=== PATIENT | male | born 1935 | race Caucasian/White ===

== ENCOUNTER → 2019-03-26 | Outpatient (CLI) | payer MEDICARE, SELFPAY | END | disposition home or self-care (01) | PROVIDERS: PCP Family Medicine; Referring Provider Family Medicine; Visit Provider Family Medicine | DX: R06.9 Unspecified abnormalities of breathing (principal) | CPT/HCPCS: 86140 ==

== ENCOUNTER 2019-10-27 09:58 | Inpatient (IN) | payer MEDICARE, SELFPAY ==
[2019-10-27] VITALS (13 sets, daily range): BP systolic 106–160; BP diastolic 57–149; PULSE 60–64; RESP 16; TEMP 36.6–37; O2SAT 95–100; BMI 25.0; BMI 22.1
[2019-10-27] MEDS: Lactated Ringers 1,000 ML 100 ML IV (10:45)
[2019-10-27 10:51] LABS: International Normalized Ratio 1.9
[2019-10-27] MEDS: Cefazolin 2 GM in 0.9% Normal Saline 100 ML IV (13:08)
--- NOTE | 2019-10-27 15:05 | OP.PCM_ITS ---
Report of Operation Date of Procedure: 10/27/19 Pre-Operative Diagnosis: Left knee popliteal fossa abscess Post-Operative Diagnosis: Left knee popliteal fossa abscess Surgery/Procedure Performed:: Irrigation debridement irrigation debridement left knee popliteal fossa abscess skin subcutaneous tissue fat fascia and muscle. Description of Surgical Findings:: Total size of the wound was 10 cm x 5 cm with 3 cm in depth. There was tracking proximally under the hamstrings 5 cm. human projectile: Marcel Harden Type of Anesthesia:: General Anesthesiologist: Edy Real Special Medications: Ancef and vancomycin after cultures were taken Specimen's removed: Cultures tissue from the abscess Estimated Blood Loss (mL): 150 mL Fluids Replaced: Crystalloid Description of Procedure: On the day of the procedure patient's left lower extremity was marked in the preoperative area. We again went over risks and benefits of surgery. At this time we proceeded back to the operating room where patient received anesthetic from anesthesia. They assume control C-spine airway and remained controlled throughout remainder procedure. Patient was then flipped to the bed in the prone position with all bony prominences well-padded and chest well-padded. At this time we noted patient had significant thin skin and he did sustain some skin tears during positioning. Patient skin was well taken care of with additional precautions. Feet were placed on a pad. At this time the remaining bony prominences were identified and well-padded. The area was prepped with Betadine while the surgeon scrubbed. Upon reentering the room the area was draped in sterile orthopedic fashion and timeout was called. When agreed upon the side, the site, should be performed, patient's identity and antibiotics that would be given after cultures were taken. At this time the wound was marked out ellipsing both of the posterior wounds which were 2 cm x 2 cm and 1 cm x 1 cm. The surrounding violaceous skin was also set up for ellipse. Incision was taken through skin and subtenons tissue. We encountered a large area of purulent and necrotic tissue this area was carefully debrided debriding skin subtenons tissue fat fascia and even muscle. We are able to track 5 cm up underneath the hamstrings deep. We were careful to protect any vital structures. We used sharp dissection as well as curettage to debride these areas. Once this was completed hemostasis was obta ined. 6 L of normal saline were irrigated throughout the wound under low- pressure lavage. Once this was done the wound was packed using Kerlix soaked in Betadine. Sterile dressing was placed over top and an David bandage was placed. Patient was in placed in the supine position and placed in a knee immobilizer. Patient was awakened anesthesia and transferred the PACU for recovery. Postop plan for this patient we will consult the wound care nurse in-house. We will consult the wound center to help manage the wound long-term. Patient will remain in a knee immobilizer with limited motion due to the posterior knee wound at this time. Infectious disease will also be consulted for chronic suppression of any continuing infection. There is significant possibility patient may need to return for repeat debridements if infection is not contained with wound management. - Complications none - Admit VTE Documentation VTE Present on Admission: No VTE Mechan Device Prophylaxis: SCD's VTE Pharm Prophylaxis ordered?: Yes
[2019-10-27 15:46] LABS: Prothrombin Time Fingerstick 20.3 SEC (11.9-14.4)
--- NOTE | 2019-10-27 15:46 | CON.PCM_ITS ---
Problem List (1) Left popliteal fossa abscess Status: Acute (2) Valvular heart disease Status: Chronic (3) S/P AVR (aortic valve replacement) Status: Chronic (4) S/P mitral valve repair Status: Chronic (5) CHF (congestive heart failure) Status: Chronic Qualifiers: Heart failure type: unspecified Heart failure chronicity: chronic Qualified Code(s): I50.9 - Heart failure, unspecified Comment: Suspect systolic (6) HTN (hypertension) Status: Chronic Qualifiers: Hypertension type: essential hypertension Qualified Code(s): I10 - Essential (primary) hypertension (7) HLD (hyperlipidemia) Status: Chronic Qualifiers: Hyperlipidemia type: unspecified Qualified Code(s): E78.5 - Hyperlipidemia, unspecified (8) PAF (paroxysmal atrial fibrillation) Status: Acute (9) Status cardiac pacemaker Status: Acute (10) BPH (benign prostatic hyperplasia) Status: Acute Reason for Consult Date of Consultation: 10/27/19 Reason for Consultation: Medical consultation History of Present Illness: The patient is a 84 y/o M w/ PMHx: BL LE Chronic venous stasis disease, Colon CA s/p resection, Valvular Heart Disease s/p AVR and mitral valve repair 2014, PAF, CHF (suspect systolic) s/p pacemaker status ([employer]), Hx CVA/TIA, 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 Haywood secondary to ongoing pain and outpatient evaluation with noted left knee popliteal fossa abscess. Patient notes pain controlled currently. He is laying in bed with the immobilizer in place. Postoperatively noted intention for wound care at home as well as aggressive follow-up with wound care center with knee immobilizer and therapy as needed as well as infectious disease consult. Medical consultation requested for medical management. Past Medical History Past Medical History (Chronic Problems): Chronic Problems Valvular heart disease (Chronic) S/P AVR (aortic valve replacement) (Chronic) S/P mitral valve repair (Chronic) CHF (congestive heart failure) (Chronic) Suspect systolic HTN (hypertension) (Chronic) HLD (hyperlipidemia) (Chronic) Allergies soap Allergy (Verified 10/27/19 10:28) PT UNSURE OF REACTION Home Medications: Ambulatory Orders Medication Instructions Recorded Amiodarone HCl [Cordarone] 200 mg PO DAILY 10/26/19 Cefdinir 300 mg PO DAILY 10/26/19 Cholecalciferol (VIT D3) [Vitamin 1,000 unit PO DAILY 10/26/19 D] Doxycycline 100 mg PO BID 10/26/19 Furosemide [Lasix] 80 mg PO DAILY 10/26/19 Lisinopril [Zestril] 2.5 mg PO DAILY 10/26/19 Metoprolol Succinate [Toprol Xl] 25 mg PO DAILY 10/26/19 Pantoprazole Sodium [Protonix] 40 mg PO BID 10/26/19 Potassium Chloride [Klor-Con M20] 30 meq PO DAILY 10/26/19 Saccharomyces Boulardii [Probiotic] 250 mg PO DAILY 10/26/19 Simvastatin [Zocor] 40 mg PO QHS 10/26/19 Tamsulosin HCl [Flomax] 0.4 mg PO DAILY 10/26/19 Warfarin [Coumadin ([facility])] 1 mg PO SUMOWEFR 10/26/19 Warfarin [Coumadin ([facility])] 2 mg PO TUTHSA 10/26/19 traZODone [Desyrel] 100 mg PO QHS 10/26/19 Surgical History: - - Colon cancer resection, appendectomy, abdominal hernia repair, liver cyst intervention, pacemaker placement with replacement, aortic valve replacement, tonsillectomy, left hip replacement, left total knee replacement, left total knee repair, recent left posterior knee abscess I&D. Psychiatric History: No pertinent psych hx Lives: Spouse/ Significant Other Smoking Status: Never smoker Tobacco Use: Non-smoker Alcohol: None Drugs: None - *Family History Maternal History Items: Heart Disease, Hypertension Paternal History Items: Heart Disease Review of Systems Constitutional: Reports: Fatigue. Denies: Anorexia, Chills, Fever, Malaise, Weakness, Weight Change HEENT: Denies: Head Aches, Sinus Congestion, Sinus Drainage Cardiovascular: Reports: Edema. Denies: Chest Pain, Chest Pressure, Chest Tightness, Light Headedness, Orthopnea, Palpitations, Syncope Respiratory: Reports: Shortness of breath upon exertion. Denies: Cough, Shortness of Breath, Shortness of breath at rest, Sputum production Gastrointestinal: Denies: Abdominal Pain, Nausea, Vomiting Genitourinary: Denies: Dysuria Musculoskeletal: Reports: Joint Pain, Joint stiffness, Joint swelling, Joint Tenderness, Leg Pain Skin: Reports: Skin Changes. Denies: Rash, Wounds Neurological: Denies: Numbness, Tingling, Focal weakness Psychiatric: Denies: Anxiety, Depression, Homicidal Ideations, Suicidal Ideations Hematologic/ Lymphatic: Reports: Easy Bruising, Easy Bleeding Patient Problems: Active and Suspected Problems Left popliteal fossa abscess (Acute) PAF (paroxysmal atrial fibrillation) (Acute) Status cardiac pacemaker (Acute) BPH (benign prostatic hyperplasia) (Acute) Subjective: Did upright in the medical surgical bed, denies any current pain, left lower extremity elevated. Objective: Physical Examination: General: awake, alert, oriented x 3 and cooperative, seated upright in the MS bed in no apparent distress. Skin: normal color, turgor, no icterus, cyanosis significant bilateral lower extremity chronic venous stasis skin changes, chronic, status post recent left posterior knee I&D with dressing in place. HEENT: AT/NC, EOMI, PERRLA, MMM, no carotid bruits or JVD noted. Lungs: CTA bilaterally, moderate effort, moderate decrease BL bases, no rales, ronchi or wheezing. Heart: Regular rate and rhythm (paced); no gallop, rub audible, s/p AVR. Abdomen: soft, NTTP, ND, normal BS, no HSM. Extremities: no cyanosis, clubbing, s/p I+D L posterior knee, dressing in place, chronic stasis skin changes, BL LE edema/pitting. Neurological: patient awake, alert, oriented x 3; cognitive function intact; pupils equally reactive to light and accomodation; cranial nerves II-XII grossly normal, moving all extremities except limited left lower extremity movement secondary to knee immobilizer and recent I&D, strength accordingly moderately to severely global decrease. Psychiatric: affect appears normal, no acute evidence of depressive or anxiety feelings. - Physical Exam Vitals/I&O's: Vital Signs Temp Pulse Resp BP Pulse Ox 97.8 F 64 16 160/149 H 99 10/27/19 15:08 10/27/19 14:38 10/27/19 15:08 10/27/19 15:08 10/27/19 15:08 Oxygen Delivery Method Room Air Weight: 174 lb 13.225 oz Body Mass Index (BMI) 25.0 Intake and Output for Last 24 Hours 10/25/19 10/26/19 10/27/19 23:59 23:59 23:59 Intake Total 385 / 385 Balance 385 / 385 Laboratory Results 10/27/19 10:21: POC PT Pending, INR Pending 10/27/19 10:26: PT 21.0 H, INR 1.9 Current Medications Hydrocodone Bitart/Acetaminophen (Funk 5mg-325mg) 1 - 2 tablet PO Q6H PRN PRN PRN Reason: Pain Score 1-5/10 Amiodarone HCl (Cordarone) 200 mg PO DAILY [facility] Atorvastatin Calcium (Lipitor) 20 mg PO QHS [facility] Cefdinir (Omnicef [Equiv]) 300 mg PO DAILY [facility] Cholecalciferol (Vitamin D (25mcg)) 1,000 unit PO DAILYCM [facility] Doxycycline Monohydrate (Doxycycline) 100 mg PO BID [facility] Furosemide (Lasix) 80 mg PO DAILY [facility] Lactated Ringer's () 1,000 mls @ 100 mls/hr IV .Q10H [facility] Last Admin: 10/27/19 10:45 Dose: 100 mls/hr Documented by: Lactated Ringer's () 1,000 mls @ 80 mls/hr IV .[id number] [facility] Cefazolin Sodium () 1 gm in 50 mls @ 150 mls/hr IV Q8H [facility] Stop: 10/28/19 05:19 Lisinopril (Zestril) 2.5 mg PO DAILY [facility] Metoprolol Succinate (Toprol Xl (Beta Philip)) 25 mg PO DAILY [facility] Morphine Sulfate () 2 mg IV Q3H PRN PRN PRN Reason: Pain Score 6-10/10 Ondansetron HCl (Zofran) 4 mg IV Q8H PRN PRN PRN Reason: Nausea Pantoprazole Sodium (Protonix) 40 mg PO BID [facility] Potassium Chlor[facility] (K[facility]Dur) [facility] Sodium Chloride () 10 - 40 ml IV UD PRN PRN Reason: SALINE FLUSH Tamsulosin HCl (Flomax) 0.4 mg PO DAILY@1730 [facility] Trazodone HCl (Desyrel) 100 mg PO QHS [facility] Warfarin Sodium (Jantoven) 1 mg PO SuMoWeFr@1700 [facility] Warfarin Sodium (Jantoven) 2 mg PO TuThSa@1700 [facility] Assessment/Plan All Active Problems Left popliteal fossa abscess (Acute) PAF (paroxysmal atrial fibrillation) (Acute) Status cardiac pacemaker (Acute) BPH (benign prostatic hyperplasia) (Acute) The patient is a 84 y/o M w/ PMHx: Colon CA s/p resection, Valvular Heart Disease s/p AVR and mitral valve repair 2014, PAF, CHF (suspect systolic) s/p pacemaker status, Hx CVA/TIA, 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 Haywood. 1. Intractable left knee pain secondary to acute left knee popliteal fossa abscess: Failed conservative therapies and treatments, admitted per Dr. Haywood for planned L posterior knee I+D, post-operative pain management, bowel regimen, DVT Prophylaxis, PT/OT/CM per Orthopedic surgery discretion. Currently maintained on IV Ancef and Chandan cycling, noted pending infectious disease consultation. 2. Chronic CHF, unclear specific type: We will continue patient Coumadin once allowed with INR trending, Lasix, lisinopril, metoprolol, statin therapy. 3. PAF: s/p pacemaker status, recent evaluation unremarkable, continue patient home amiodarone, metoprolol, Coumadin once cleared per orthopedic surgery with INR trending. 4. Valvular heart disease: Status post AVR and mitral valve repair 2014, no echocardiogram noted in [facility]. 5. Hypertension: Continue home regimen including metoprolol, lisinopril, Lasix with hold parameters, PRN hydralazine. 6. Hyperlipidemia: Continue home statin regimen. 7. BPH: We will continue patient on Flomax regimen. 8. GERD: We will continue patient home Protonix regimen. 9. Hx TIA/CVA: Will continue home coumadin regimen with INR trending once restarted, continue HTN, HLD regimen. 10. History of colon cancer: Status post resection, in remission, previously followed with oncologist 11. DVT prophylaxis: SCDs per orthopedic surgery discretion, resume Coumadin once allowed with INR trending. 12. CODE status: Patient JUAN is his who is present and living will is in place. Discussed CODE status at length including difference between FULL code, DNR-CCA and DNR-CC status. Following discussions about the differences in these status, requested DNR-CCA, no intubation status. Advanced Care Planning Face to Face Time: 16 minutes. Inpatient E&M: 63125 Subs Hosp L3 Procedures: 77918 Advncd Care Plan 30 Min
[2019-10-27] MEDS: Tamsulosin HCl 0.4 MG Capsule PO (17:04)
--- NOTE | 2019-10-27 19:16 | NURSING ---
Dr. Fish paged on drop on blood pressure 20% . Current iv bag is to be complete and then saline lock. Also immobilizer to left leg was removed and dressing dry and intact no drainage noted on his sophie wrap.
[2019-10-27] MEDS: Cefazolin 1 GM/50 ML BAG IV (21:10)
[2019-10-27] MEDS: Doxycycline 100 MG CAPSULE PO (21:11)
[2019-10-27] MEDS: Atorvastatin Calcium 20 MG Tablet PO (21:11)
[2019-10-27] MEDS: Pantoprazole Sodium 40 MG Tablet PO (21:11)
[2019-10-27] MEDS: traZODone 100 MG Tablet PO (21:13)
[2019-10-27] MEDS: HYDROcodone Bitartrate/Apap 5/325 Tablet PO ×2 (21:17→22:53)
[2019-10-28] VITALS: BP 142/99
[2019-10-28 02:00] VITALS: BP 108/51; PULSE 61; RESP 16; TEMP 36.6; O2SAT 94
[2019-10-28 03:08] VITALS: BMI 22.1
[2019-10-28] MEDS: Cefazolin 1 GM/50 ML BAG IV (05:08)
[2019-10-28 05:31] VITALS: BMI 22.1
[2019-10-28 05:46] LABS: Absolute Lymphocyte Count 0.82 X10^3/uL (0.83-4.51); Basophil# 0.02 X10^3/uL; Basophil% 0.4 % (0-1); Eosinophil# 0.11 X10^3/uL; Hematocrit 32.9 % (40-54); Hemoglobin 9.6 g/dL (13.0-16.5); Lymphocyte # 0.82 X10^3/ul (4.0); Lymphocyte % 14.9 % (19-41); Mean Corp Hgb Conc 29.2 g/dL (32-36); Mean Corpuscular Volume 95.9 fL (80-94); Monocyte# 0.55 X10^3/uL; NRBC Flagged by Analyzer 0 % (0-5); Neutrophil % 72.3 % (47-70); Platelet Count 122 K/mm3 (150-450); RBC Distribution Width CV 17.2 % (11.6-14.6); Red Blood Count 3.43 M/mm3 (4.6-6.2); White Blood Count 5.5 K/mm3 (4.4-11.0)
[2019-10-28 06:24] LABS: ALB/GLOB Ratio 0.8 RATIO (0.9-2.4); AST(SGOT) 23 U/L (15-37); Alanine Aminotransfer ALT/SGPT 22 U/L (16-61); Albumin, Serum 2.3 g/dL (3.2-5.0); Alkaline Phosphatase 55 U/L (45-117); Anion Gap 5 (5-15); BUN 14 mg/dL (7-18); BUN/Creat Ratio 17.7 RATIO (10-20); Calcium,Total 7.7 mg/dL (8.5-10.1); Chloride 103 mmol/L (98-107); Creatinine, Serum 0.79 mg/dL (0.70-1.30); EST Glomerular Filtration Rate 99 mL/min (>60); Est Glom Filt Rate - Afr Amer 120 mL/min (>60); Estimated Creatinine Clearance 56.78 ml/min; Glucose 79 mg/dL (74-106); Potassium 4.1 mmol/L (3.5-5.1); Protein, Total 5.3 g/dL (6.4-8.2); Sodium Level 135 mmol/L (136-145)
[2019-10-28 07:00] LABS: International Normalized Ratio 1.8; Prothrombin Time (Protime)PT. 20.6 SECONDS (11.7-14.9)
--- NOTE | 2019-10-28 07:43 | PCM.HP.ID ---
Reason for Consult: Left posterior knee fossa soft tissue infection Consulted by: Dr. Haywood History of Present Illness: The patient is a 84 year old M [] This a very pleasant 84-year-old gentleman with past medical history of valvular heart disease status post aortic valve replacement and mitral valve repair in the past, pacemaker placement, who is had problems with left posterior fossa soft tissue infection and drainage for the past 2 weeks. Patient was taken to the operating room yesterday for surgical I&D at that site. Patient describes the drainage is foul-smelling, operative note reviewed. Patient denies any fevers prior to coming to the hospital. He is currently on oral cephalosporin plus doxycycline. Overall clinically stable postop. Intraoperative cultures are pending. - Medical History Past Medical History (Chronic Problems): Chronic Problems Valvular heart disease (Chronic) S/P AVR (aortic valve replacement) (Chronic) S/P mitral valve repair (Chronic) CHF (congestive heart failure) (Chronic) Suspect systolic HTN (hypertension) (Chronic) HLD (hyperlipidemia) (Chronic) Allergies/Adverse Reactions: Allergies soap Allergy (Verified 10/27/19 10:28) PT UNSURE OF REACTION Home Medications: Ambulatory Orders Medication Instructions Recorded Amiodarone HCl [Cordarone] 200 mg PO DAILY 10/26/19 Cefdinir 300 mg PO DAILY 10/26/19 Cholecalciferol (VIT D3) [Vitamin 1,000 unit PO DAILY 10/26/19 D] Doxycycline 100 mg PO BID 10/26/19 Furosemide [Lasix] 80 mg PO DAILY 10/26/19 Lisinopril [Zestril] 2.5 mg PO DAILY 10/26/19 Metoprolol Succinate [Toprol Xl] 25 mg PO DAILY 10/26/19 Pantoprazole Sodium [Protonix] 40 mg PO BID 10/26/19 Potassium Chloride [Klor-Con M20] 30 meq PO DAILY 10/26/19 Saccharomyces Boulardii [Probiotic] 250 mg PO DAILY 10/26/19 Simvastatin [Zocor] 40 mg PO QHS 10/26/19 Tamsulosin HCl [Flomax] 0.4 mg PO DAILY 10/26/19 Warfarin [Coumadin ([facility])] 1 mg PO SUMOWEFR 10/26/19 Warfarin [Coumadin ([facility])] 2 mg PO TUTHSA 10/26/19 traZODone [Desyrel] 100 mg PO QHS 10/26/19 Vital Signs Temp Pulse Resp BP Pulse Ox 97.9 F 61 16 108/51 L 94 10/28/19 02:00 10/28/19 02:00 10/28/19 02:00 10/28/19 02:00 10/28/19 02:00 Oxygen Delivery Method Room Air Weight: 79.3 kg Body Mass Index (BMI) 25.0 Responsive does not appear toxic lungs are clear heart exam S1-S2 with a systolic click abdomen soft nontender. Left leg postop dressings are in place Laboratory Tests Past 24 Hrs 10/27/19 10/27/19 10/28/19 10:21 10:26 05:08 WBC 5.5 RBC 3.43 L Hgb 9.6 L Hct 32.9 L MCV 95.9 H MCH 28.0 MCHC 29.2 L RDW Std Deviation 60.0 H RDW Coeff of Nilo 17.2 H Plt Count 122 L MPV 10.0 Immature Gran % (Auto) 0.400 Neut % (Auto) 72.3 H Lymph % (Auto) 14.9 L Lamar % (Auto) 10.0 Eos % (Auto) 2.0 Baso % (Auto) 0.4 Absolute Neuts (auto) 4.0 Absolute Lymphs (auto) 0.82 L Nucleated RBC % 0 POC PT 20.3 H PT 21.0 H INR 1.70 1.9 Sodium Potassium Chloride Carbon Dioxide Anion Gap BUN Creatinine Estim Creat Clear Calc Est GFR (MDRD) Af Amer Est GFR (MDRD) Non-Af BUN/Creatinine Ratio Glucose Calcium Total Bilirubin AST ALT Alkaline Phosphatase Total Protein Albumin Globulin Albumin/Globulin Ratio 10/28/19 10/28/19 05:08 05:08 WBC RBC Hgb Hct MCV MCH MCHC RDW Std Deviation RDW Coeff of Nilo Plt Count MPV Immature Gran % (Auto) Neut % (Auto) Lymph % (Auto) Lamar % (Auto) Eos % (Auto) Baso % (Auto) Absolute Neuts (auto) Absolute Lymphs (auto) Nucleated RBC % POC PT PT 20.6 H INR 1.8 Sodium 135 L Potassium 4.1 Chloride 103 Carbon Dioxide 27.0 Anion Gap 5 BUN 14 Creatinine 0.79 Estim Creat Clear Calc 56.78 Est GFR (MDRD) Af Amer 120 Est GFR (MDRD) Non-Af 99 BUN/Creatinine Ratio 17.7 Glucose 79 Calcium 7.7 L Total Bilirubin 1.00 AST 23 ALT 22 Alkaline Phosphatase 55 Total Protein 5.3 L Albumin 2.3 L Globulin 3.0 Albumin/Globulin Ratio 0.8 L - Other Studies Radiology: [] Other Studies: [] Route of nutrition/ use of supplements: [] Nutritional Intake: [] IV Site: [] Giraldo Catheter: [] - Assessment/Plan Antibiotics: [] Assessment/Plan: [] Active and Suspected Problems Left popliteal fossa abscess (Acute) PAF (paroxysmal atrial fibrillation) (Acute) Status cardiac pacemaker (Acute) BPH (benign prostatic hyperplasia) (Acute) Popliteal fossa soft tissue abscess status post surgical I&D. At this point will treat with Unasyn 3 g IV every 6 hours and follow the intraoperative cultures.
[2019-10-28 08:00] VITALS: BP 148/98; PULSE 62; RESP 18; TEMP 36.6; O2SAT 98
[2019-10-28] MEDS: HYDROcodone Bitartrate/Apap 5/325 Tablet PO (08:06)
--- NOTE | 2019-10-28 08:57 | PN.ORTHO_ITS ---
Patient Problems: Active and Suspected Problems Left popliteal fossa abscess (Acute) PAF (paroxysmal atrial fibrillation) (Acute) Status cardiac pacemaker (Acute) BPH (benign prostatic hyperplasia) (Acute) Subjective: The patient was sitting in bed upon examination. Patient denies any chest pain, shortness of breath, dizziness, lightheadedness, nausea or vomiting, or calf pain. Pain is controlled on medications. No adverse overnight events. Patient is currently in a knee immobilizer for the left lower extremity. Wound nurse has been consulted for management. Patient will require set up for wound center postoperatively. Patient lives in [facility] with his . He does wish to try to go home. Infectious disease has been consulted and are managing antibiotics. We are following cultures. Antibiotics will be determined once postoperative cultures are back. Objective: Vital signs stable and afebrile. Patient is able to plantarflex and dorsiflex actively. Sensation is intact to light touch to saphenous, sural, superficial and deep peroneal, and tibial distribution. Knee immobilizer in place. Patient has postoperative dressing with David wrap with no breakthrough drainage. Negative Homans bilaterally, negative signs and symptoms of DVT. - Physical Exam Vitals/I&O's: Vital Signs Temp Pulse Resp BP Pulse Ox 97.9 F 61 16 108/51 L 94 10/28/19 02:00 10/28/19 02:00 10/28/19 02:00 10/28/19 02:00 10/28/19 02:00 Oxygen Delivery Method Room Air Weight: 79.3 kg Body Mass Index (BMI) 25.0 Intake and Output for Last 24 Hours 10/26/19 10/27/19 10/28/19 23:59 23:59 23:59 Intake Total 2185 / 2435 400 / 400 Output Total 325 / 325 Balance 2185 / 2435 75 / 75 Laboratory Results 10/27/19 10:21: POC PT 20.3 H, INR 1.70 10/27/19 10:26: PT 21.0 H, INR 1.9 10/28/19 05:08: WBC 5.5, RBC 3.43 L, Hgb 9.6 L, Hct 32.9 L, MCV 95.9 H, MCH 28.0, MCHC 29.2 L, RDW Std Deviation 60.0 H, RDW Coeff of Nilo 17.2 H, Plt Count 122 L, MPV 10.0, Immature Gran % (Auto) 0.400, Neut % (Auto) 72.3 H, Lymph % (Auto) 14.9 L, [place] % (Auto) 10.0, Eos % (Auto) 2.0, Baso % (Auto) 0.4, Absolute Neuts (auto) 4.0, Absolute Lymphs (auto) 0.82 L, Nucleated RBC % 0 10/28/19 05:08: Sodium 135 L, Potassium 4.1, Chloride 103, Carbon Dioxide 27.0, Anion Gap 5, BUN 14, Creatinine 0.79, Estim Creat Clear Calc 56.78, Est GFR (MDRD) Af Amer 120, Est GFR (MDRD) Non-Af 99, BUN/Creatinine Ratio 17.7, Glucose 79, Calcium 7.7 L, Total Bilirubin 1.00, AST 23, ALT 22, Alkaline Phosphatase 55, Total Protein 5.3 L, Albumin 2.3 L, Globulin 3.0, Albumin/Globulin Ratio 0.8 L 10/28/19 05:08: PT 20.6 H, INR 1.8 Current Medications Hydrocodone Bitart/Acetaminophen ([place] 5mg-325mg) 1 - 2 tablet PO Q6H PRN PRN PRN Reason: Pain Score 1-5/10 Last Admin: 10/28/19 08:06 Dose: 2 tablet Documented by: Albuterol Sulfate (Ventolin Aerosols) 2.5 mg INHALATION Q2H PRN PRN PRN Reason: Dyspnea, wheezing Amiodarone HCl (Cordarone) 200 mg PO DAILY [facility] Atorvastatin Calcium (Lipitor) 20 mg PO QHS [facility] Last Admin: 10/27/19 21:11 Dose: 20 mg Documented by: Cholecalciferol (Vitamin D (25mcg)) [facility] Last Admin: 10/28/19 08:07 Dose: 1,000 unit Documented by: Furosemide (Lasix) 80 mg PO DAILY [facility] Hydralazine HCl (Apresoline Iv) 10 mg IV Q4H PRN PRN PRN Reason: SBP > 160 Lactated Ringer's () 1,000 mls @ 80 mls/hr IV .[id number] [facility] Last Admin: 10/28/19 05:33 Dose: Not Given Documented by: Ampicillin Sodium/Sulbactam (Sodium 3 gm/ Sodium Chloride) 112 mls @ 150 mls/hr IV Q6 [facility] Lisinopril (Zestril) 2.5 mg PO DAILY [facility] Metoprolol Succinate (Toprol Xl (Beta Philip)) 25 mg PO DAILY [facility] Morphine Sulfate () 2 mg IV Q3H PRN PRN PRN Reason: Pain Score 6-10/10 Ondansetron HCl (Zofran) 4 mg IV Q8H PRN PRN PRN Reason: Nausea Pantoprazole Sodium (Protonix) 40 mg PO BID [facility] Last Admin: 10/27/19 21:11 Dose: 40 mg Documented by: Potassium Chloride (K-Dur) [facility] Last Admin: 10/28/19 08:07 Dose: 30 meq Documented by: Sodium Chloride () 10 - 40 ml IV UD PRN PRN Reason: SALINE FLUSH Tamsulosin HCl (Flomax) 0.4 mg PO DAILY@1730 [facility] Last Admin: 10/27/19 17:04 Dose: 0.4 mg Documented by: Trazodone HCl (Desyrel) 100 mg PO QHS [facility] Last Admin: 10/27/19 21:13 Dose: 100 mg Documented by: Warfarin Sodium (Jantoven) 1 mg PO SuMoWeFr@1700 [facility] Warfarin Sodium (Jantoven) 2 mg PO TuThSa@1700 [facility] Medical Necessity - Tobacco Use Smoking Status: Never smoker Tobacco Use: Non-smoker Assessment/Plan All Active Problems Left popliteal fossa abscess (Acute) PAF (paroxysmal atrial fibrillation) (Acute) Status cardiac pacemaker (Acute) BPH (benign prostatic hyperplasia) (Acute) 1. S/P irrigation debridement left knee popliteal fossa abscess, skin subcutaneous tissue, fat fascia, and muscle POD #1 2. Continue Pain Medications: [place] 3. DVT Prophylaxis: Patient has been placed back on his warfarin 4. PT/OT: Continue with knee immobilizer, no range of motion secondary to wound management. 5. H & H: 9.6/32.9, asymptomatic. Secondary to acute blood loss. 6. Encouraged Incentive Spirometry 7. Continue postoperative medical management per medicine 8. Infectious disease consultation: Continue antibiotics per infectious disease. Patient is currently on Unasyn while following cultures. 9. Disposition: Plan will be for possible discharge home once antibiotics have been set up. I would like physical therapy to assess patient to see if he is able to be discharged home safely. Case management will be on board. Patient will require follow-up with the wound center for management. We will also require follow-up with infectious disease for management of antibiotics..
[2019-10-28 10:04] VITALS: PULSE 62
[2019-10-28] MEDS: Pantoprazole Sodium 40 MG Tablet PO ×2 (10:04→22:34)
[2019-10-28] MEDS: Amiodarone 200 MG Tablet PO (10:04)
[2019-10-28] MEDS: Metoprolol(XL)Succ 25 MG Tablet PO (10:04)
[2019-10-28] MEDS: Furosemide 80 MG Tablet PO (10:05)
[2019-10-28] MEDS: Lisinopril 2.5 MG Tablet PO (10:05)
--- NOTE | 2019-10-28 10:40 | PN_ITS ---
Patient Problems: Active and Suspected Problems Left popliteal fossa abscess (Acute) PAF (paroxysmal atrial fibrillation) (Acute) Status cardiac pacemaker (Acute) BPH (benign prostatic hyperplasia) (Acute) Subjective: Patient seen and examined. Complains of intermittent sharp pain behind his left knee which resolves quickly. Denies fever, chills. Denies other complaints. - Physical Exam Vitals/I&O's: Vital Signs Temp Pulse Resp BP Pulse Ox 97.9 F 62 18 148/98 H 98 10/28/19 08:00 10/28/19 10:04 10/28/19 08:00 10/28/19 08:00 10/28/19 08:00 Oxygen Delivery Method Room Air Weight: 174 lb 13.225 oz Body Mass Index (BMI) 25.0 Intake and Output for Last 24 Hours 10/26/19 10/27/19 10/28/19 23:59 23:59 23:59 Intake Total 2185 / 2435 400 / 400 Output Total 325 / 325 Balance 2185 / 2435 75 / 75 General: Alert, Oriented x3, Cooperative HEENT: Atraumatic, PERRLA, EOMI, Normocephalic Neck: Supple, No JVD, Negative Carotid Bruits Lungs: Clear to auscultation, Normal air movement Cardiovascular: Regular rate, No murmurs Abdomen: Bowel Sounds Present, Soft, Non Tender Extremities: No clubbing, No cyanosis, No edema, Capillary Refill Less than 3 Seconds Skin: No rashes, No breakdown, - - Status post left posterior knee I&D. Surrounding erythema. Musculoskeletal: No Tenderness to Palpation of Joints or Extremities Neurological: Cranial nerves II-XII grossly intact, Neuro grossly intact Psych/Mental Status: Normal Affect, Appropriate Laboratory Results 10/27/19 10:21: POC PT 20.3 H, INR 1.70 10/27/19 10:26: PT 21.0 H, INR 1.9 10/28/19 05:08: WBC 5.5, RBC 3.43 L, Hgb 9.6 L, Hct 32.9 L, MCV 95.9 H, MCH 28.0 , MCHC 29.2 L, RDW Std Deviation 60.0 H, RDW Coeff of Nilo 17.2 H, Plt Count 122 L, MPV 10.0, Immature Gran % (Auto) 0.400, Neut % (Auto) 72.3 H, Lymph % (Auto) 14.9 L, [place] % (Auto) 10.0, Eos % (Auto) 2.0, Baso % (Auto) 0.4, Absolute Neuts (auto) 4.0, Absolute Lymphs (auto) 0.82 L, Nucleated RBC % 0 10/28/19 05:08: Sodium 135 L, Potassium 4.1, Chloride 103, Carbon Dioxide 27.0, Anion Gap 5, BUN 14, Creatinine 0.79, Estim Creat Clear Calc 56.78, Est GFR (MDRD) Af Amer 120, Est GFR (MDRD) Non-Af 99, BUN/Creatinine Ratio 17.7, Glucose 79, Calcium 7.7 L, Total Bilirubin 1.00, AST 23, ALT 22, Alkaline Phosphatase 55, Total Protein 5.3 L, Albumin 2.3 L, Globulin 3.0, Albumin/Globulin Ratio 0.8 L 10/28/19 05:08: PT 20.6 H, INR 1.8 Current Medications Hydrocodone Bitart/Acetaminophen ([place] 5mg-325mg) 1 - 2 tablet PO Q6H PRN PRN PRN Reason: Pain Score 1-5/10 Last Admin: 10/28/19 08:06 Dose: 2 tablet Documented by: Albuterol Sulfate (Ventolin Aerosols) 2.5 mg INHALATION Q2H PRN PRN PRN Reason: Dyspnea, wheezing Amiodarone HCl (Cordarone) 200 mg PO DAILY [facility] Last Admin: 10/28/19 10:04 Dose: 200 mg Documented by: Atorvastatin Calcium (Lipitor) 20 mg PO QHS [facility] Last Admin: 10/27/19 21:11 Dose: 20 mg Documented by: Cholecalciferol (Vitamin D (25mcg)) [facility] Last Admin: 10/28/19 08:07 Dose: 1,000 unit Documented by: Furosemide (Lasix) 80 mg PO DAILY [facility] Last Admin: 10/28/19 10:05 Dose: 80 mg Documented by: Hydralazine HCl (Apresoline Iv) 10 mg IV Q4H PRN PRN PRN Reason: SBP > 160 Lactated Ringer's () 1,000 mls @ 80 mls/hr IV .[id number] [facility] Last Admin: 10/28/19 05:33 Dose: Not Given Documented by: Ampicillin Sodium/Sulbactam (Sodium 3 gm/ Sodium Chloride) 112 mls @ 150 mls/hr IV Q6 [facility] Lisinopril (Zestril) 2.5 mg PO DAILY [facility] Last Admin: 10/28/19 10:05 Dose: 2.5 mg Documented by: Metoprolol Succinate (Toprol Xl (Beta Philip)) 25 mg PO DAILY [facility] Last Admin: 10/28/19 10:04 Dose: 25 mg Documented by: Morphine Sulfate () 2 mg IV Q3H PRN PRN PRN Reason: Pain Score 6-10/10 Ondansetron HCl (Zofran) 4 mg IV Q8H PRN PRN PRN Reason: Nausea Pantoprazole Sodium (Protonix) 40 mg PO BID [facility] Last Admin: 10/28/19 10:04 Dose: 40 mg Documented by: Potassium Chloride (K-Dur) [facility] Last Admin: 10/28/19 08:07 Dose: 30 meq Documented by: Sodium Chloride () 10 - 40 ml IV UD PRN PRN Reason: SALINE FLUSH Tamsulosin HCl (Flomax) 0.4 mg PO DAILY@1730 [facility] Last Admin: 10/27/19 17:04 Dose: 0.4 mg Documented by: Trazodone HCl (Desyrel) 100 mg PO QHS [facility] Last Admin: 10/27/19 21:13 Dose: 100 mg Documented by: Warfarin Sodium (Jantoven) 1 mg PO SuMoWeFr@1700 [facility] Warfarin Sodium (Jantoven) 2 mg PO TuThSa@1700 [facility] Medical Necessity - Tobacco Use Smoking Status: Never smoker Tobacco Use: Non-smoker Assessment/Plan All Active Problems Left popliteal fossa abscess (Acute) PAF (paroxysmal atrial fibrillation) (Acute) Status cardiac pacemaker (Acute) BPH (benign prostatic hyperplasia) (Acute) 1. Chronic CHF, unclear type-no exacerbation. Continue home Lasix, lisinopril regimen. 2. Paroxysmal atrial fibrillation status post pacemaker placement-continue amiodarone, metoprolol. Resume Coumadin. 3. Acute left knee popliteal fossa abscess status post I&D by Dr. Haywood 10/27/2019-on IV Ancef. Cultures pending. ID consulted. Wound RN consult. Patient will need follow-up at wound center at discharge. 4. 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 Hypertension-stable, continue home regimen. 6. Hyperlipidemia-continue statin. 7. BPH-continue Flomax. 8. GERD-continue Protonix. 9. History of TIA/CVA-continue statin. Resume Coumadin when appropriate. 10. History of colon cancer-status post resection. DVT prophylaxis-SCDs, Coumadin This patient was seen by JOSE Matos under the supervision of Dr. Craven.
[2019-10-28 11:08] VITALS: BMI 22.1
[2019-10-28] MEDS: 0.9% Saline Lock 10 ML Syringe IV (12:04)
--- NOTE | 2019-10-28 12:33 | NURSING ---
wound photo: left posteromedial knee
--- NOTE | 2019-10-28 13:38 | CASEMGMT ---
LUIS SOTO Face to Face with patient for initial transition planning/care coordination assessment. LUIS SOTO introduced self and role at [facility]. Patient lying in bed, alert and oriented, at bedside. Patient currently resides at [facility] per Myra. Myra states that Franco DILLON is not able to care for patient when he is discharged from the hospital. and patient would like TCU at discharge. [facility] [place] Per , TCU has bed and available and they are able to accept pending Precert. LUIS SOTO updated patient and and are agreeable to TCU at discharge. Disposition Plan: TCU pending precert Yolanda DALEY, RN, CM
--- NOTE | 2019-10-28 13:45 | CASEMGMT ---
Social Work Note DONNA updated that pt and pt's are agreeable to [facility] TCU. DONNA placed a call to Lana in TCU and provided referral. Lana states she would have a bed available for pt tomorrow. DONNA explained that cultures are still pending and pt will need PT/OT evaluations for pre-cert to be submitted. Lana states understanding. DONNA updated RN CM that TCU is able to accept pending pre-cert. RN CM updated pt and pt's . Pt needs PT/OT evaluations to be completed for pre-cert. SW will submit for pre-cert once PT/OT evaluations are completed. Plan: TCU pending pre-cert Yolanda Golden INDUSTRIAL ENGINEERING DIRECTOR, [employer] LEADER
[2019-10-28 15:00] VITALS: BP 98/74; PULSE 58; RESP 18; TEMP 37.2; O2SAT 98
[2019-10-28 15:08] VITALS: BMI 22.1
--- NOTE | 2019-10-28 16:40 | CASEMGMT ---
Social Work Note PT/OT notes are available. DONNA placed a call to Marivel at [facility] ([phone]) and left message regarding referral. DONNA faxed referral to [facility]. Plan: TCU pending pre-cert Yolanda Golden MSW, OYSTER BED WORKER
[2019-10-28] MEDS: Jantoven 2 MG Tablet PO (16:52)
[2019-10-28] MEDS: Tamsulosin HCl 0.4 MG Capsule PO (16:53)
[2019-10-28 19:08] VITALS: BMI 22.1
[2019-10-28 22:02] VITALS: BP 118/66; PULSE 60; RESP 16; TEMP 37; O2SAT 95
[2019-10-28] MEDS: Atorvastatin Calcium 20 MG Tablet PO (22:34)
[2019-10-28] MEDS: traZODone 100 MG Tablet PO (22:34)
[2019-10-28 23:04] LABS: Probe Check PASS; Specimen Processing Control PASS
[2019-10-29 03:45] VITALS: BP 118/67; PULSE 61; RESP 16; TEMP 36.8; O2SAT 95
[2019-10-29 07:07] LABS: Hematocrit 33.2 % (40-54); Hemoglobin 10.1 g/dL (13.0-16.5); Mean Corp Hgb Conc 30.4 g/dL (32-36); Mean Corpuscular Hgb 28.6 pg (27.0-32.0); Mean Corpuscular Volume 94.1 fL (80-94); Mean Platelet Vol. 10.2 fl (6.2-12.0); Platelet Count 122 K/mm3 (150-450); RBC Distribution Width SD 58.4 fl (35.1-43.9); Red Blood Count 3.53 M/mm3 (4.6-6.2); White Blood Count 6.1 K/mm3 (4.4-11.0)
[2019-10-29 07:10] VITALS: O2SAT 96
--- NOTE | 2019-10-29 07:14 | PCM.PN.ORT ---
Patient Problems: Active and Suspected Problems Left popliteal fossa abscess (Acute) PAF (paroxysmal atrial fibrillation) (Acute) Status cardiac pacemaker (Acute) BPH (benign prostatic hyperplasia) (Acute) Subjective: The patient was sitting in bed upon examination. Patient denies any chest pain, shortness of breath, dizziness, lightheadedness, nausea or vomiting, or calf pain. Pain is controlled on medications. No adverse overnight events. Patient states he does get sharp pains in the posterior aspect of the knee but it is controlled on medications. Wound VAC has been placed over the posterior knee. There is no significant drainage in the tubing and canister. Plan will be for patient to go to the transitional care unit and we are currently waiting on pre-CERT. Objective: Vital signs stable and afebrile. Patient is able to plantarflex and dorsiflex actively. Sensation is intact to light touch to saphenous, sural, superficial and deep peroneal, and tibial distribution. Dressing is clean dry and intact with no breakthrough bleeding Knee immobilizer in place Wound VAC in place with no significant drainage in the canister or tubing Negative Homans bilaterally, negative signs and symptoms of DVT. - Physical Exam Vitals/I&O's: Vital Signs Temp Pulse Resp BP Pulse Ox 98.2 F 61 16 118/67 95 10/29/19 03:45 10/29/19 03:45 10/29/19 03:45 10/29/19 03:45 10/29/19 03:45 Oxygen Delivery Method Room Air Weight: 79.3 kg Body Mass Index (BMI) 25.0 Intake and Output for Last 24 Hours 10/27/19 10/28/19 10/29/19 23:59 23:59 23:59 Intake Total 2185 / 2435 1424 / 1524 524 / 524 Output Total 425 / 525 1550 / 1550 Balance 2185 / 2435 999 / 999 -1026 / -1026 General: Alert, Oriented x3, Cooperative, No apparent distress Microbiology Past 72 Hours 10/27/19 13:50 Tissue - Knee Gram Stain - Final 10/27/19 13:50 Tissue - Knee Wound Culture - Preliminary No growth-Final to follow Laboratory Results 10/28/19 21:13: COVID-19 (LYNNE) Negative 10/29/19 06:00: WBC 6.1, RBC 3.53 L, Hgb 10.1 L, Hct 33.2 L, MCV 94.1 H, MCH 28.6, MCHC 30.4 L, RDW Std Deviation 58.4 H, RDW Coeff of Nilo 17.0 H, Plt Count 122 L, MPV 10.2 10/29/19 06:00: PT Pending, INR Pending Current Medications Hydrocodone Bitart/Acetaminophen ([place] 5mg-325mg) 1 - 2 tablet PO Q6H PRN PRN PRN Reason: Pain Score 1-5/10 Last Admin: 10/28/19 08:06 Dose: 2 tablet Documented by: Albuterol Sulfate (Ventolin Aerosols) 2.5 mg INHALATION Q2H PRN PRN PRN Reason: Dyspnea, wheezing Amiodarone HCl (Cordarone) 200 mg PO DAILY [facility] Last Admin: 10/28/19 10:04 Dose: 200 mg Documented by: Atorvastatin Calcium (Lipitor) 20 mg PO QHS [facility] Last Admin: 10/28/19 22:34 Dose: 20 mg Documented by: Cholecalciferol (Vitamin D (25mcg)) [facility] Last Admin: 10/28/19 08:07 Dose: 1,000 unit Documented by: Furosemide (Lasix) 80 mg PO DAILY [facility] Last Admin: 10/28/19 10:05 Dose: 80 mg Documented by: Hydralazine HCl (Apresoline Iv) 10 mg IV Q4H PRN PRN PRN Reason: SBP > 160 Ampicillin Sodium/Sulbactam (Sodium 3 gm/ Sodium Chloride) 112 mls @ 150 mls/hr IV Q6 [facility] Last Infusion: 10/29/19 06:38 Dose: Infused Documented by: Lisinopril (Zestril) 2.5 mg PO DAILY [facility] Last Admin: 10/28/19 10:05 Dose: 2.5 mg Documented by: Metoprolol Succinate (Toprol Xl (Beta Philip)) 25 mg PO DAILY [facility] Last Admin: 10/28/19 10:04 Dose: 25 mg Documented by: Morphine Sulfate () 2 mg IV Q3H PRN PRN PRN Reason: Pain Score 6-10/10 Ondansetron HCl (Zofran) 4 mg IV Q8H PRN PRN PRN Reason: Nausea Pantoprazole Sodium (Protonix) 40 mg PO BID [facility] Last Admin: 10/28/19 22:34 Dose: 40 mg Documented by: Potassium Chloride (K-Dur) 30 meq PO DAILYCM [facility] Last Admin: 10/28/19 08:07 Dose: 30 meq Documented by: Sodium Chloride () 10 - 40 ml IV UD PRN PRN Reason: SALINE FLUSH Last Admin: 10/28/19 12:04 Dose: 10 ml Documented by: Tamsulosin HCl (Flomax) 0.4 mg PO DAILY@1730 [facility] Last Admin: 10/28/19 16:53 Dose: 0.4 mg Documented by: Trazodone HCl (Desyrel) 100 mg PO QHS [facility] Last Admin: 10/28/19 22:34 Dose: 100 mg Documented by: Warfarin Sodium (Jantoven) 1 mg PO SuMoWeFr@1700 [facility] Warfarin Sodium (Jantoven) 2 mg PO TuThSa@1700 [facility] Last Admin: 10/28/19 16:52 Dose: 2 mg Documented by: Medical Necessity - Tobacco Use Smoking Status: Never smoker Tobacco Use: Non-smoker Assessment/Plan All Active Problems Left popliteal fossa abscess (Acute) PAF (paroxysmal atrial fibrillation) (Acute) Status cardiac pacemaker (Acute) BPH (benign prostatic hyperplasia) (Acute) 1. S/P irrigation debridement left knee popliteal fossa abscess, skin subcutaneous tissue, fat fascia, and muscle POD #2 2. Continue Pain Medications: [place] 3. DVT Prophylaxis: Patient has been placed back on his warfarin 4. PT/OT: Continue with knee immobilizer, no range of motion secondary to wound management. 5. H & H: 10.1/33.2, asymptomatic. Secondary to acute blood loss. 6. Encouraged Incentive Spirometry 7. Continue postoperative medical management per medicine 8. Infectious disease consultation: Continue antibiotics per infectious disease. Patient is currently on Unasyn while following cultures. Preliminary cultures are with no growth and no organisms seen. 9. Disposition: We currently are waiting on pre-CERT for patient to be transitioned over to the transitional care unit. This will be very important as we will be able to follow the wound very closely with the wound center. Patient will need close follow-up with the wound center for management. Currently are waiting on final antibiotics from cultures per infectious disease. We will continue with the wound VAC.
[2019-10-29 07:17] LABS: International Normalized Ratio 1.8; Prothrombin Time (Protime)PT. 19.9 SECONDS (11.7-14.9)
--- NOTE | 2019-10-29 09:03 | CASEMGMT ---
Addendum entered by Becka Randhawa 10/29/19 11:18: Pt ready for discharge. TCU notified and orders faxed. Pt is aware and would like to visit with prior to d/c to TCU. RN made aware. here at this time. FRANCIE Kyle Original Note: Social Work Percert obtained from insurance and pt accepted in TCU. SW met with pt and informed and Pt is agreeable to transfer. Physician notified and plans to discharge pt today. Pt states he will be talking to his and will let her know. Lana in TCU notified of d/c today. FRANCIE Kyle
--- NOTE | 2019-10-29 09:16 | PCM.TXEXTCAR ---
- Diet 10/28/19 10:17 Diet: Cardiac - Heart Healthy Food consistency:: Regular Liquid Consistency:: Regular/Thin Is pt able to select menu?: yes Diet Comments: low vitamin K Pt on coumadin - Routine Orders/Code Status Code Status: DNRCC-A - no intubation - Wound(s) LT KNEE POST Wound Type: Surgical Incision Dressing Change: applied KCI wound VAC LT ARM Wound Type: Skin Tear - Therapies Weight Bearing: knee immobilizer left Physical Therapy: Eval and Treat Occupational Therapy: Eval and Treat - Problem/Diagnosis (1) Left popliteal fossa abscess Status: Acute Current Visit: Yes (2) S/P AVR (aortic valve replacement) Status: Chronic Current Visit: Yes (3) HTN (hypertension) Status: Chronic Current Visit: Yes (4) HLD (hyperlipidemia) Status: Chronic Current Visit: Yes (5) PAF (paroxysmal atrial fibrillation) Status: Chronic Current Visit: Yes - Allergies/Procedures Done in Hospital Allergies/Adverse Reactions: Allergies soap Allergy (Verified 10/27/19 10:28) PT UNSURE OF REACTION Procedures: Wound Vac placement, - - irrigation debridement left knee popliteal fossa abcess 10/27/19 - Type of Care/Length of Stay Estimated LOS: Convalescent Care Less Than 30 days Type of Care Needed: Skilled Rehab Potential: Good Prognosis: Good - Additional Orders/Day of Discharge Day of Discharge: 10/29/19 - Dietary and Speech Recommendations Dietitian Recommendations/Changes: Will provide 1 scoop beneprotein w/ meals to promote wound healing. Will provide ensure pudding/magic cup w/ meals to provide additional abbey/pro if consumed. - Follow Up Care Primary Care Physician: Benjamin Fabian MD [Primary Care Provider] - Please Follow Up With: Radames Haywood MD When: in two weeks if discharged home, otherwise one week after discharge TCU
--- NOTE | 2019-10-29 09:33 | PCM.PROGNOTE ---
Patient Problems: Active and Suspected Problems Left popliteal fossa abscess (Acute) Status cardiac pacemaker (Acute) BPH (benign prostatic hyperplasia) (Acute) Subjective: Patient seen and examined. Denies significant pain. Denies fever, chills. - Physical Exam Vitals/I&O's: Vital Signs Temp Pulse Resp BP Pulse Ox 98.2 F 61 16 118/67 96 10/29/19 03:45 10/29/19 03:45 10/29/19 03:45 10/29/19 03:45 10/29/19 07:10 Oxygen Delivery Method Room Air Weight: 174 lb 13.225 oz Body Mass Index (BMI) 25.0 Intake and Output for Last 24 Hours 10/27/19 10/28/19 10/29/19 23:59 23:59 23:59 Intake Total 2185 / 2435 1424 / 1524 524 / 524 Output Total 425 / 525 1550 / 1550 Balance 2185 / 2435 999 / 999 -1026 / -1026 General: Alert, Oriented x3, Cooperative HEENT: Atraumatic, PERRLA, EOMI, Normocephalic Neck: Supple, No JVD, Negative Carotid Bruits Lungs: Clear to auscultation, Normal air movement Cardiovascular: Regular rate, No murmurs Abdomen: Bowel Sounds Present, Soft, Non Tender Extremities: No clubbing, No cyanosis, No edema, Capillary Refill Less than 3 Seconds Skin: No rashes, No breakdown, - - Status post left posterior knee I&D. Wound VAC and dressing intact. Musculoskeletal: No Tenderness to Palpation of Joints or Extremities Neurological: Cranial nerves II-XII grossly intact, Neuro grossly intact Psych/Mental Status: Normal Affect, Appropriate Microbiology Past 72 Hours 10/27/19 13:50 Tissue - Knee Gram Stain - Final 10/27/19 13:50 Tissue - Knee Wound Culture - Preliminary No growth-Final to follow Laboratory Results 10/28/19 21:13: COVID-19 (LYNNE) Negative 10/29/19 06:00: WBC 6.1, RBC 3.53 L, Hgb 10.1 L, Hct 33.2 L, MCV 94.1 H, MCH 28.6, MCHC 30.4 L, RDW Std Deviation 58.4 H, RDW Coeff of Nilo 17.0 H, Plt Count 122 L, MPV 10.2 10/29/19 06:00: PT 19.9 H, INR 1.8 Current Medications Hydrocodone Bitart/Acetaminophen ([place] 5mg-325mg) 1 - 2 tablet PO Q6H PRN PRN PRN Reason: Pain Score 1-5/10 Last Admin: 10/28/19 08:06 Dose: 2 tablet Documented by: Albuterol Sulfate (Ventolin Aerosols) 2.5 mg INHALATION Q2H PRN PRN PRN Reason: Dyspnea, wheezing Amiodarone HCl (Cordarone) 200 mg PO DAILY [facility] Last Admin: 10/28/19 10:04 Dose: 200 mg Documented by: Atorvastatin Calcium (Lipitor) 20 mg PO QHS [facility] Last Admin: 10/28/19 22:34 Dose: 20 mg Documented by: Cholecalciferol (Vitamin D (25mcg)) [facility] Last Admin: 10/29/19 08:18 Dose: 1,000 unit Documented by: Furosemide (Lasix) 80 mg PO DAILY [facility] Last Admin: 10/28/19 10:05 Dose: 80 mg Documented by: Hydralazine HCl (Apresoline Iv) 10 mg IV Q4H PRN PRN PRN Reason: SBP > 160 Ampicillin Sodium/Sulbactam (Sodium 3 gm/ Sodium Chloride) 112 mls @ 150 mls/hr IV Q6 [facility] Last Infusion: 10/29/19 06:38 Dose: Infused Documented by: Lisinopril (Zestril) 2.5 mg PO DAILY [facility] Last Admin: 10/28/19 10:05 Dose: 2.5 mg Documented by: Metoprolol Succinate (Toprol Xl (Beta Philip)) 25 mg PO DAILY [facility] Last Admin: 10/28/19 10:04 Dose: 25 mg Documented by: Morphine Sulfate () 2 mg IV Q3H PRN PRN PRN Reason: Pain Score 6-10/10 Ondansetron HCl (Zofran) 4 mg IV Q8H PRN PRN PRN Reason: Nausea Pantoprazole Sodium (Protonix) 40 mg PO BID [facility] Last Admin: 10/28/19 22:34 Dose: 40 mg Documented by: Potassium Chloride (K-Dur) [facility]q [facility] Last Admin: 10/29/19 08:17 Dose: 30 meq Documented by: Sodium Chloride () 10 - 40 ml IV UD PRN PRN Reason: SALINE FLUSH Last Admin: 10/28/19 12:04 Dose: 10 ml Documented by: Tamsulosin HCl (Flomax) 0.4 mg PO DAILY@1730 [facility] Last Admin: 10/28/19 16:53 Dose: 0.4 mg Documented by: Trazodone HCl (Desyrel) 100 mg PO QHS [facility] Last Admin: 10/28/19 22:34 Dose: 100 mg Documented by: Warfarin Sodium (Jantoven) 1 mg PO SuMoWeFr@1700 [facility] Warfarin Sodium (Jantoven) 2 mg PO TuThSa@1700 [facility] Last Admin: 10/28/19 16:52 Dose: 2 mg Documented by: Warfarin Sodium (Jantoven) 2 mg PO X1 ONE Stop: 10/29/19 09:32 Medical Necessity - Tobacco Use Smoking Status: Never smoker Tobacco Use: Non-smoker Assessment/Plan All Active Problems Left popliteal fossa abscess (Acute) Status cardiac pacemaker (Acute) BPH (benign prostatic hyperplasia) (Acute) 1. Chronic CHF, unclear type-no exacerbation. Continue home Lasix, lisinopril regimen. 2. Paroxysmal atrial fibrillation status post pacemaker placement-continue amiodarone, metoprolol. Resume Coumadin. 3. Acute left knee popliteal fossa abscess status post I&D by Dr. Haywood 10/27/2019-Cultures preliminary showed no growth, final pending. ID consulted. Wound RN consult. Patient will need follow-up at wound center at discharge. Transition to Augmentin to complete 2-week course per ID recommendations. 4. 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 Hypertension-stable, continue home regimen. 6. Hyperlipidemia-continue statin. 7. BPH-continue Flomax. 8. GERD-continue Protonix. 9. History of TIA/CVA-continue statin, Coumadin. 10. History of colon cancer-status post resection. DVT prophylaxis-SCDs, Coumadin Discharge planning: TCU 10/29/2019. This patient was seen by JOSE Matos under the supervision of Dr. Craven.
[2019-10-29 09:46] VITALS: BP 112/80; PULSE 57; RESP 18; TEMP 36.6; O2SAT 96
[2019-10-29] MEDS: Amiodarone 200 MG Tablet PO (10:01)
[2019-10-29] MEDS: Furosemide 80 MG Tablet PO (10:01)
[2019-10-29] MEDS: Pantoprazole Sodium 40 MG Tablet PO (10:01)
[2019-10-29 10:02] VITALS: BP 112/80; PULSE 57
[2019-10-29] MEDS: HYDROcodone Bitartrate/Apap 5/325 Tablet PO (10:06)
[2019-10-29] MEDS: Jantoven 2 MG Tablet PO (10:08)
--- NOTE | 2019-10-29 10:14 | PHA.DC.MR ---
Pharmacy Service has performed discharge medication reconciliation for this patient. The patient's discharge medication list was reviewed for discrepancies and discrepancies were resolved. Home Medications Amiodarone HCl [Cordarone] 200 mg PO DAILY 10/26/19 Cholecalciferol (VIT D3) [Vitamin D3] 1,000 unit PO DAILY 10/26/19 Furosemide [Lasix] 80 mg PO DAILY 10/26/19 Lisinopril [Zestril] 2.5 mg PO DAILY 10/26/19 Metoprolol Succinate [Toprol Xl] 25 mg PO DAILY 10/26/19 Pantoprazole Sodium [Protonix] 40 mg PO BID 10/26/19 Potassium Chloride [Klor-Con M20] 30 meq PO DAILY 10/26/19 Saccharomyces Boulardii [Probiotic] 250 mg PO DAILY 10/26/19 Simvastatin [Zocor] 40 mg PO QHS 10/26/19 Tamsulosin HCl [Flomax] 0.4 mg PO DAILY 10/26/19 Warfarin [Coumadin] 1 mg PO SUMOWEFR 10/26/19 Warfarin [Coumadin] 2 mg PO TUTHSA 10/26/19 traZODone [Desyrel] 100 mg PO QHS 10/26/19 Amoxicillin/Potassium Clav [Augmentin 875-125 Tablet] 1 ea PO BIDCM #28 tab 10/29/19 Hydrocodone Bitart/Apap 5-325 [[place] 5/325] 1 - 2 tab PO Q6H PRN PRN 7 Days #30 tab 10/29/19
[2019-10-29] MEDS: 0.9% Saline Lock 10 ML Syringe IV (12:16)
--- NOTE | 2019-10-29 12:53 | PN.ID_ITS ---
Patient Problems: Active and Suspected Problems Left popliteal fossa abscess (Acute) Status cardiac pacemaker (Acute) BPH (benign prostatic hyperplasia) (Acute) Subjective: Patient overall clinically stable tolerating Unasyn well. No fever. Currently has to the left popliteal area. I did have the opportunity to talk to the omer yoder's at the bedside and apparently the patient had a complicated left periprosthetic knee infection in late March and required parenteral anabiotic therapy at that time. The surgery occurred at [facility] and I did contact [facility] microbiology; 1 of the 3 specimens from the left knee obtained on March 27 grew Citrobacter koseri. Patient was seen by Dr. Nohemi bonilla and was on a oral suppressive antibiotic. This information was obtained through talking to the patient's . Objective: Not appear toxic lungs are clear heart exam S1-S2 abdomen soft nontender - Physical Exam Vitals/I&O's: Vital Signs Temp Pulse Resp BP Pulse Ox 97.9 F 57 L 18 112/80 96 10/29/19 09:46 10/29/19 10:02 10/29/19 09:46 10/29/19 10:02 10/29/19 09:46 Oxygen Delivery Method Room Air Weight: 79.3 kg Body Mass Index (BMI) 25.0 Intake and Output for Last 24 Hours 10/27/19 10/28/19 10/29/19 23:59 23:59 23:59 Intake Total 2185 / 2435 1424 / 1524 974 / 974 Output Total 425 / 525 1950 / 1950 Balance 2185 / 2435 999 / 999 -976 / -976 Microbiology Past 72 Hours 10/27/19 13:50 Tissue - Knee Gram Stain - Final 10/27/19 13:50 Tissue - Knee Wound Culture - Preliminary No growth-Final to follow Laboratory Results 10/28/19 21:13: COVID-19 (LYNNE) Negative 10/29/19 06:00: WBC 6.1, RBC 3.53 L, Hgb 10.1 L, Hct 33.2 L, MCV 94.1 H, MCH 28.6, MCHC 30.4 L, RDW Std Deviation 58.4 H, RDW Coeff of Nilo 17.0 H, Plt Count 122 L, MPV 10.2 10/29/19 06:00: PT 19.9 H, INR 1.8 Current Medications Hydrocodone Bitart/Acetaminophen ([place] 5mg-325mg) 1 - 2 tablet PO Q6H PRN PRN PRN Reason: Pain Score 1-5/10 Last Admin: 10/29/19 10:06 Dose: 1 tablet Documented by: Albuterol Sulfate (Ventolin Aerosols) 2.5 mg INHALATION Q2H PRN PRN PRN Reason: Dyspnea, wheezing Amiodarone HCl (Cordarone) 200 mg PO DAILY [facility] Last Admin: 10/29/19 10:01 Dose: 200 mg Documented by: Atorvastatin Calcium (Lipitor) 20 mg PO QHS [facility] Last Admin: 10/28/19 22:34 Dose: 20 mg Documented by: Cholecalciferol (Vitamin D (25mcg)) [facility] Last Admin: 10/29/19 08:18 Dose: 1,000 unit Documented by: Furosemide (Lasix) 80 mg PO DAILY [facility] Last Admin: 10/29/19 10:01 Dose: 80 mg Documented by: Hydralazine HCl (Apresoline Iv) 10 mg IV Q4H PRN PRN PRN Reason: SBP > 160 Ampicillin Sodium/Sulbactam (Sodium 3 gm/ Sodium Chloride) 112 mls @ 150 mls/hr IV Q6 [facility] Last Admin: 10/29/19 12:16 Dose: 150 mls/hr Documented by: Lisinopril (Zestril) 2.5 mg PO DAILY [facility] Last Admin: 10/29/19 10:03 Dose: Not Given Documented by: Metoprolol Succinate (Toprol Xl (Beta Philip)) 25 mg PO DAILY [facility] Last Admin: 10/29/19 10:02 Dose: Not Given Documented by: Morphine Sulfate () 2 mg IV Q3H PRN PRN PRN Reason: Pain Score 6-10/10 Ondansetron HCl (Zofran) 4 mg IV Q8H PRN PRN PRN Reason: Nausea Pantoprazole Sodium (Protonix) 40 mg PO BID [facility] Last Admin: 10/29/19 10:01 Dose: 40 mg Documented by: Potassium Chloride (K-Dur) 30 meq PO DAILYCM [facility] Last Admin: 10/29/19 08:17 Dose: 30 meq Documented by: Sodium Chloride () 10 - 40 ml IV UD PRN PRN Reason: SALINE FLUSH Last Admin: 08/28/20 12:16 Dose: 10 ml Documented by: Tamsulosin HCl (Flomax) 0.4 mg PO DAILY@1730 [facility] Last Admin: 10/28/19 16:53 Dose: 0.4 mg Documented by: Trazodone HCl (Desyrel) 100 mg PO QHS [facility] Last Admin: 10/28/19 22:34 Dose: 100 mg Documented by: Warfarin Sodium (Jantoven) 1 mg PO SuMoWeFr@1700 [facility] Warfarin Sodium (Jantoven) 2 mg PO TuThSa@1700 [facility] Last Admin: 10/28/19 16:52 Dose: 2 mg Documented by: Medical Necessity - Tobacco Use Smoking Status: Never smoker Tobacco Use: Non-smoker Route of nutrition/ use of supplements: [] Nutritional Intake: [] IV Site: [] Giraldo Catheter: [] Left popliteal soft tissue abscess surgical I&D. Operative cultures remain negative today. At this point will be reasonable to transition to oral antibiotics in the form of Augmentin 875 mg twice daily for 2 more weeks.
--- NOTE | 2019-10-29 12:53 | NURSING ---
report called to tcu-
[2019-10-29 12:55] VITALS: BP 108/68; PULSE 60; RESP 18; TEMP 36.7; O2SAT 95
== END 2019-10-29 13:20 | disposition skilled nursing facility (03) | DRG 940 ==
LOC: ACINP 10:04 → MS3 16:05
PROVIDERS: Family Medicine; Nurse Practitioner Family; Admitting Provider Specialist; PCP Family Medicine; Referring Provider Specialist; Visit Provider Internal Medicine
PROC: 0KBR0ZZ Excision of Left Upper Leg Muscle, Open Approach (ICD-10-PCS; principal; 2019-10-27 12:00)
DX: T84.54XD Infection and inflammatory reaction due to internal left knee prosthesis, subsequent encounter (principal); L02.416 Cutaneous abscess of left lower limb; I50.22 Chronic systolic (congestive) heart failure; I11.0 Hypertensive heart disease with heart failure; E78.00 Pure hypercholesterolemia, unspecified; Z95.0 Presence of cardiac pacemaker; Z96.652 Presence of left artificial knee joint; Z95.2 Presence of prosthetic heart valve; I48.0 Paroxysmal atrial fibrillation; Z79.01 Long term (current) use of anticoagulants; Z79.2 Long term (current) use of antibiotics; Z79.899 Other long term (current) drug therapy; N40.0 Benign prostatic hyperplasia without lower urinary tract symptoms; K21.9 Gastro-esophageal reflux disease without esophagitis; Z86.73 Personal history of transient ischemic attack (TIA), and cerebral infarction without residual deficits; Z85.038 Personal history of other malignant neoplasm of large intestine; Z66 Do not resuscitate
CPT/HCPCS: 36415; 36416; 80053; 85025; 85027; 85610; 87015; 87070; 87075; 87077; 87102; 87116; 87186; 87205; 87206; 87635; 94799; 97162; 97166; 99251; J7050; J7120; A4216; G0463; J0295; J2405; U0003

== ENCOUNTER 2019-10-29 13:36 | Inpatient (IN) | payer MEDICARE, SELFPAY ==
[2019-10-27 10:29] VITALS: BMI 25.0
[2019-10-29 13:54] VITALS: BP 118/50; PULSE 60; RESP 17; TEMP 36.8; O2SAT 95; BMI 25.9
--- NOTE | 2019-10-29 14:16 | CASEMGMT ---
Social Work Discussed patient's progress in therapy. Pt confirmed DNR-CCA, no intubation. MOLST form completed and place in chart. Becky Morales, OTR OWNER OPERATOR [employer]
[2019-10-29] MEDS: Pantoprazole Sodium 40 MG Tablet PO (18:16)
[2019-10-29] MEDS: Amox/Clavulanate 875 MG Tablet PO (18:16)
[2019-10-29] MEDS: HYDROcodone Bitartrate/Apap 5/325 Tablet PO (19:40)
[2019-10-29] MEDS: Atorvastatin Calcium 20 MG Tablet PO (19:45)
[2019-10-29] MEDS: traZODone 100 MG Tablet PO (23:33)
[2019-10-30 04:00] VITALS: BP 129/61; PULSE 68; RESP 20; TEMP 37; O2SAT 94
[2019-10-30 06:00] VITALS: PULSE 68
[2019-10-30] MEDS: Lisinopril 2.5 MG Tablet PO (06:00)
[2019-10-30] MEDS: Tamsulosin HCl 0.4 MG Capsule PO (06:00)
[2019-10-30] MEDS: Metoprolol(XL)Succ 25 MG Tablet PO (06:00)
[2019-10-30] MEDS: Furosemide 80 MG Tablet PO (06:00)
[2019-10-30] MEDS: Pantoprazole Sodium 40 MG Tablet PO ×2 (06:00→17:20)
[2019-10-30] MEDS: Menthol/Lanolin/Calamine/Znox 113 GM Tube 1 APPLIC TOPICAL ×2 (06:01→17:21)
[2019-10-30] MEDS: Amiodarone 200 MG Tablet PO (06:01)
[2019-10-30 08:24] LABS: Absolute Lymphocyte Count 0.94 X10^3/uL (0.83-4.51); Absolute Neutrophil Count 4.5 X10^3/uL (2.0-7.7); Basophil# 0.03 X10^3/uL; Basophil% 0.5 % (0-1); Eosinophil# 0.17 X10^3/uL; Eosinophils% 2.8 % (0-5); Hematocrit 36.2 % (40-54); Lymphocyte # 0.94 X10^3/ul (4.0); Lymphocyte % 15.3 % (19-41); Mean Corp Hgb Conc 30.4 g/dL (32-36); Mean Corpuscular Hgb 28.6 pg (27.0-32.0); Mean Corpuscular Volume 94.3 fL (80-94); Monocyte# 0.52 X10^3/uL; Monocyte% 8.5 % (0-10); NRBC Flagged by Analyzer 0 % (0-5); Neutrophil # 4.45 X10^3/uL (2.7-7.7); Neutrophil % 72.6 % (47-70); Platelet Count 143 K/mm3 (150-450); RBC Distribution Width CV 17.1 % (11.6-14.6); RBC Distribution Width SD 58.3 fl (35.1-43.9); Red Blood Count 3.84 M/mm3 (4.6-6.2); White Blood Count 6.1 K/mm3 (4.4-11.0)
[2019-10-30 08:43] LABS: Anion Gap 4 (5-15); BUN 13 mg/dL (7-18); BUN/Creat Ratio 14.4 RATIO (10-20); Calcium,Total 8.1 mg/dL (8.5-10.1); Chloride 102 mmol/L (98-107); EST Glomerular Filtration Rate 85 mL/min (>60); Est Glom Filt Rate - Afr Amer 103 mL/min (>60); Estimated Creatinine Clearance 63.09 ml/min; Glucose 84 mg/dL (74-106); Potassium 3.8 mmol/L (3.5-5.1); Sodium Level 137 mmol/L (136-145)
[2019-10-30 09:09] LABS: International Normalized Ratio 1.7; Prothrombin Time (Protime)PT. 19.9 SECONDS (11.7-14.9)
[2019-10-30] MEDS: Amox/Clavulanate 875 MG Tablet PO ×2 (09:34→17:20)
[2019-10-30] MEDS: Tuberculin,Purif.prot.deriv. 50 TU/ML Vial 5 ML ID (09:37)
[2019-10-30 14:57] VITALS: BP 109/64; PULSE 60; RESP 16; TEMP 36.9; O2SAT 95
[2019-10-30] MEDS: Jantoven 2 MG Tablet PO (17:20)
[2019-10-30] MEDS: Senna/Docusate Sodium 1 Tablet PO (18:34)
[2019-10-30] MEDS: Bisacodyl 10 MG Suppository RECTAL (18:35)
[2019-10-30] MEDS: traZODone 100 MG Tablet PO (23:20)
[2019-10-30] MEDS: Atorvastatin Calcium 20 MG Tablet PO (23:20)
[2019-10-31] MEDS: Polyethylene Glycol 3350 17 GM PACKET PO (05:29)
[2019-10-31] MEDS: Lisinopril 2.5 MG Tablet PO (05:32)
[2019-10-31] MEDS: Furosemide 80 MG Tablet PO (05:32)
[2019-10-31] MEDS: Senna/Docusate Sodium 1 Tablet PO ×2 (05:32→17:26)
[2019-10-31] MEDS: Amiodarone 200 MG Tablet PO (05:32)
[2019-10-31] MEDS: Pantoprazole Sodium 40 MG Tablet PO ×2 (05:32→17:26)
[2019-10-31] MEDS: Tamsulosin HCl 0.4 MG Capsule PO (05:32)
[2019-10-31 05:33] VITALS: PULSE 63
[2019-10-31] MEDS: Menthol/Lanolin/Calamine/Znox 113 GM Tube 1 APPLIC TOPICAL ×2 (05:33→17:27)
[2019-10-31] MEDS: Metoprolol(XL)Succ 25 MG Tablet PO (05:33)
[2019-10-31 05:34] VITALS: BP 116/72; PULSE 63; RESP 16; TEMP 36.6; O2SAT 95
[2019-10-31 06:41] LABS: International Normalized Ratio 1.9; Prothrombin Time (Protime)PT. 21.1 SECONDS (11.7-14.9)
[2019-10-31] MEDS: Amox/Clavulanate 875 MG Tablet PO ×2 (08:27→17:26)
[2019-10-31 11:05] VITALS: RESP 18; O2SAT 94
[2019-10-31 14:04] VITALS: BP 108/59; PULSE 52; RESP 20; TEMP 36.8; O2SAT 96
[2019-10-31] MEDS: Jantoven 2 MG Tablet PO (17:26)
[2019-10-31] MEDS: Atorvastatin Calcium 20 MG Tablet PO (20:38)
--- NOTE | 2019-10-31 21:58 | HP.PCM_ITS ---
Problem List (1) Debility Status: Acute (2) Colon cancer Status: Chronic (3) GERD (gastroesophageal reflux disease) Status: Chronic (4) Hypokalemia Status: Chronic (5) Vitamin D deficiency Status: Chronic (6) Left popliteal fossa abscess Status: Acute (7) CHF (congestive heart failure) Status: Chronic Qualifiers: Comment: Suspect systolic (8) HTN (hypertension) Status: Chronic Qualifiers: (9) HLD (hyperlipidemia) Status: Chronic Qualifiers: (10) PAF (paroxysmal atrial fibrillation) Status: Chronic (11) BPH (benign prostatic hyperplasia) Status: Chronic History of Present Illness Date of Admission: 10/29/19 Chief Complaint: Here for rehabilitation, strengthening, prior to discharge home with . The patient is a 84 year old Male with below past medical history significant for status post left total knee replacement. Patient developed pain, swelling, malodorous drainage from left knee. 10/27/2019 Dr. Haywood performed irrigation, debridement left knee popliteal fossa abscess skin subcutaneous tissue fat fascia and muscle. 10/29/2019 Dr. Askew noted operative cultures negative, transition antibiotics to Augmentin to complete 2 week course. 10/29/2019 Admit to TCU with debility, here for rehabilitation, strengthening, prior to discharge home with . Past Medical History Past Medical History (Chronic Problems): Chronic Problems Valvular heart disease (Chronic) S/P AVR (aortic valve replacement) (Chronic) S/P mitral valve repair (Chronic) CHF (congestive heart failure) (Chronic) Suspect systolic HTN (hypertension) (Chronic) HLD (hyperlipidemia) (Chronic) PAF (paroxysmal atrial fibrillation) (Chronic) BPH (benign prostatic hyperplasia) (Chronic) Colon cancer (Chronic) GERD (gastroesophageal reflux disease) (Chronic) Hypokalemia (Chronic) Vitamin D deficiency (Chronic) Allergies soap Allergy (Verified 10/27/19 10:28) PT UNSURE OF REACTION Home Medications: Ambulatory Orders Medication Instructions Recorded Amiodarone HCl [Cordarone] 200 mg PO DAILY 10/26/19 Cholecalciferol (VIT D3) [Vitamin 1,000 unit PO DAILY 10/26/19 D3] Furosemide [Lasix] 80 mg PO DAILY 10/26/19 Lisinopril [Zestril] 2.5 mg PO DAILY 10/26/19 Metoprolol Succinate [Toprol Xl] 25 mg PO DAILY 10/26/19 Pantoprazole Sodium [Protonix] 40 mg PO BID 10/26/19 Potassium Chloride [Klor-Con M20] 30 meq PO DAILY 10/26/19 Saccharomyces Boulardii [Probiotic] 250 mg PO DAILY 10/26/19 Simvastatin [Zocor] 40 mg PO QHS 10/26/19 Tamsulosin HCl [Flomax] 0.4 mg PO DAILY 10/26/19 Warfarin [Coumadin] 1 mg PO SUMOWEFR 10/26/19 Warfarin [Coumadin] 2 mg PO TUTHSA 10/26/19 traZODone [Desyrel] 100 mg PO QHS 10/26/19 Amoxicillin/Potassium Clav 1 ea PO BIDCM 10/29/19 [Augmentin 875-125 Tablet] Hydrocodone Bitart/Apap 5-325 1 - 2 tab PO Q6H PRN PRN 7 Days 10/29/19 [[place] 5/325] #30 tab Surgical History: appendectomy, herniorrhaphy - Abdominal., pacemaker implantation, total hip arthroplasty - Left., total knee arthroplasty - Left., tonsillectomy, - - Colon cancer resection, liver cyst intervention, aortic valve replacement, left total knee repair, recent left posterior knee abscess I&D. Psychiatric History: No pertinent psych hx Lives: Spouse/ Significant Other Smoking Status: Never smoker Tobacco Use: Non-smoker Alcohol: None Drugs: None - *Family History Maternal History Items: Heart Disease, Hypertension Paternal History Items: Heart Disease Review of Systems Constitutional: Denies: Chills, Fever, Weight Change HEENT: Denies: Head Aches, Sinus Congestion, Sinus Drainage Cardiovascular: Denies: Chest Pain, Palpitations Respiratory: Denies: Cough, Shortness of breath at rest, Sputum production Gastrointestinal: Denies: Abdominal Pain, Nausea, Vomiting Genitourinary: Denies: Dysuria Musculoskeletal: Denies: Joint Pain, Joint Tenderness Skin: Denies: Rash, Wounds Neurological: Denies: Numbness, Tingling, Focal weakness Psychiatric: Denies: Anxiety, Depression, Homicidal Ideations, Suicidal Ideations Hematologic/ Lymphatic: Denies: Easy Bruising, Easy Bleeding VTE Information - Inpt Only VTE Present on Admission: No VTE Mechan Device Prophylaxis: Knee High JAVON Hose VTE Pharm Prophylaxis ordered?: No Reason prophylaxis not ordered:: Treatment Not Indicated Patient Problems: Active and Suspected Problems Debility (Acute) - Physical Exam Vitals/I&O's: Vital Signs Temp Pulse Resp BP Pulse Ox 98.2 F 52 L 20 H 108/59 L 96 10/31/19 14:04 10/31/19 14:04 10/31/19 14:04 10/31/19 14:04 10/31/19 14:04 Oxygen Delivery Method Room Air Weight: 81.76 kg Body Mass Index (BMI) 25.9 Intake and Output for Last 24 Hours 10/29/19 10/30/19 10/31/19 23:59 23:59 23:59 Intake Total 240 / 240 900 / 900 1080 / 1080 Output Total 1974 / 1974 200 / 200 1275 / 1275 Balance -1735 / -1735 700 / 700 -195 / -195 General: Alert, Oriented x3, Cooperative HEENT: Atraumatic, PERRLA, EOMI, Normocephalic Neck: Supple, No JVD, Negative Carotid Bruits Lungs: Clear to auscultation, Normal air movement Cardiovascular: Regular rate, No murmurs Abdomen: Bowel Sounds Present, Soft, Non Tender Extremities: No edema, Capillary Refill Less than 3 Seconds Skin: No rashes, No breakdown Musculoskeletal: No Tenderness to Palpation of Joints or Extremities Neurological: Cranial nerves II-XII grossly intact Psych/Mental Status: Normal Affect, Appropriate Laboratory Results 10/30/19 05:30: COVID-19 (LYNNE) Not Detected 10/31/19 06:05: PT 21.1 H, INR 1.9 Current Medications Hydrocodone Bitart/Acetaminophen ([place] 5mg-325mg) 1 - 2 tablet PO Q6H PRN PRN PRN Reason: Pain Score 1-10/10 Last Admin: 10/29/19 19:40 Dose: 1 tablet Documented by: Amiodarone HCl (Cordarone) 200 mg PO DAILY [facility] Last Admin: 10/31/19 05:32 Dose: 200 mg Documented by: Amoxicillin/Clavulanate Potassium (Augmentin Tablet) 875 mg PO BIDCM [facility] Last Admin: 10/31/19 17:26 Dose: 875 mg Documented by: Atorvastatin Calcium (Lipitor) 20 mg PO QHS [facility] Last Admin: 10/31/19 20:38 Dose: 20 mg Documented by: Bisacodyl (Dulcolax) 10 mg RECTAL DAILY PRN PRN Reason: Constipation Last Admin: 10/30/19 18:35 Dose: 10 mg Documented by: Calamine/Phenol (Calmoseptine Ointment) 1 applic TOPICAL BID [facility]; Protocol Last Admin: 10/31/19 17:27 Dose: 1 applicatio Documented by: Cholecalciferol (Vitamin D (25mcg)) 1,000 unit PO DAILY [facility] Last Admin: 10/31/19 05:32 Dose: 1,000 unit Documented by: Furosemide (Lasix) 80 mg PO DAILY [facility] Last Admin: 10/31/19 05:32 Dose: 80 mg Documented by: Lisinopril (Zestril) 2.5 mg PO DAILY [facility] Last Admin: 10/31/19 05:32 Dose: 2.5 mg Documented by: Metoprolol Succinate (Toprol Xl (Beta Philip)) 25 mg PO DAILY [facility] Last Admin: 10/31/19 05:33 Dose: 25 mg Documented by: Pantoprazole Sodium (Protonix) 40 mg PO BID [facility] Last Admin: 10/31/19 17:26 Dose: 40 mg Documented by: Polyethylene Glycol (Miralax) 17 gm PO DAILY [facility] Last Admin: 10/31/19 05:29 Dose: 17 gm Documented by: Potassium Chloride (K-Dur) 30 meq PO DAILYCM [facility] Last Admin: 10/31/19 08:27 Dose: 30 meq Documented by: Senna/Docusate Sodium (Senokot-S, Skylar-Colace) 1 tablet PO BID [facility] Last Admin: 10/31/19 17:26 Dose: 1 tablet Documented by: Tamsulosin HCl (Flomax) 0.4 mg PO DAILY [facility] Last Admin: 10/31/19 05:32 Dose: 0.4 mg Documented by: Trazodone HCl (Desyrel) 100 mg PO QHS [facility] Last Admin: 10/30/19 23:20 Dose: 100 mg Documented by: Tuberculin PPD (Tubersol, Aplisol, Ppd) 5 tu ID [id number] ONE Stop: 11/06/19 10:01 Warfarin Sodium (Jantoven) 2 mg PO DAILY@1700 [facility] Last Admin: 10/31/19 17:26 Dose: 2 mg Documented by: Assessment/Plan All Active Problems Left popliteal fossa abscess (Acute) Status cardiac pacemaker (Acute) Debility (Acute) 84 year old male with below past medical history significant for left total knee replacement hospitalized for irrigation, debridement left popliteal fossa abscess with Dr. Haywood 10/27/2019, admitted to TCU with debility, here for rehabilitation, strengthening, prior to discharge home with . * Debility - PT/OT. * Pain - Tylenol 1000MG Q6H PRN pain (1-3), Oxycodone 5MG Q4H PRN pain (4-10). * Bowel - Miralax 17GM daily, Senna/colace 1 tablet BID, Dulcolax 10MG [place] daily PRN. * Adult immunization - Administer Prevnar 13, Pneumovax 23, Fluzone as appropriate. * DVT prophylaxis - Not necessary, already on warfarin. * Atrial Fibrillation - Metoprolol succinate 25MG daily, Amiodarone 200MG daily, Warfarin 2MG daily, follow INR. * Left popliteal fossa abscess s/p irrigation, debridement - Augmentin 875MG BID thru 11/11/2019. * Hyperlipidemia - Atorvastatin 20MG QHS. * Vitamin D deficiency - D3 1000IU daily. * Congestive heart failure - Metoprolol succinate 25MG daily, Lisinopril 2.5MG daily, Lasix 80MG daily. * Skin irritation - Calmoseptine BID. * GERD - Pantoprazole 40MG BID. * Hypokalemia - K-Dur 30MEQ daily. * BPH - Tamsulosin 0.4MG daily. * Insomnia - Trazodone 100MG QHS.
[2019-10-31] MEDS: traZODone 100 MG Tablet PO (23:19)
[2019-11-01 05:48] VITALS: BP 119/58; PULSE 61; RESP 18; TEMP 37.1; O2SAT 95
[2019-11-01] MEDS: Amiodarone 200 MG Tablet PO (05:54)
[2019-11-01 05:55] VITALS: BP 119/58; PULSE 61
[2019-11-01] MEDS: Lisinopril 2.5 MG Tablet PO (05:55)
[2019-11-01] MEDS: Tamsulosin HCl 0.4 MG Capsule PO (05:55)
[2019-11-01] MEDS: Furosemide 80 MG Tablet PO (05:55)
[2019-11-01] MEDS: Metoprolol(XL)Succ 25 MG Tablet PO (05:55)
[2019-11-01] MEDS: Pantoprazole Sodium 40 MG Tablet PO ×2 (05:55→17:35)
[2019-11-01] MEDS: Menthol/Lanolin/Calamine/Znox 113 GM Tube 1 APPLIC TOPICAL ×2 (05:57→17:40)
[2019-11-01 05:59] LABS: International Normalized Ratio 2.1; Prothrombin Time (Protime)PT. 22.9 SECONDS (11.7-14.9)
[2019-11-01] MEDS: Amox/Clavulanate 875 MG Tablet PO ×2 (08:44→17:35)
[2019-11-01 13:44] VITALS: BP 87/50; PULSE 60; RESP 14; TEMP 36.8; O2SAT 94
--- NOTE | 2019-11-01 14:12 | PHA.CONS_ITS ---
<RuslanMei M - Last Filed: 11/01/19 14:12> Progress Note - Pharmacy Subjective: TCU ADMISSION Objective: Allergies soap Allergy (Verified 10/27/19 10:28) PT UNSURE OF REACTION Current Medications Generic Name Dose Route Start Last Admin Trade Name Freq PRN Reason Stop Dose Admin Acetaminophen 1,000 mg 10/31/19 22:11 Tylenol PO Q6H PRN PRN Pain Score 1-3/10 Amiodarone HCl 200 mg 10/30/19 06:00 11/01/19 05:54 Cordarone PO 200 mg DAILY ISABELLA Administration Amoxicillin/Clavulanate Potassium 875 mg 10/29/19 17:00 11/01/19 08:44 Augmentin Tablet PO 11/10/19 23:59 875 mg BIDCM ISABELLA Administration Atorvastatin Calcium 20 mg 10/29/19 22:00 10/31/19 20:38 Lipitor PO 20 mg QHS ISABELLA Administration Bisacodyl 10 mg 10/30/19 17:27 10/30/19 18:35 Dulcolax RECTAL 10 mg DAILY PRN Administration Constipation Calamine/Phenol 1 applic 10/30/19 06:00 11/01/19 05:57 Calmoseptine Ointment TOPICAL 1 applicatio BID ISABELLA Administration Protocol Cholecalciferol 1,000 unit 10/30/19 06:00 11/01/19 05:55 Vitamin D (25mcg) PO 1,000 unit DAILY ISABELLA Administration Furosemide 80 mg 10/30/19 06:00 11/01/19 05:55 Lasix PO 80 mg DAILY ISABELLA Administration Lisinopril 2.5 mg 10/30/19 06:00 11/01/19 05:55 Zestril PO 2.5 mg DAILY ISABELLA Administration Metoprolol Succinate 25 mg 10/30/19 06:00 11/01/19 05:55 Toprol Xl (Beta Philip) PO 25 mg DAILY ISABELLA Administration Oxycodone HCl 5 mg 10/31/19 22:12 Oxyir PO Q4H PRN PRN Pain Score 4-10/10 Pantoprazole Sodium 40 mg 10/29/19 18:00 11/01/19 05:55 Protonix PO 40 mg BID ISABELLA Administration Polyethylene Glycol 17 gm 10/31/19 06:00 11/01/19 05:55 Miralax PO Not Given DAILY ISABELLA Potassium Chloride 30 meq 10/30/19 08:00 11/01/19 08:44 K-Dur PO 30 meq DAILYCM ISABELLA Administration Senna/Docusate Sodium 1 tablet 10/30/19 18:00 11/01/19 05:55 Senokot-S, Skylar-Colace PO Not Given BID ISABELLA Tamsulosin HCl 0.4 mg 10/30/19 06:00 11/01/19 05:55 Flomax PO 0.4 mg DAILY ISABELLA Administration Trazodone HCl 100 mg 10/29/19 22:00 10/31/19 23:19 Desyrel PO 100 mg QHS ISABELLA Administration Tuberculin PPD 5 tu 11/06/19 10:00 Tubersol, Aplisol, Ppd ID 11/06/19 10:01 X1 ONE Warfarin Sodium 2 mg 10/31/19 17:00 10/31/19 17:26 Jantoven PO 2 mg DAILY@1700 ISABELLA Administration Problem List Debility (Acute) Colon cancer (Chronic) GERD (gastroesophageal reflux disease) (Chronic) Hypokalemia (Chronic) Vitamin D deficiency (Chronic) Vital Signs Temp Pulse Resp BP Pulse Ox 98.3 F 60 14 87/50 L 94 11/01/19 13:44 11/01/19 13:44 11/01/19 13:44 11/01/19 13:44 11/01/19 13:44 Oxygen Delivery Method Room Air Weight: 81.76 kg Body Mass Index (BMI) 25.9 Sodium 137 mmol/L (136-145) 10/30/19 07:42 Potassium 3.8 mmol/L (3.5-5.1) 10/30/19 07:42 Chloride 102 mmol/L (98-107) 10/30/19 07:42 Carbon Dioxide 31.0 mmol/L (21.0-32.0) 10/30/19 07:42 Anion Gap 4 (5-15) L 10/30/19 07:42 BUN 13 mg/dL (7-18) 10/30/19 07:42 Creatinine 0.90 mg/dL (0.70-1.30) 10/30/19 07:42 Est GFR (MDRD) Af Amer 103 mL/min (>60) 10/30/19 07:42 Est GFR (MDRD) Non-Af 85 mL/min (>60) 10/30/19 07:42 BUN/Creatinine Ratio 14.4 RATIO (10-20) 10/30/19 07:42 Glucose 84 mg/dL (74-106) 10/30/19 07:42 Assessment/Plan: 1. Pain: Tylenol 1000mg PO Q6h PRN Pain 1-3/10, Oxycodone 5mg PO Q4h PRN pain 4- 10/10. Please continue to monitor for S/S increased/decreased pain. 2. Atrial Fibrillation: Toprol XL 25mg PO Daily, Amiodarone 200mg PO Daily, Warfarin 2mg PO Daily. Please continue to monitor BP, pulse, INR, S/S bleeding/bruising. 3. CHF: Toprol XL 25mg PO Daily, Lisinopril 2.5mg PO Daily, Lasix 80mg PO Daily, Lipitor 20mg PO QHS, K-Dur 30mEQ PO Daily. Please continue to monitor fluid status, BP, HR, electrolytes. 4. Abscess; S/P Debridement: Augmentin 875mg PO BID thru 11/11/19. Please continue to monitor renal function, diarrhea, resolution of infection. 5. BPH: Flomax 0.4mg PO Daily. Please continue to monitor for improvement in BPH symptoms. 6. GERD: Protonix 40mg PO BID. Please continue to monitor for clinical improvement in GERD symptoms. Please encourage non-pharmacologic therapies as well when able. 7. Vitamin D Deficiency: Cholecalciferol 1,000 unit PO Daily. Please continue to monitor Vitamin D levels as clinically indicated. Psychotropic Medications: 8. Insomnia: Trazodone 100mg PO QHS. Please consider a GDR by 04/2020 as clinically indicated. Unnecessary Medications: Bowel Regimen: Miralax 17g PO Daily, Senna/Docusate 1 tab PO BID, Dulcolax 10mg OR Daily PRN. Please continue to monitor for increased/decreased bowel movements/diarrhea. Date of Note:: 11/01/19 - Provider Comments Provider responsibility: Provider responsible to enter orders to implement recommendations <Wilber [place]ata [place] - Last Filed: 11/01/19 19:50> Progress Note - Pharmacy Subjective: [] Objective: Allergies soap Allergy (Verified 10/27/19 10:28) PT UNSURE OF REACTION Current Medications Generic Name Dose Route Start Last Admin Trade Name Freq PRN Reason Stop Dose Admin Acetaminophen 1,000 mg 10/31/19 22:11 Tylenol PO Q6H PRN PRN Pain Score 1-3/10 Amiodarone HCl 200 mg 10/30/19 06:00 11/01/19 05:54 Cordarone PO 200 mg DAILY ISABELLA Administration Amoxicillin/Clavulanate Potassium 875 mg 10/29/19 17:00 11/01/19 17:35 Augmentin Tablet PO 11/10/19 23:59 875 mg BIDCM ISABELLA Administration Atorvastatin Calcium 20 mg 10/29/19 22:00 10/31/19 20:38 Lipitor PO 20 mg QHS ISABELLA Administration Bisacodyl 10 mg 10/30/19 17:27 10/30/19 18:35 Dulcolax RECTAL 10 mg DAILY PRN Administration Constipation Calamine/Phenol 1 applic 10/30/19 06:00 11/01/19 17:40 Calmoseptine Ointment TOPICAL 1 applicatio BID [facility] Administration Protocol Cholecalciferol 1,000 unit 10/30/19 06:00 11/01/19 05:55 Vitamin D (25mcg) PO 1,000 unit DAILY [facility] Administration Furosemide 80 mg 10/30/19 06:00 11/01/19 05:55 Lasix PO 80 mg DAILY [facility] Administration Lisinopril 2.5 mg 10/30/19 06:00 11/01/19 05:55 Zestril PO 2.5 mg DAILY [facility] Administration Metoprolol Succinate 25 mg 10/30/19 06:00 11/01/19 05:55 Toprol Xl (Beta Philip) PO 25 mg DAILY [facility] Administration Oxycodone HCl 5 mg 10/31/19 22:12 Oxyir PO Q4H PRN PRN Pain Score 4-10/10 Pantoprazole Sodium 40 mg 10/29/19 18:00 11/01/19 17:35 Protonix PO 40 mg BID [facility] Administration Polyethylene Glycol 17 gm 10/31/19 06:00 11/01/19 05:55 Miralax PO Not Given DAILY [facility] Potassium Chloride 30 meq 10/30/19 08:00 11/01/19 08:44 K-Dur PO 30 meq DAILYCM [facility] Administration Senna/Docusate Sodium 1 tablet 10/30/19 18:00 11/01/19 17:40 Senokot-S, Skylar-Colace PO Not Given BID [facility] Tamsulosin HCl 0.4 mg 10/30/19 06:00 11/01/19 05:55 Flomax PO 0.4 mg DAILY ISABELLA Administration Trazodone HCl 100 mg 10/29/19 22:00 10/31/19 23:19 Desyrel PO 100 mg QHS ISABELLA Administration Tuberculin PPD 5 tu 11/06/19 10:00 Tubersol, Aplisol, Ppd ID 11/06/19 10:01 X1 ONE Warfarin Sodium 2 mg 10/31/19 17:00 11/01/19 17:35 Jantoven PO 2 mg DAILY@1700 ISABELLA Administration Problem List Debility (Acute) Colon cancer (Chronic) GERD (gastroesophageal reflux disease) (Chronic) Hypokalemia (Chronic) Vitamin D deficiency (Chronic) Vital Signs Temp Pulse Resp BP Pulse Ox 98.3 F 60 14 87/50 L 94 11/01/19 13:44 11/01/19 13:44 11/01/19 13:44 11/01/19 13:44 11/01/19 13:44 Oxygen Delivery Method Room Air Weight: 81.76 kg Body Mass Index (BMI) 25.9 Sodium 137 mmol/L (136-145) 10/30/19 07:42 Potassium 3.8 mmol/L (3.5-5.1) 10/30/19 07:42 Chloride 102 mmol/L (98-107) 10/30/19 07:42 Carbon Dioxide 31.0 mmol/L (21.0-32.0) 10/30/19 07:42 Anion Gap 4 (5-15) L 10/30/19 07:42 BUN 13 mg/dL (7-18) 10/30/19 07:42 Creatinine 0.90 mg/dL (0.70-1.30) 10/30/19 07:42 Est GFR (MDRD) Af Amer 103 mL/min (>60) 10/30/19 07:42 Est GFR (MDRD) Non-Af 85 mL/min (>60) 10/30/19 07:42 BUN/Creatinine Ratio 14.4 RATIO (10-20) 10/30/19 07:42 Glucose 84 mg/dL (74-106) 10/30/19 07:42 Assessment/Plan: Psychotropic Medications: Unnecessary Medications: Bowel Regimen: - Provider Comments Provider responsibility: Provider responsible to enter orders to implement recommendations Provider Comments to Recommendations by Pharmacy: Agree
[2019-11-01] MEDS: Jantoven 2 MG Tablet PO (17:35)
[2019-11-01] MEDS: traZODone 100 MG Tablet PO (23:34)
[2019-11-01] MEDS: Atorvastatin Calcium 20 MG Tablet PO (23:34)
[2019-11-02 05:17] VITALS: BP 126/67; PULSE 60; RESP 16; TEMP 36.9; O2SAT 97
[2019-11-02] MEDS: Tamsulosin HCl 0.4 MG Capsule PO (05:18)
[2019-11-02] MEDS: Amiodarone 200 MG Tablet PO (05:18)
[2019-11-02 05:19] VITALS: BP 126/67; PULSE 60
[2019-11-02] MEDS: Lisinopril 2.5 MG Tablet PO (05:19)
[2019-11-02] MEDS: Metoprolol(XL)Succ 25 MG Tablet PO (05:19)
[2019-11-02] MEDS: Pantoprazole Sodium 40 MG Tablet PO ×2 (05:19→17:36)
[2019-11-02] MEDS: Furosemide 80 MG Tablet PO (05:19)
[2019-11-02] MEDS: Menthol/Lanolin/Calamine/Znox 113 GM Tube 1 APPLIC TOPICAL ×2 (05:23→17:38)
[2019-11-02 06:21] LABS: International Normalized Ratio 2.3; Prothrombin Time (Protime)PT. 24.5 SECONDS (11.7-14.9)
[2019-11-02] MEDS: Amox/Clavulanate 875 MG Tablet PO ×2 (09:10→17:36)
--- NOTE | 2019-11-02 10:19 | NURSING ---
wound photo: left posterior knee
[2019-11-02 13:30] VITALS: BP 114/66; PULSE 61; RESP 16; TEMP 36.9; O2SAT 96
[2019-11-02] MEDS: Jantoven 2 MG Tablet PO (17:36)
[2019-11-02] MEDS: Atorvastatin Calcium 20 MG Tablet PO (23:38)
[2019-11-02] MEDS: traZODone 100 MG Tablet PO (23:38)
[2019-11-03 05:07] VITALS: BP 128/71; PULSE 61; RESP 16; TEMP 37.1; O2SAT 98
[2019-11-03 05:08] VITALS: BP 128/71; PULSE 61
[2019-11-03] MEDS: Lisinopril 2.5 MG Tablet PO (05:08)
[2019-11-03] MEDS: Tamsulosin HCl 0.4 MG Capsule PO (05:08)
[2019-11-03] MEDS: Metoprolol(XL)Succ 25 MG Tablet PO (05:08)
[2019-11-03] MEDS: Amiodarone 200 MG Tablet PO (05:08)
[2019-11-03] MEDS: Pantoprazole Sodium 40 MG Tablet PO ×2 (05:08→17:05)
[2019-11-03] MEDS: Furosemide 80 MG Tablet PO (05:09)
[2019-11-03] MEDS: Menthol/Lanolin/Calamine/Znox 113 GM Tube 1 APPLIC TOPICAL ×2 (05:11→17:06)
[2019-11-03 06:00] LABS: International Normalized Ratio 2.7; Prothrombin Time (Protime)PT. 28.2 SECONDS (11.7-14.9)
[2019-11-03] MEDS: Amox/Clavulanate 875 MG Tablet PO ×2 (08:05→17:06)
--- NOTE | 2019-11-03 10:33 | CASEMGMT ---
PHQ9 and BIMS interviews completed on this date for MDS assessment. FRANCIE Kyle
[2019-11-03 13:41] VITALS: BP 99/51; PULSE 60; RESP 14; TEMP 36.7; O2SAT 97
--- NOTE | 2019-11-03 13:52 | CASEMGMT ---
Social Work IDT met with patient and via conference call for care plan meeting. Discussed patient's progress in therapy. Pt is modA for bed mobility, Krista to ambulate 20 ft with FWW, Krista for sit to stands and transfers with FWW. Pt is maxA for bathing, toileting and LE dressing, min for UE dressing, toilet transfers CGA. Pt is on a heart healthy diet, low in vitamin K, bite size pieces, receiving magic cup, and receiving dominga cup ice cream. Pt is out of isolation 11/11, has wound vac and has f/u appt 11/03. Explained [employer] insurance with [employer] 11/04, approved until 11/06. The goal is for pt to return to [facility] with . [facility] is not allowing [facility] in at this time due to COVID; therefore, pt must be physically and medically capable to return. Will continue to follow. Becky Morales, FELICITAS MATH INTERVENTIONIST
[2019-11-03] MEDS: Jantoven 2 MG Tablet PO (17:05)
[2019-11-03] MEDS: Senna/Docusate Sodium 1 Tablet PO (17:05)
[2019-11-03] MEDS: Juven (unflavored) Packet 1 PACKET PO (17:05)
[2019-11-03] MEDS: traZODone 100 MG Tablet PO (23:34)
[2019-11-03] MEDS: Atorvastatin Calcium 20 MG Tablet PO (23:34)
[2019-11-04 06:16] VITALS: BP 133/67; PULSE 68
[2019-11-04] MEDS: Metoprolol(XL)Succ 25 MG Tablet PO (06:16)
[2019-11-04] MEDS: Lisinopril 2.5 MG Tablet PO (06:16)
[2019-11-04] MEDS: Amiodarone 200 MG Tablet PO (06:16)
[2019-11-04] MEDS: Tamsulosin HCl 0.4 MG Capsule PO (06:16)
[2019-11-04] MEDS: Furosemide 80 MG Tablet PO (06:16)
[2019-11-04] MEDS: Pantoprazole Sodium 40 MG Tablet PO ×2 (06:16→16:58)
[2019-11-04] MEDS: Menthol/Lanolin/Calamine/Znox 113 GM Tube 1 APPLIC TOPICAL ×2 (06:18→17:00)
[2019-11-04 06:20] VITALS: RESP 17; TEMP 36.6; O2SAT 97
[2019-11-04] MEDS: Juven (unflavored) Packet 1 PACKET PO ×2 (08:14→16:58)
[2019-11-04] MEDS: Amox/Clavulanate 875 MG Tablet PO ×2 (08:15→16:58)
[2019-11-04 11:18] VITALS: PULSE 60; RESP 18; O2SAT 99
--- NOTE | 2019-11-04 12:43 | CASEMGMT ---
Addendum entered by Becky Morales 11/04/19 15:43: Spoke with zina Galindo, at [facility]. They are not up-to-date on wound care/wound vacs and they are not allowing [facility] nursing in at this time. Physically the patient would need to be as independent as possible as the was mostly assisting - therefore, standing, ambulating and transfers SBA to return. Original Note: Social Work Left message with [facility] to inquire about pt return with wound vac. Becky Morales, HOOP RIVETER CERTIFIED ORTHOTIC FITTER
[2019-11-04 13:49] VITALS: BP 106/61; PULSE 59; RESP 14; TEMP 36.5; O2SAT 97
[2019-11-04] MEDS: Jantoven 2 MG Tablet PO (16:58)
--- NOTE | 2019-11-04 18:15 | NURSING ---
pt had appt with Dr Haywood today, returned with no new orders.
[2019-11-04] MEDS: traZODone 100 MG Tablet PO (23:24)
[2019-11-04] MEDS: Atorvastatin Calcium 20 MG Tablet PO (23:24)
[2019-11-05 06:09] VITALS: BP 121/66; PULSE 63
[2019-11-05] MEDS: Pantoprazole Sodium 40 MG Tablet PO ×2 (06:09→17:27)
[2019-11-05] MEDS: Metoprolol(XL)Succ 25 MG Tablet PO (06:09)
[2019-11-05] MEDS: Lisinopril 2.5 MG Tablet PO (06:09)
[2019-11-05] MEDS: Furosemide 80 MG Tablet PO (06:09)
[2019-11-05] MEDS: Tamsulosin HCl 0.4 MG Capsule PO (06:09)
[2019-11-05] MEDS: Amiodarone 200 MG Tablet PO (06:09)
[2019-11-05] MEDS: Menthol/Lanolin/Calamine/Znox 113 GM Tube 1 APPLIC TOPICAL ×2 (06:11→17:27)
[2019-11-05 06:34] VITALS: RESP 17; TEMP 36.9; O2SAT 97
[2019-11-05] MEDS: Juven (unflavored) Packet 1 PACKET PO ×2 (07:50→17:27)
[2019-11-05] MEDS: Amox/Clavulanate 875 MG Tablet PO ×2 (07:50→17:27)
[2019-11-05] MEDS: FLUoxetine 10 MG Capsule PO (07:51)
[2019-11-05 15:07] VITALS: BP 117/57; PULSE 61; RESP 16; TEMP 36.3; O2SAT 97
[2019-11-05] MEDS: Jantoven 2 MG Tablet PO (17:27)
[2019-11-05] MEDS: Atorvastatin Calcium 20 MG Tablet PO (21:12)
[2019-11-05] MEDS: traZODone 100 MG Tablet PO (23:44)
[2019-11-06 04:00] VITALS: BP 111/63; PULSE 63; RESP 16; TEMP 36.7; O2SAT 96
[2019-11-06 05:42] VITALS: BP 111/63; PULSE 63
[2019-11-06] MEDS: Amiodarone 200 MG Tablet PO (05:42)
[2019-11-06] MEDS: FLUoxetine 10 MG Capsule PO (05:42)
[2019-11-06] MEDS: Metoprolol(XL)Succ 25 MG Tablet PO (05:42)
[2019-11-06] MEDS: Furosemide 80 MG Tablet PO (05:42)
[2019-11-06] MEDS: Tamsulosin HCl 0.4 MG Capsule PO (05:42)
[2019-11-06] MEDS: Lisinopril 2.5 MG Tablet PO (05:42)
[2019-11-06] MEDS: Menthol/Lanolin/Calamine/Znox 113 GM Tube 1 APPLIC TOPICAL ×2 (05:42→18:08)
[2019-11-06] MEDS: Pantoprazole Sodium 40 MG Tablet PO ×2 (05:42→18:07)
[2019-11-06] MEDS: Amox/Clavulanate 875 MG Tablet PO ×2 (08:31→18:08)
[2019-11-06] MEDS: Juven (unflavored) Packet 1 PACKET PO ×2 (08:31→18:07)
[2019-11-06 08:36] LABS: Absolute Lymphocyte Count 0.93 X10^3/uL (0.83-4.51); Absolute Neutrophil Count 4.2 X10^3/uL (2.0-7.7); Basophil# 0.03 X10^3/uL; Basophil% 0.5 % (0-1); Eosinophils% 3.4 % (0-5); Hematocrit 38.1 % (40-54); Hemoglobin 11.7 g/dL (13.0-16.5); Lymphocyte # 0.93 X10^3/ul (4.0); Lymphocyte % 15.7 % (19-41); Mean Corp Hgb Conc 30.7 g/dL (32-36); Mean Corpuscular Hgb 28.5 pg (27.0-32.0); Mean Corpuscular Volume 92.9 fL (80-94); Monocyte# 0.49 X10^3/uL; Monocyte% 8.3 % (0-10); NRBC Flagged by Analyzer 0 % (0-5); Neutrophil # 4.24 X10^3/uL (2.7-7.7); Neutrophil % 71.4 % (47-70); Platelet Count 185 K/mm3 (150-450); RBC Distribution Width CV 16.7 % (11.6-14.6); RBC Distribution Width SD 57.3 fl (35.1-43.9); White Blood Count 5.9 K/mm3 (4.4-11.0)
[2019-11-06 08:56] LABS: Anion Gap 7 (5-15); BUN 25 mg/dL (7-18); BUN/Creat Ratio 24.8 RATIO (10-20); Calcium,Total 8.5 mg/dL (8.5-10.1); Chloride 104 mmol/L (98-107); Creatinine, Serum 1.01 mg/dL (0.70-1.30); EST Glomerular Filtration Rate 75 mL/min (>60); Est Glom Filt Rate - Afr Amer 91 mL/min (>60); Estimated Creatinine Clearance 56.22 ml/min; Glucose 86 mg/dL (74-106); Sodium Level 139 mmol/L (136-145)
[2019-11-06] MEDS: Tuberculin,Purif.prot.deriv. 50 TU/ML Vial 5 ML ID (11:16)
[2019-11-06 13:38] VITALS: BP 91/54; PULSE 93; RESP 17; TEMP 36.5; O2SAT 97
[2019-11-06] MEDS: Jantoven 2 MG Tablet PO (18:07)
[2019-11-06] MEDS: Atorvastatin Calcium 20 MG Tablet PO (23:29)
[2019-11-06] MEDS: traZODone 100 MG Tablet PO (23:29)
[2019-11-07 04:00] VITALS: BP 122/68; PULSE 60; RESP 16; TEMP 36.7; O2SAT 98
[2019-11-07 05:35] VITALS: BP 122/68; PULSE 60
[2019-11-07] MEDS: Pantoprazole Sodium 40 MG Tablet PO ×2 (05:35→17:08)
[2019-11-07] MEDS: Amiodarone 200 MG Tablet PO (05:35)
[2019-11-07] MEDS: Metoprolol(XL)Succ 25 MG Tablet PO (05:35)
[2019-11-07] MEDS: Lisinopril 2.5 MG Tablet PO (05:35)
[2019-11-07] MEDS: Tamsulosin HCl 0.4 MG Capsule PO (05:35)
[2019-11-07] MEDS: Furosemide 80 MG Tablet PO (05:35)
[2019-11-07] MEDS: Menthol/Lanolin/Calamine/Znox 113 GM Tube 1 APPLIC TOPICAL ×2 (05:38→17:09)
[2019-11-07] MEDS: Juven (unflavored) Packet 1 PACKET PO ×2 (08:27→17:08)
[2019-11-07] MEDS: Amox/Clavulanate 875 MG Tablet PO ×2 (08:27→17:08)
[2019-11-07 10:00] VITALS: PULSE 60; RESP 20
[2019-11-07 13:44] VITALS: BP 91/52; PULSE 64; RESP 17; TEMP 36.8; O2SAT 98
[2019-11-07] MEDS: Jantoven 2 MG Tablet PO (17:08)
[2019-11-07] MEDS: traZODone 100 MG Tablet PO (23:21)
[2019-11-07] MEDS: Atorvastatin Calcium 20 MG Tablet PO (23:21)
[2019-11-08 05:25] VITALS: BP 120/65; PULSE 64; RESP 18; TEMP 36.8; O2SAT 97
[2019-11-08 05:26] VITALS: PULSE 64
[2019-11-08] MEDS: Menthol/Lanolin/Calamine/Znox 113 GM Tube 1 APPLIC TOPICAL ×2 (05:26→17:19)
[2019-11-08] MEDS: Amiodarone 200 MG Tablet PO (05:26)
[2019-11-08] MEDS: Tamsulosin HCl 0.4 MG Capsule PO (05:26)
[2019-11-08] MEDS: Lisinopril 2.5 MG Tablet PO (05:26)
[2019-11-08] MEDS: Metoprolol(XL)Succ 25 MG Tablet PO (05:26)
[2019-11-08] MEDS: Pantoprazole Sodium 40 MG Tablet PO ×2 (05:26→17:15)
[2019-11-08] MEDS: FLUoxetine 10 MG Capsule PO (05:26)
[2019-11-08] MEDS: Furosemide 80 MG Tablet PO (05:26)
[2019-11-08] MEDS: Amox/Clavulanate 875 MG Tablet PO ×2 (08:07→17:15)
[2019-11-08] MEDS: Juven (unflavored) Packet 1 PACKET PO ×2 (08:07→17:15)
--- NOTE | 2019-11-08 15:03 | NURSING ---
Wound vac dressing change per orders, pt tolerated well.
[2019-11-08 15:17] VITALS: BP 98/52; PULSE 61; RESP 16; TEMP 36.3; O2SAT 98
[2019-11-08] MEDS: Senna/Docusate Sodium 1 Tablet PO (17:15)
[2019-11-08] MEDS: Jantoven 2 MG Tablet PO (17:15)
[2019-11-08] MEDS: traZODone 100 MG Tablet PO (23:38)
[2019-11-08] MEDS: Atorvastatin Calcium 20 MG Tablet PO (23:38)
[2019-11-09 05:28] VITALS: BP 123/55; PULSE 63
[2019-11-09] MEDS: Tamsulosin HCl 0.4 MG Capsule PO (05:28)
[2019-11-09] MEDS: Pantoprazole Sodium 40 MG Tablet PO ×2 (05:28→17:15)
[2019-11-09] MEDS: Amiodarone 200 MG Tablet PO (05:28)
[2019-11-09] MEDS: Metoprolol(XL)Succ 25 MG Tablet PO (05:28)
[2019-11-09] MEDS: Menthol/Lanolin/Calamine/Znox 113 GM Tube 1 APPLIC TOPICAL ×2 (05:28→17:15)
[2019-11-09] MEDS: FLUoxetine 10 MG Capsule PO (05:28)
[2019-11-09] MEDS: Furosemide 80 MG Tablet PO (05:28)
[2019-11-09] MEDS: Lisinopril 2.5 MG Tablet PO (05:28)
[2019-11-09 05:30] VITALS: RESP 17; TEMP 36.9; O2SAT 95
[2019-11-09] MEDS: Juven (unflavored) Packet 1 PACKET PO ×2 (09:08→17:15)
[2019-11-09] MEDS: Amox/Clavulanate 875 MG Tablet PO ×2 (09:08→17:15)
[2019-11-09 14:00] VITALS: BP 117/77; PULSE 61; RESP 18; TEMP 36.7; O2SAT 98
[2019-11-09 14:04] VITALS: PULSE 60; RESP 18; O2SAT 98
[2019-11-09] MEDS: Jantoven 2 MG Tablet PO (17:15)
[2019-11-09] MEDS: traZODone 100 MG Tablet PO (23:43)
[2019-11-09] MEDS: Atorvastatin Calcium 20 MG Tablet PO (23:44)
[2019-11-10 06:02] LABS: International Normalized Ratio 3.6
[2019-11-10 06:06] VITALS: BP 119/74; PULSE 62
[2019-11-10] MEDS: Lisinopril 2.5 MG Tablet PO (06:06)
[2019-11-10] MEDS: Pantoprazole Sodium 40 MG Tablet PO ×2 (06:06→17:10)
[2019-11-10] MEDS: Metoprolol(XL)Succ 25 MG Tablet PO (06:06)
[2019-11-10] MEDS: FLUoxetine 10 MG Capsule PO (06:06)
[2019-11-10] MEDS: Amiodarone 200 MG Tablet PO (06:07)
[2019-11-10] MEDS: Tamsulosin HCl 0.4 MG Capsule PO (06:07)
[2019-11-10] MEDS: Furosemide 80 MG Tablet PO (06:07)
[2019-11-10 06:09] VITALS: RESP 18; TEMP 36.9; O2SAT 95
[2019-11-10] MEDS: Menthol/Lanolin/Calamine/Znox 113 GM Tube 1 APPLIC TOPICAL ×2 (06:09→17:12)
[2019-11-10 06:10] LABS: Prothrombin Time (Protime)PT. 35.4 SECONDS (11.7-14.9)
[2019-11-10] MEDS: Amox/Clavulanate 875 MG Tablet PO ×2 (07:49→17:11)
[2019-11-10] MEDS: Juven (unflavored) Packet 1 PACKET PO ×2 (07:49→17:10)
[2019-11-10 13:47] VITALS: BP 100/60; PULSE 73; RESP 18; TEMP 36.8; O2SAT 96
--- NOTE | 2019-11-10 14:47 | NURSING ---
wound photo: left posterior knee
--- NOTE | 2019-11-10 15:52 | CASEMGMT ---
Social Work Pt requesting to DC home. Spoke with wound nurse whom states the wound vac can be removed 11/11 and go to a dressing once daily. Contacted [facility] to inquire if they can complete that dressing change - they can as long as supplies are sent with pt - which they will be. Spoke with pt about DC 11/13 - pt agreeable. No needs. Plan: DC home with to [facility] 11/13, no needs Becky Morales, OILER HELPER ONE PIECE EXPANSION MAKER HAND
--- NOTE | 2019-11-10 20:59 | DCINST_ITS ---
- Discharge Diagnoses Current Active Problems: Current Active and Chronic Problems Debility (Acute) Colon cancer (Chronic) GERD (gastroesophageal reflux disease) (Chronic) Hypokalemia (Chronic) Vitamin D deficiency (Chronic) You will use the following diet at home:: No restrictions, Regular Your food should be the consistency of: Regular Your liquids should be the consistency of: Regular/Thin Discharge Activity: Return to Normal Activity, May Shower, Use Walker Weight Bearing Status: Weight bearing as tolerated Call your doctor if you observe: Fever of 101 or Higher, Inability to urinate, Inability to have a bowel movement, Shortness of breath, Chest pain, Uncontrolled pain Allergies/Adverse Reactions: Allergies soap Allergy (Verified 10/27/19 10:28) PT UNSURE OF REACTION Medications to take at Discharge Amiodarone HCl [Cordarone] 200 mg PO DAILY 10/26/19 Cholecalciferol (VIT D3) [Vitamin D3] 1,000 unit PO DAILY 10/26/19 Furosemide [Lasix] 80 mg PO DAILY 10/26/19 Lisinopril [Zestril] 2.5 mg PO DAILY 10/26/19 Metoprolol Succinate [Toprol Xl] 25 mg PO DAILY 10/26/19 Pantoprazole Sodium [Protonix] 40 mg PO BID 10/26/19 Potassium Chloride [Klor-Con M20] 30 meq PO DAILY 10/26/19 Simvastatin [Zocor] 40 mg PO QHS 10/26/19 Tamsulosin HCl [Flomax] 0.4 mg PO DAILY 10/26/19 Warfarin [Coumadin] 2 mg PO TUTHSA 10/26/19 traZODone [Desyrel] 100 mg PO QHS 10/26/19 Acetaminophen [Tylenol] 1,000 mg PO Q6H PRN PRN tablet 11/10/19 Fluoxetine [Prozac] 10 mg PO DAILY #30 cap 11/10/19 Julián (unflavored) [Julián Packet] 1 packet PO BIDCM #60 packet 11/10/19 Menthol/Lanolin/Calamine/Znox [Calmoseptine Ointment] 1 applic TOPICAL BID tube 11/10/19 The following prescriptions were given: Julián (unflavored) [Julián Packet] 1 packet PO BIDCM #60 packet Prescription Printed Fluoxetine [Prozac] 10 mg PO DAILY #30 cap Prescription Printed Primary Care Physician: Benjamin Fabian MD [Primary Care Provider] - Please follow up with your Primary Care Physician in: 1 week. Test Results: Test results from this visit will be discussed in further detail at your follow- up appointment, if applicable. Please Follow Up With: Radames Haywood MD When: one week after discharge from TCU Proposed Discharge Date: 11/14/19
--- NOTE | 2019-11-10 21:00 | DS.PCM_ITS ---
Discharge Date and Diagnosis - Problem List Patient Problems: Active and Suspected Problems Debility (Acute) Date of Admission: 10/29/19 Date of Discharge: 11/14/19 - Primary Discharge Diagnosis Acute Problems: Active Problems Debility (Acute) - Secondary Discharge Diagnosis Chronic Problems: Chronic Problems Valvular heart disease (Chronic) S/P AVR (aortic valve replacement) (Chronic) S/P mitral valve repair (Chronic) CHF (congestive heart failure) (Chronic) Suspect systolic HTN (hypertension) (Chronic) HLD (hyperlipidemia) (Chronic) PAF (paroxysmal atrial fibrillation) (Chronic) BPH (benign prostatic hyperplasia) (Chronic) Colon cancer (Chronic) GERD (gastroesophageal reflux disease) (Chronic) Hypokalemia (Chronic) Vitamin D deficiency (Chronic) Hospital Course and Treatment Imaging Results: 10/29/19 14:14 Diet: Cardiac - Heart Healthy Food consistency:: Regular Liquid Consistency:: Regular/Thin Type of Dietary Supplement:: Magic Cup Dessert Diet Comments: low vitamin K, pt on coumadin Labs (Last 48 Hours) 11/10/19 05:15 PT 35.4 H INR 3.6 H* Consultations 10/29/19 14:11 Consult: Onc/Wound/drapery hand Routine Comment: Operations: None Procedures: None Summary of Care Provided: The patient is a 84 year old Male with below past medical history significant for left total knee replacement hospitalized for irrigation, debridement left popliteal fossa abscess with Dr. Haywood 10/27/2019, admitted to TCU with debility, here for rehabilitation, strengthening, prior to discharge home with . Fluoxetine 10MG daily added for depression. Discharge home with to [facility], No needs. Patient Problems: Active and Suspected Problems Debility (Acute) - Physical Exam Vitals/I&O's: Vital Signs Temp Pulse Resp BP Pulse Ox 98.2 F 73 18 100/60 96 11/10/19 13:47 11/10/19 13:47 11/10/19 13:47 11/10/19 13:47 11/10/19 13:47 Oxygen Delivery Method Room Air Weight: 74.389 kg Body Mass Index (BMI) 25.9 Intake and Output for Last 24 Hours 11/08/19 11/09/19 11/10/19 23:59 23:59 23:59 Intake Total 960 / 960 600 / 600 600 / 600 Balance 960 / 960 600 / 600 600 / 600 Laboratory Results 11/10/19 05:15: PT 35.4 H, INR 3.6 H* Current Medications Acetaminophen (Tylenol) 1,000 mg PO Q6H PRN PRN PRN Reason: Pain Score 1-3/10 Amiodarone HCl (Cordarone) 200 mg PO DAILY [facility] Last Admin: 11/10/19 06:07 Dose: 200 mg Documented by: Amoxicillin/Clavulanate [facility] ([facility] Stop: 11/10/19 23:59 Last Admin: 11/10/19 17:11 Dose: 875 mg Documented by: Atorvastatin Calcium (Lipitor) 20 mg PO QHS [facility] Last Admin: 11/09/19 23:44 Dose: 20 mg Documented by: Bisacodyl (Dulcolax) 10 mg RECTAL DAILY PRN PRN Reason: Constipation Last Admin: 10/30/19 18:35 Dose: 10 mg Documented by: Calamine/Phenol (Calmoseptine Ointment) 1 applic TOPICAL BID [facility]; Protocol Last Admin: 11/10/19 17:12 Dose: 1 applicatio Documented by: Cholecalciferol (Vitamin D (25mcg)) 1,000 unit PO DAILY [facility] Last Admin: 11/10/19 06:06 Dose: 1,000 unit Documented by: Fluoxetine HCl (Prozac) 10 mg PO DAILY [facility] Last Admin: 11/10/19 06:06 Dose: 10 mg Documented by: Furosemide (Lasix) 80 mg PO DAILY [facility] Last Admin: 11/10/19 06:07 Dose: 80 mg Documented by: Lisinopril (Zestril) 2.5 mg PO DAILY [facility] Last Admin: 11/10/19 06:06 Dose: 2.5 mg Documented by: Metoprolol Succinate (Toprol Xl (Beta Philip)) 25 mg PO DAILY [facility] Last Admin: 11/10/19 06:06 Dose: 25 mg Documented by: Oxycodone HCl (Oxyir) 5 mg PO Q4H PRN PRN PRN Reason: Pain Score 4-10/10 Pantoprazole Sodium (Protonix) 40 mg PO BID [facility] Last Admin: 11/10/19 17:10 Dose: 40 mg Documented by: Polyethylene Glycol (Miralax) 17 gm PO DAILY [facility] Last Admin: 11/10/19 06:08 Dose: Not Given Documented by: Potassium Chloride (K-Dur) 30 meq PO DAILYCM [facility] Last Admin: 11/10/19 07:49 Dose: 30 meq Documented by: Senna/Docusate Sodium (Senokot-S, Skylar-Colace) 1 tablet PO BID [facility] Last Admin: 11/10/19 17:09 Dose: Not Given Documented by: Tamsulosin HCl (Flomax) 0.4 mg PO DAILY [facility] Last Admin: 11/10/19 06:07 Dose: 0.4 mg Documented by: Trazodone HCl (Desyrel) 100 mg PO QHS [facility] Last Admin: 11/09/19 23:43 Dose: 100 mg Documented by: Warfarin Sodium (Jantoven) 1 mg PO DAILY@1700 [facility] Last Admin: 11/10/19 17:10 Dose: 1 mg Documented by: Discharge Diet: No Restrictions Discharge Activity: Return to Normal Activity, May Shower, Use Walker Weight Bearing Status: Weight bearing as tolerated Call your doctor if you observe: Fever of 101 or Higher, Inability to urinate, Inability to have a bowel movement, Shortness of breath, Chest pain, Uncontrolled pain Home Medications: Medications to take at Discharge Amiodarone HCl [Cordarone] 200 mg PO DAILY 10/26/19 Cholecalciferol (VIT D3) [Vitamin D3] 1,000 unit PO DAILY 10/26/19 Furosemide [Lasix] 80 mg PO DAILY 10/26/19 Lisinopril [Zestril] 2.5 mg PO DAILY 10/26/19 Metoprolol Succinate [Toprol Xl] 25 mg PO DAILY 10/26/19 Pantoprazole Sodium [Protonix] 40 mg PO BID 10/26/19 Potassium Chloride [Klor-Con M20] 30 meq PO DAILY 10/26/19 Simvastatin [Zocor] 40 mg PO QHS 10/26/19 Tamsulosin HCl [Flomax] 0.4 mg PO DAILY 10/26/19 Warfarin [Coumadin] 2 mg PO TUTHSA 10/26/19 traZODone [Desyrel] 100 mg PO QHS 10/26/19 Acetaminophen [Tylenol] 1,000 mg PO Q6H PRN PRN tablet 11/10/19 Fluoxetine [Prozac] 10 mg PO DAILY #30 cap 11/10/19 Julián (unflavored) [Julián Packet] 1 packet PO BIDCM #60 packet 11/10/19 Menthol/Lanolin/Calamine/Znox [Calmoseptine Ointment] 1 applic TOPICAL BID tube 11/10/19 Following Prescriptions Were Given to Patient: Julián (unflavored) [Julián Packet] 1 packet PO BIDCM #60 packet Prescription Printed Fluoxetine [Prozac] 10 mg PO DAILY #30 cap Prescription Printed Primary Care Physician: Benjamin Fabian MD [Primary Care Provider] - Please follow up with your Primary Care Physician in: 1 week. Please Follow Up With: Radames Haywood MD When: one week after discharge from TCU Disposition: Asstd Living/Non-Skill NH Minutes spent on discharge:: 35 Patient Condition:: Stable Medical Necessity - Tobacco Use Smoking Status: Never smoker Tobacco Use: Non-smoker Meaningful Use Info Meaningful Use Diagnoses (Choose all that apply): None applicable
--- NOTE | 2019-11-10 21:03 | TREXTCAR_ITS ---
- Diet 10/29/19 14:14 Diet: Cardiac - Heart Healthy Food consistency:: Regular Liquid Consistency:: Regular/Thin Type of Dietary Supplement:: Magic Cup Dessert Diet Comments: low vitamin K, pt on coumadin - Routine Orders/Code Status Code Status: [facility] - No intubation. - Wound(s) Back of L ear Wound Type: scab 3rd R toe Wound Type: scab Left side of head Wound Type: scab BIANCA Wound Type: Skin Tear Dressing Change: Dry Sterile Dressing L hand Wound Type: Skin Tear Dressing Change: Dry Sterile Dressing Left FA Wound Type: Abrasion Dressing Change: Dry Sterile Dressing left posterior knee Wound Type: Open Surgical Wound Dressing Change: KCI wound VAC Rt buttocks Wound Type: shearng Dressing Change: jose Left achilles Wound Type: shearing from immobilizer Dressing Change: mepilex 11/04 - Therapies Weight Bearing: Weight bearing as tolerated Extremity Affected:: Bilateral Lower - Problem/Diagnosis (1) Debility Status: Acute Current Visit: Yes (2) Colon cancer Status: Chronic Current Visit: Yes (3) GERD (gastroesophageal reflux disease) Status: Chronic Current Visit: Yes (4) Hypokalemia Status: Chronic Current Visit: Yes (5) Vitamin D deficiency Status: Chronic Current Visit: Yes (6) Left popliteal fossa abscess Status: Acute Current Visit: No (7) CHF (congestive heart failure) Status: Chronic Comment: Suspect systolic Current Visit: No (8) HTN (hypertension) Status: Chronic Current Visit: No (9) HLD (hyperlipidemia) Status: Chronic Current Visit: No (10) PAF (paroxysmal atrial fibrillation) Status: Chronic Current Visit: No (11) BPH (benign prostatic hyperplasia) Status: Chronic Current Visit: No - Allergies/Procedures Done in Hospital Allergies/Adverse Reactions: Allergies soap Allergy (Verified 10/27/19 10:28) PT UNSURE OF REACTION - Type of Care/Length of Stay Estimated LOS: More Than 30 Days Type of Care Needed: Senior Living/Assisted Living Rehab Potential: Fair Prognosis: Fair - Additional Orders/Day of Discharge Day of Discharge: 11/14/19 - Dietary and Speech Recommendations Dietitian Recommendations/Changes: Continue current diet as ordered. Please use same scale for better accuracy in weighing res. Will continue Julián bid to help w/ surgical incision healing of L knee. Rec consider ONS w/ medpass if wt loss continues. - Follow Up Care Primary Care Physician: Benjamin Fabian MD [Primary Care Provider] - Please follow up with your Primary Care Physician in: 1 week. Please Follow Up With: Radames Haywood MD When: one week after discharge from TCU
[2019-11-10] MEDS: Atorvastatin Calcium 20 MG Tablet PO (23:47)
[2019-11-10] MEDS: traZODone 100 MG Tablet PO (23:48)
[2019-11-11 04:00] VITALS: BP 118/66; PULSE 65; RESP 16; TEMP 36.5; O2SAT 96
[2019-11-11 05:17] VITALS: BP 118/66; PULSE 65
[2019-11-11] MEDS: Metoprolol(XL)Succ 25 MG Tablet PO (05:17)
[2019-11-11] MEDS: Tamsulosin HCl 0.4 MG Capsule PO (05:17)
[2019-11-11] MEDS: Lisinopril 2.5 MG Tablet PO (05:17)
[2019-11-11] MEDS: Amiodarone 200 MG Tablet PO (05:17)
[2019-11-11] MEDS: Furosemide 80 MG Tablet PO (05:17)
[2019-11-11] MEDS: FLUoxetine 10 MG Capsule PO (05:17)
[2019-11-11] MEDS: Pantoprazole Sodium 40 MG Tablet PO ×2 (05:17→17:12)
[2019-11-11] MEDS: Menthol/Lanolin/Calamine/Znox 113 GM Tube 1 APPLIC TOPICAL ×2 (05:19→17:12)
[2019-11-11 06:13] LABS: Prothrombin Time (Protime)PT. 39.2 SECONDS (11.7-14.9)
[2019-11-11] MEDS: Juven (unflavored) Packet 1 PACKET PO ×2 (08:17→17:12)
--- NOTE | 2019-11-11 08:56 | MDS.RN ---
Information for the mds was obtained from review of the clinical record, interview of resident, staff, and direct observation of resident's care.
[2019-11-11 10:00] VITALS: PULSE 67; RESP 16; O2SAT 97
--- NOTE | 2019-11-11 11:30 | MDS.RN ---
Completed pain interview for KUSHAL 11/14/19.
[2019-11-11 14:23] VITALS: BP 105/56; PULSE 61; RESP 18; TEMP 36.6; O2SAT 96
[2019-11-11] MEDS: Atorvastatin Calcium 20 MG Tablet PO (23:29)
[2019-11-11] MEDS: traZODone 100 MG Tablet PO (23:29)
[2019-11-12 04:00] VITALS: BP 131/70; PULSE 63; RESP 18; TEMP 36.7; O2SAT 97
[2019-11-12 05:19] VITALS: BP 131/70; PULSE 63
[2019-11-12] MEDS: Metoprolol(XL)Succ 25 MG Tablet PO (05:19)
[2019-11-12] MEDS: Furosemide 80 MG Tablet PO (05:19)
[2019-11-12] MEDS: Lisinopril 2.5 MG Tablet PO (05:19)
[2019-11-12] MEDS: Amiodarone 200 MG Tablet PO (05:19)
[2019-11-12] MEDS: Pantoprazole Sodium 40 MG Tablet PO ×2 (05:19→16:24)
[2019-11-12] MEDS: Tamsulosin HCl 0.4 MG Capsule PO (05:19)
[2019-11-12] MEDS: FLUoxetine 10 MG Capsule PO (05:19)
[2019-11-12] MEDS: Menthol/Lanolin/Calamine/Znox 113 GM Tube 1 APPLIC TOPICAL ×2 (05:20→16:29)
[2019-11-12 06:00] LABS: International Normalized Ratio 1.6; Prothrombin Time (Protime)PT. 18.8 SECONDS (11.7-14.9)
[2019-11-12] MEDS: Juven (unflavored) Packet 1 PACKET PO ×2 (09:10→16:24)
--- NOTE | 2019-11-12 09:42 | CASEMGMT ---
Social Work BIMS and PHQ-9 completed for MDS assessment. Becky Morales, BUSINESS DEVELOPMENT OFFICER CLAY MOLDER
--- NOTE | 2019-11-12 10:43 | NURSING ---
Removed wound VAC dressing. started daily dressing changes with Aqu[employer]. Pt lives in assisted living and they are not currently allowing home health to come in. the staff at [facility] had talked with DONNA Pena stating they will be able to change the dressings as long as pt had the supplies. pt is scheduled to be discharged 11/14/19. Pt has enough for at least 4 dressing changes and script written out for wound care supplies. pt is also to follow up at the wound healing center after discharge.
[2019-11-12 14:25] VITALS: BP 106/73; PULSE 60; RESP 17; TEMP 36.4; O2SAT 98
--- NOTE | 2019-11-12 14:26 | CASEMGMT ---
Social Work Therapy trialed a car transport and pt unable due to left knee brace and precautions. Pt agreeable to pay for w/c transport. Scheduled w/c transport with [facility] and they are to bring w/c and elevating leg rests. broiler supervisor 10 am. Becky Morales, TRANSFORMER STOCK CLERK TICKET SPECULATOR
[2019-11-12] MEDS: traZODone 100 MG Tablet PO (23:16)
[2019-11-12] MEDS: Atorvastatin Calcium 20 MG Tablet PO (23:16)
[2019-11-13 05:49] VITALS: BP 126/73; PULSE 63; RESP 18; TEMP 37.1; O2SAT 95
[2019-11-13 05:52] VITALS: BP 126/73; PULSE 63
[2019-11-13] MEDS: Metoprolol(XL)Succ 25 MG Tablet PO (05:52)
[2019-11-13] MEDS: Lisinopril 2.5 MG Tablet PO (05:53)
[2019-11-13] MEDS: FLUoxetine 10 MG Capsule PO (05:53)
[2019-11-13] MEDS: Amiodarone 200 MG Tablet PO (05:53)
[2019-11-13] MEDS: Pantoprazole Sodium 40 MG Tablet PO ×2 (05:53→17:33)
[2019-11-13] MEDS: Furosemide 80 MG Tablet PO (05:53)
[2019-11-13] MEDS: Tamsulosin HCl 0.4 MG Capsule PO (05:53)
[2019-11-13] MEDS: Menthol/Lanolin/Calamine/Znox 113 GM Tube 1 APPLIC TOPICAL ×2 (05:54→17:34)
[2019-11-13 08:16] LABS: Absolute Lymphocyte Count 0.97 X10^3/uL (0.83-4.51); Absolute Neutrophil Count 5.6 X10^3/uL (2.0-7.7); Basophil# 0.04 X10^3/uL; Basophil% 0.6 % (0-1); Eosinophil# 0.16 X10^3/uL; Eosinophils% 2.2 % (0-5); Hematocrit 37.6 % (40-54); Hemoglobin 11.4 g/dL (13.0-16.5); Lymphocyte # 0.97 X10^3/ul (4.0); Lymphocyte % 13.4 % (19-41); Mean Corp Hgb Conc 30.3 g/dL (32-36); Mean Corpuscular Hgb 28.4 pg (27.0-32.0); Mean Corpuscular Volume 93.5 fL (80-94); Mean Platelet Vol. 9.7 fl (6.2-12.0); Monocyte# 0.47 X10^3/uL; Monocyte% 6.5 % (0-10); NRBC Flagged by Analyzer 0 % (0-5); Neutrophil # 5.59 X10^3/uL (2.7-7.7); Neutrophil % 76.9 % (47-70); Platelet Count 170 K/mm3 (150-450); RBC Distribution Width CV 16.7 % (11.6-14.6); RBC Distribution Width SD 57.5 fl (35.1-43.9); Red Blood Count 4.02 M/mm3 (4.6-6.2); White Blood Count 7.3 K/mm3 (4.4-11.0)
[2019-11-13 08:34] LABS: Anion Gap 6 (5-15); BUN 30 mg/dL (7-18); BUN/Creat Ratio 31.6 RATIO (10-20); Calcium,Total 8.5 mg/dL (8.5-10.1); Chloride 104 mmol/L (98-107); Creatinine, Serum 0.95 mg/dL (0.70-1.30); EST Glomerular Filtration Rate 80 mL/min (>60); Est Glom Filt Rate - Afr Amer 97 mL/min (>60); Estimated Creatinine Clearance 59.77 ml/min; Glucose 91 mg/dL (74-106); Potassium 3.9 mmol/L (3.5-5.1); Sodium Level 138 mmol/L (136-145)
[2019-11-13] MEDS: Juven (unflavored) Packet 1 PACKET PO ×2 (09:08→17:33)
[2019-11-13 10:00] VITALS: PULSE 63; RESP 18; O2SAT 99
[2019-11-13 14:04] VITALS: BP 90/54; PULSE 62; RESP 16; TEMP 36.6; O2SAT 99
[2019-11-13] MEDS: traZODone 100 MG Tablet PO (23:41)
[2019-11-13] MEDS: Atorvastatin Calcium 20 MG Tablet PO (23:41)
[2019-11-14 06:18] VITALS: BP 126/71; PULSE 59; RESP 18; TEMP 36.7; O2SAT 95
[2019-11-14 06:21] VITALS: PULSE 59
[2019-11-14] MEDS: Tamsulosin HCl 0.4 MG Capsule PO (06:21)
[2019-11-14] MEDS: Pantoprazole Sodium 40 MG Tablet PO (06:21)
[2019-11-14] MEDS: Furosemide 80 MG Tablet PO (06:21)
[2019-11-14] MEDS: Metoprolol(XL)Succ 25 MG Tablet PO (06:21)
[2019-11-14] MEDS: FLUoxetine 10 MG Capsule PO (06:21)
[2019-11-14] MEDS: Amiodarone 200 MG Tablet PO (06:21)
[2019-11-14] MEDS: Lisinopril 2.5 MG Tablet PO (06:21)
[2019-11-14] MEDS: Menthol/Lanolin/Calamine/Znox 113 GM Tube 1 APPLIC TOPICAL (06:23)
[2019-11-14] MEDS: Juven (unflavored) Packet 1 PACKET PO (08:53)
--- NOTE | 2019-11-14 09:37 | NURSING ---
Attempted to contact [facility], left voicemail for them to return call for report.
[2019-11-14 10:00] VITALS: PULSE 60; RESP 16; O2SAT 98
--- NOTE | 2019-11-14 10:29 | NURSING ---
Report given to [facility]
[2019-11-14 11:31] VITALS: BP 101/60; PULSE 60; RESP 16; TEMP 36.5; O2SAT 98
== END 2019-11-14 10:15 | disposition home or self-care (01) | DRG 560 ==
PROVIDERS: Admitting Provider Family Medicine Geriatric Medicine; PCP Family Medicine; Visit Provider Family Medicine Geriatric Medicine
DX: Z47.1 Aftercare following joint replacement surgery (principal); I50.22 Chronic systolic (congestive) heart failure; Z96.652 Presence of left artificial knee joint; I48.0 Paroxysmal atrial fibrillation; N40.0 Benign prostatic hyperplasia without lower urinary tract symptoms; E78.5 Hyperlipidemia, unspecified; I11.0 Hypertensive heart disease with heart failure; K21.9 Gastro-esophageal reflux disease without esophagitis; E55.9 Vitamin D deficiency, unspecified; E87.6 Hypokalemia; F32.9 Major depressive disorder, single episode, unspecified
CPT/HCPCS: 36415; 80048; 85025; 85610; 87635; 94799; 97110; 97116; 97162; 97166; 97530; 97535; 97802; J3490; U0003

== ENCOUNTER 2019-12-30 09:00 | Outpatient (RCR) | payer MEDICARE, SELFPAY ==
[2019-10-29 13:54] VITALS: BMI 25.9
[2019-12-30 09:32] VITALS: BP 110/73; PULSE 62; RESP 16; TEMP 35.8; BMI 23.8
[2019-12-30 10:42] VITALS: BP 123/69; PULSE 71; RESP 16
--- NOTE | 2019-12-30 12:56 | PCM.WC.HP ---
(1) Non-healing surgical wound Status: Chronic Code(s): T81.89XA - Other complications of procedures, not elsewhere classified, initial encounter (2) Debility Status: Chronic Code(s): R53.81 - Other malaise (3) Left popliteal fossa abscess Status: Chronic History of Present Illness Date of Service: 12/30/19 Chief Complaint: Non healing surgical wound left politeal fossa History of Wound: Mr. Portillo is an 84 yo who was referred here by his orthopedic surgeon due to nonhealing surgical wound. Had an I&D of the left popliteal abscess in October. Had a prior I&D of an abscess on the anterior aspect of his knee in April. Knee replacement done by another orthopedic surgeon in 2012. Post I&D in October, he has not attained complete wound healing. Per his , he has daily dressings at his assisted living facility. Also initially had a wound VAC. He is scheduled to see an infectious disease specialist next Friday. At this time, they deny chills or fever. Past Medical History Past Medical History: Chronic Problems Left popliteal fossa abscess (Chronic) Valvular heart disease (Chronic) S/P AVR (aortic valve replacement) (Chronic) S/P mitral valve repair (Chronic) CHF (congestive heart failure) (Chronic) Suspect systolic HTN (hypertension) (Chronic) HLD (hyperlipidemia) (Chronic) PAF (paroxysmal atrial fibrillation) (Chronic) BPH (benign prostatic hyperplasia) (Chronic) Debility (Chronic) Colon cancer (Chronic) GERD (gastroesophageal reflux disease) (Chronic) Hypokalemia (Chronic) Vitamin D deficiency (Chronic) Non-healing surgical wound (Chronic) Surgical History: appendectomy, herniorrhaphy - Abdominal., pacemaker implantation, total hip arthroplasty - Left., total knee arthroplasty - Left., tonsillectomy, - - Colon cancer resection, liver cyst intervention, aortic valve replacement, left total knee repair, recent left posterior knee abscess I&D. Allergies/Adverse Reactions: Allergies soap Allergy (Verified 12/30/19 09:54) PT UNSURE OF REACTION RASH WHEN USES SOAPS FROM HOSPITALS Home Medications: Ambulatory Orders Medication Instructions Recorded Amiodarone HCl [Cordarone] 200 mg PO DAILY 10/26/19 Cholecalciferol (VIT D3) [Vitamin 1,000 unit PO DAILY 10/26/19 D3] Furosemide [Lasix] 80 mg PO DAILY 10/26/19 Metoprolol Succinate [Toprol Xl] 25 mg PO DAILY 10/26/19 Pantoprazole Sodium [Protonix] 40 mg PO BID 10/26/19 Potassium Chloride [Klor-Con M20] 30 meq PO DAILY 10/26/19 Simvastatin [Zocor] 40 mg PO QHS 10/26/19 Tamsulosin HCl [Flomax] 0.4 mg PO DAILY 10/26/19 Warfarin [Coumadin] 2 mg PO SUTUTHSA 10/26/19 traZODone [Desyrel] 100 mg PO QHS 10/26/19 Acetaminophen [Tylenol] 1,000 mg PO Q6H PRN PRN tab 11/10/19 Fluoxetine [Prozac] 10 mg PO DAILY #30 cap 11/10/19 Julián (unflavored) [Julián Packet] 1 packet PO BIDCM #60 packet 11/10/19 Ammonium Lactate [Amlactin] 57 gm TP BID 12/30/19 Amoxicillin 2,000 mg PO DAILY PRN 12/30/19 Loperamide HCl [Imodium A-D] 2 mg PO Q4H PRN PRN 12/30/19 Warfarin [Coumadin (PBKC)] 1 mg PO MOWEFR 12/30/19 - Family History Maternal Heart Disease, Hypertension Paternal Heart Disease Smoking Status: Never smoker Review of Systems Constitutional: Denies: Anorexia, Chills, Fever Eyes: Denies: Blurred vision, Pain, Redness HEENT: Denies: Difficulty Hearing, Difficulty Swallowing, Head Aches Cardiovascular: Denies: Chest Pain, Chest Pressure, Orthopnea Respiratory: Denies: Cough, Hemoptysis Gastrointestinal: Denies: Abdominal Pain, Hematemesis, Vomiting Skin: Denies: Jaundice - Physical Exam Vital Signs Temp Pulse Resp BP 96.5 F L 71 16 123/69 H 12/30/19 09:32 12/30/19 10:42 12/30/19 10:42 12/30/19 10:42 General: Alert, Oriented x3, Cooperative, No apparent distress HEENT: Atraumatic, Normocephalic Oral: Moist Mucosa Neck: Supple Lungs: Normal air movement Extremities: No cyanosis Skin: Ulcer/ Wound Wound Measurements and Assessment WC - Nurse 1 - General Ulcer Measurement Start: 12/30/19 09:13 Freq: Status: Active Protocol: Activity Type Activity Date Activity User E-Sign Co-Sign Detail Recorded Client Recorded Date Recorded By Document 12/30/19 09:32 [facility] [id number] 12/30/19 09:51 [facility] 12/30/19 09:32 Wound Center Nurse 1 [Ulcer Assessment] #1- LEFT POST KNEE -Combined with other wound No -Current Size (cm) - Length 3.1 -Current Size (cm) - Width 2 -Current Size (cm) - Depth 1.3 -Total Square Cm 6.2 -Photo Taken No -Epithelialization None Present -Tunneling No -Undermining/Tunneling No -Circular Undermining No -Exudate Amt Medium -Exudate Type Serosanguineous -Wound Margin Distinct, Outline Attached -Granulation Amt Medium (34-66%) -Granulation Quality Pale,Red -Slough/Fibrin Yes -Necrosis Amt Medium (34-66%) -Necrotic Tissue Type Adherent Slough -Texture (Skylar-wound Skin Appearance) Assessed, Scarring -Moisture (Skylar-wound Skin Appearance Assessed,Dry/ ) Scaly -Color (Skylar-wound Skin Appearance) Assessed -Temperature (Skylar-wound Skin No Abnormality Appearance) (Pt Warm) -Tenderness on Palpation (Skylar-wound No Skin Appearance) -Ulcer Cleansing Rinsed/ Irrigated with Saline -Foul Odor after Cleansing No -Anesthetic Used 4% Lidocaine Solution [Edema Assessment] -Lower Limb Edema Present Yes -Right Calf (cm) 36 -Right Ankle (cm) 23.8 -Left Calf (cm) 34.9 -Left Ankle (cm) 23.6 WC - Nurse 2 - General Ulcer CM Notes Start: 12/30/19 09:13 Freq: Status: Active Protocol: Activity Type Activity Date Activity User E-Sign Co-Sign Detail Recorded Client Recorded Date Recorded By Document 12/30/19 10:09 MW [id number] 12/30/19 10:23 MW 12/30/19 10:09 Wound Center Nurse 2 [Procedure/Treatment] #1- LEFT POST KNEE -Time 10:09 -Correct Patient Yes -Correct Side, Site, Position Yes -Correct Procedure Yes -Procedure Performed Yes -Type of Procedure Debridement -Clinical Debridement Subcutaneous -Tissue Removed Subcutaneous -Post Debridement (cm) - Length 0.8 -Post Debridement (cm) - Width 1.5 -Post Debridement (cm) - Depth 2.8 -Total Square (Post) (cm) 1.20 -Area of Debridement (cm) - Length 0.8 -Area of Debridement (cm) - Width 1.5 -Total Square (Area) (cm) 1.20 -Tunneling No -Undermining/Tunneling No -Circular Undermining No -Wound/Ulcer Outcome Not Healed -Ulcer Cleansing Rinsed/ Irrigated with Saline -Foul Odor after Cleansing No -Bioengineered Tissue No -Bleeding Controlled with Pressure -Offloading No -Debridement - Subq, 1st 20sq cm Yes [See Physician Procedure note for Specifics] Pain Scale: 0-10 Numeric [Pain] -Is Patient Pain Free? Yes WC - Nurse 3 - General Ulcer D/C NN Start: 12/30/19 09:13 Freq: Status: Active Protocol: Activity Type Activity Date Activity User E-Sign Co-Sign Detail Recorded Client Recorded Date Recorded By Document 12/30/19 10:42 [facility] [id number] 12/30/19 10:43 [facility] 12/30/19 10:42 Wound Care Nurse 3 [Wound Dressing] #1- LEFT POST KNEE -Ulcer Cleansing Rinsed/ Irrigated with Saline -Foul Odor after Cleansing No -Primary Dressing Applied Other -Other Dressing aquacel ag rope -2 -Primary Dressing Covered/Secured Dry Gauze & with Roll Gauze, Secured with Tape,Other -Other Covering abd [Post Procedure Tolerated] -Treatment Response Procedure Tolerated Well Vital Signs [Pulse] -Pulse Rate (60-100 beats/min) 71 -Pulse Location Monitor [Respirations] -Respiratory Rate (12-18 breaths/min) 16 -Respiratory rate source Observation -Oxygen Delivery Method Room Air [Blood Pressure] -Blood Pressure (90/60-120/80 mm Hg) 123/69 H -Blood Pressure Mean (mm Hg) 87 -Source Monitor -Position Supine -Blood Pressure Location Left Forearm Pain Scale: 0-10 Numeric [Pain] -Is Patient Pain Free? No WC - Visit Discharge [Visit Discharge Information] -Discharge Condition Stable -Ambulatory Status Wheelchair -Transportation Private Auto -Accompanied by Musculoskeletal: No Muscle Wasting Neurological: Cranial nerves II-XII grossly intact Psych/Mental Status: Normal Affect Debridement Note Post-Debridement Measurements/Treatment WC - Nurse 2 - General Ulcer CM Notes Start: 12/30/19 09:13 Freq: Status: Active Protocol: Activity Type Activity Date Activity User E-Sign Co-Sign Detail Recorded Client Recorded Date Recorded By Document 12/30/19 10:09 [id number] 12/30/19 10:23 12/30/19 10:09 Wound Center Nurse 2 #1- LEFT POST KNEE -Time 10:09 -Correct Patient Yes -Correct Side, Site, Position Yes -Correct Procedure Yes -Procedure Performed Yes -Type of Procedure Debridement -Clinical Debridement Subcutaneous -Tissue Removed Subcutaneous -Post Debridement (cm) - Length 0.8 -Post Debridement (cm) - Width 1.5 -Post Debridement (cm) - Depth 2.8 -Total Square (Post) (cm) 1.20 -Area of Debridement (cm) - Length 0.8 -Area of Debridement (cm) - Width 1.5 -Total Square (Area) (cm) 1.20 -Tunneling No -Undermining/Tunneling No -Circular Undermining No -Wound/Ulcer Outcome Not Healed -Ulcer Cleansing Rinsed/ Irrigated with Saline -Foul Odor after Cleansing No -Bioengineered Tissue No -Bleeding Controlled with Pressure -Offloading No -Debridement - Subq, 1st 20sq cm Yes Pain Scale: 0-10 Numeric Is Patient Pain Free? Yes WC - Nurse 3 - General Ulcer D/C NN Start: 12/30/19 09:13 Freq: Status: Active Protocol: Activity Type Activity Date Activity User E-Sign Co-Sign Detail Recorded Client Recorded Date Recorded By Document 12/30/19 10:42 [facility] [id number] 12/30/19 10:43 [facility] 12/30/19 10:42 Wound Care Nurse 3 #1- LEFT POST KNEE -Ulcer Cleansing Rinsed/ Irrigated with Saline -Foul Odor after Cleansing No -Primary Dressing Applied Other -Other Dressing aquacel ag rope -2 -Primary Dressing Covered/Secured with Dry Gauze & Roll Gauze, Secured with Tape,Other -Other Covering abd Treatment Response Procedure Tolerated Well Vital Signs Pulse Rate (60-100 beats/min) 71 Pulse Location Monitor Respiratory Rate (12-18 breaths/min) 16 Respiratory rate source Observation Oxygen Delivery Method Room Air Blood Pressure (90/60-120/80 mm Hg) 123/69 H Blood Pressure Mean (mm Hg) 87 Source Monitor Position Supine Blood Pressure Location Left Forearm Pain Scale: 0-10 Numeric Is Patient Pain Free? No WC - Visit Discharge Discharge Condition Stable Ambulatory Status Wheelchair Transportation Private Auto Accompanied by Wound debrided: Left Politeal fossa Type of Debridement: Excisional debridement Anesthesia Used: 4% Lidocaine Solution Depth: Down to and including healthy tissue, in the subcutaneous layer Percentage of wound debrided: 100 Instrument Used: 5mm curette Tissue Removed: Slough and devitalized tissue Severity: Fat Layer Exposed Amount of bleeding with debridement: Mild Bleeding Controlled with: Pressure Patient tolerated procedure well Assessment/Plan Active Problems Left popliteal fossa abscess (Chronic) Debility (Chronic) Non-healing surgical wound (Chronic) Assessment: 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 Nonhealing surgical wound post I&D in October. Plan: Debridement done as documented above. Procedure was well-tolerated. Significant depth. Cultures taken. I believe he will do well with a snap VAC, application process begun. For now, Aquacel silver daily to twice daily depending on drainage. Continue David wraps. Leg elevation as tolerated. Increase protein intake. Their questions were answered and they were advised to call with any further questions or concerns. Follow-up in a week with Dr. Rogers. This note was generated with [employer] dictation software. It may contain incorrect words, spelling, and punctuation that were not noted in checking the note before signing. Multi Select Codes - Visit Charges Office Visit/Consults: 99747 OV L3 New - Integumentary Integumentary CPT Codes: 39363 Maryann subq tissue 20 sq cm/<
== END 2020-01-01 23:59 ==
LOC: WC 09:00
PROVIDERS: PCP Family Medicine; Visit Provider Surgery
DX: L02.416 Cutaneous abscess of left lower limb (principal); T81.89XA Other complications of procedures, not elsewhere classified, initial encounter; R53.81 Other malaise; I10 Essential (primary) hypertension; E78.5 Hyperlipidemia, unspecified; N40.0 Benign prostatic hyperplasia without lower urinary tract symptoms; K21.9 Gastro-esophageal reflux disease without esophagitis; E87.6 Hypokalemia; E55.9 Vitamin D deficiency, unspecified; I48.0 Paroxysmal atrial fibrillation; Z79.01 Long term (current) use of anticoagulants; Z82.49 Family history of ischemic heart disease and other diseases of the circulatory system; Z85.038 Personal history of other malignant neoplasm of large intestine; Z95.0 Presence of cardiac pacemaker; Z95.2 Presence of prosthetic heart valve; Z98.890 Other specified postprocedural states
CPT/HCPCS: 11042; 87070; 87075; 87077; 87186; 87205; 99213; G0463

== ENCOUNTER 2020-01-18 09:30 | Outpatient (RCR) | payer MEDICARE, SELFPAY ==
[2020-01-02 00:41] VITALS: BP 123/69; PULSE 71; RESP 16; TEMP 35.8
[2020-01-04 10:56] VITALS: BP 115/72; PULSE 63; RESP 16; TEMP 35.7; BMI 23.8
--- NOTE | 2020-01-04 11:49 | HP.PCM_ITS ---
(1) Cerebrovascular accident (CVA) Status: Acute Qualifiers: Laterality of affected vessel: left Code(s): I63.9 - Cerebral infarction, unspecified (2) Infected prosthetic knee joint Status: Chronic Qualifiers: Encounter type: initial encounter Qualified Code(s): T84.59XA - Infection and inflammatory reaction due to other internal joint prosthesis, initial encounter; Z96.659 - Presence of unspecified artificial knee joint Code(s): T84.59XA - Infection and inflammatory reaction due to other internal joint prosthesis, initial encounter; Z96.659 - Presence of unspecified artificial knee joint (3) Ambulatory dysfunction Status: Chronic Code(s): R26.2 - Difficulty in walking, not elsewhere classified (4) Left popliteal fossa abscess Status: Chronic (5) Valvular heart disease Status: Chronic Code(s): I38 - Endocarditis, valve unspecified (6) S/P AVR (aortic valve replacement) Status: Chronic Code(s): Z95.2 - Presence of prosthetic heart valve (7) S/P mitral valve repair Status: Chronic Code(s): Z98.890 - Other specified postprocedural states (8) CHF (congestive heart failure) Status: Chronic Qualifiers: Code(s): I50.9 - Heart failure, unspecified Comment: Suspect systolic (9) HTN (hypertension) Status: Chronic Qualifiers: Code(s): I10 - Essential (primary) hypertension (10) HLD (hyperlipidemia) Status: Chronic Qualifiers: Code(s): E78.5 - Hyperlipidemia, unspecified (11) PAF (paroxysmal atrial fibrillation) Status: Chronic Code(s): I48.0 - Paroxysmal atrial fibrillation (12) Status cardiac pacemaker Status: Chronic Code(s): Z95.0 - Presence of cardiac pacemaker (13) BPH (benign prostatic hyperplasia) Status: Chronic Code(s): N40.0 - Benign prostatic hyperplasia without lower urinary tract symptoms (14) Debility Status: Chronic Code(s): R53.81 - Other malaise (15) Colon cancer Status: Chronic Code(s): C18.9 - Malignant neoplasm of colon, unspecified (16) GERD (gastroesophageal reflux disease) Status: Chronic Code(s): K21.9 - Gastro-esophageal reflux disease without esophagitis (17) Vitamin D deficiency Status: Chronic Code(s): E55.9 - Vitamin D deficiency, unspecified (18) Non-healing surgical wound Status: Chronic Qualifiers: Encounter type: initial encounter Qualified Code(s): T81.89XA - Other complications of procedures, not elsewhere classified, initial encounter Code(s): T81.89XA - Other complications of procedures, not elsewhere classified, initial encounter History of Present Illness Date of Service: 01/04/20 Chief Complaint: Draining abscess sinus of the left popliteal space History of Wound: This is an 84-year-old male, referred by his orthopedic surgeon, Dr. Haywood. In 2012, the patient underwent a left total knee replacement. 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 Wrist 2019, the patient developed a large abscess in the left popliteal space, which subsequently drained spontaneously. On October 27, 2019, the patient was taken to the operating room by Dr. Radames Haywood, who performed an irrigation and debridement of the left knee popliteal abscess. Since that time, the patient has had chronic drainage of purulent material. The draining sinus has failed to heal. He has recently been under the care of Dr. Liu, infectious disease specialist. The patient has been on long-term antibiotics, for infection suppression purposes. The patient is not felt to be a good candidate for major surgical intervention. It is known that the patient is scheduled to be evaluated by Dr. Liu tomorrow, January 05, 2020. The patient has suffered from a cerebrovascular accident within the last several weeks, which has adversely affected the right side of his body. As result, his ambulatory capacity has been impaired. Patient is able only to mobilize using a walker. Home health nursing care is involved in the patient's management. The patient denies fevers, sweats, or chills. Past Medical History Past Medical History: Chronic Problems Left popliteal fossa abscess (Chronic) Valvular heart disease (Chronic) S/P AVR (aortic valve replacement) (Chronic) S/P mitral valve repair (Chronic) CHF (congestive heart failure) (Chronic) Suspect systolic HTN (hypertension) (Chronic) HLD (hyperlipidemia) (Chronic) PAF (paroxysmal atrial fibrillation) (Chronic) Status cardiac pacemaker (Chronic) BPH (benign prostatic hyperplasia) (Chronic) Debility (Chronic) Colon cancer (Chronic) GERD (gastroesophageal reflux disease) (Chronic) Hypokalemia (Chronic) Vitamin D deficiency (Chronic) Non-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 Surgical History: appendectomy, herniorrhaphy - Abdominal., pacemaker implantation, total hip arthroplasty - Left., total knee arthroplasty - Left., tonsillectomy, - - Colon cancer resection, liver cyst intervention, aortic valve replacement, left total knee repair, recent left posterior knee abscess I&D. Allergies/Adverse Reactions: Allergies soap Allergy (Verified 12/30/19 09:54) PT UNSURE OF REACTION RASH WHEN USES SOAPS FROM HOSPITALS Home Medications: Ambulatory Orders Medication Instructions Recorded Amiodarone HCl [Cordarone] 200 mg PO DAILY 10/26/19 Cholecalciferol (VIT D3) [Vitamin 1,000 unit PO DAILY 10/26/19 D3] Furosemide [Lasix] 80 mg PO DAILY 10/26/19 Metoprolol Succinate [Toprol Xl] 25 mg PO DAILY 10/26/19 Pantoprazole Sodium [Protonix] 40 mg PO BID 10/26/19 Potassium Chloride [Klor-Con M20] 30 meq PO DAILY 10/26/19 Simvastatin [Zocor] 40 mg PO QHS 10/26/19 Tamsulosin HCl [Flomax] 0.4 mg PO DAILY 10/26/19 Warfarin [Coumadin] 2 mg PO SUTUTHSA 10/26/19 traZODone [Desyrel] 100 mg PO QHS 10/26/19 Acetaminophen [Tylenol] 1,000 mg PO Q6H PRN PRN tab 11/10/19 Fluoxetine [Prozac] 10 mg PO DAILY #30 cap 11/10/19 Julián (unflavored) [Julián Packet] 1 packet PO BIDCM #60 packet 11/10/19 Ammonium Lactate [Amlactin] 57 gm TP BID 12/30/19 Amoxicillin 2,000 mg PO DAILY PRN 12/30/19 Loperamide HCl [Imodium A-D] 2 mg PO Q4H PRN PRN 12/30/19 Warfarin [Coumadin (PBKC)] 1 mg PO MOWEFR 12/30/19 - Family History Maternal Heart Disease, Hypertension Paternal Heart Disease Social History: Patient is a retired diesel truck technician. He lives with his . He denies use of alcohol and tobacco products. Lives: Spouse/ Significant Other Smoking Status: Never smoker Tobacco Use: Non-smoker Alcohol: None Drugs: None Review of Systems Constitutional: Denies: Chills, Fever, Weight Change Eyes: Denies: Pain, Vision Change HEENT: Denies: Difficulty Hearing, Difficulty Swallowing, Sinus Congestion Cardiovascular: Denies: Chest Pain, Palpitations Respiratory: Denies: Cough, Shortness of Breath Gastrointestinal: Denies: Diarrhea, Nausea, Vomiting Genitourinary: Denies: Dysuria, Hematuria Endocrine: Denies: Heat/ Cold Intolerance, Polydipsia, Polyuria Hematologic/ Lymphatic: Denies: Easy Bruising, Easy Bleeding - Physical Exam Vital Signs Temp Pulse Resp BP 96.2 F L 63 16 115/72 01/04/20 10:56 01/04/20 10:56 01/04/20 10:56 01/04/20 10:56 General: Alert, Oriented x3, Cooperative, No apparent distress, Well developed, Well nourished HEENT: Atraumatic, PERRLA, EOMI, Normocephalic Oral: Moist Mucosa Neck: No JVD Lungs: Normal air movement Abdomen: Soft, Non Tender, Non-Distended Extremities: No clubbing, No cyanosis, No edema, No Calf Tenderness, - - A small opening is noted in the left popliteal space. Gentle probing with a cotton tip applicator reveals that apparent sinus tract extends superiorly up toward the knee joint anteriorly. A cotton tip applicator is inserted without force to a distance of about 4.5 cm. Skin: No rashes Wound Measurements and Assessment WC - Nurse 1 - General Ulcer Measurement Start: 01/04/20 10:56 Freq: Status: Active Protocol: Activity Type Activity Date Activity User E-Sign Co-Sign Detail Recorded Client Recorded Date Recorded By Document 01/04/20 10:56 [facility] [id number] 01/04/20 11:05 [facility] 01/04/20 10:56 Wound Center Nurse 1 [Ulcer Assessment] #1- LEFT POST KNEE -Combined with other wound No -Current Size (cm) - Length 0.8 -Current Size (cm) - Width 0.5 -Current Size (cm) - Depth 2.3 -Total Square Cm 0.40 -Photo Taken No -Epithelialization None Present -Tunneling No -Undermining/Tunneling No -Circular Undermining No -Exudate Amt Medium -Exudate Type Sanguineous -Wound Margin Distinct, Outline Attached -Granulation Amt Large (67-100%) -Granulation Quality Red -Slough/Fibrin Yes -Necrosis Amt Small (1-33%) -Necrotic Tissue Type Adherent Slough -Texture (Skylar-wound Skin Appearance) Assessed, Scarring -Moisture (Skylar-wound Skin Appearance Assessed ) -Color (Skylar-wound Skin Appearance) Assessed -Temperature (Skylar-wound Skin No Abnormality Appearance) (Pt Warm) -Tenderness on Palpation (Skylar-wound No Skin Appearance) -Ulcer Cleansing Rinsed/ Irrigated with Saline -Foul Odor after Cleansing No -Anesthetic Used 4% Lidocaine Solution Musculoskeletal: Muscle Wasting - Lower extremities Neurological: Cranial nerves II-XII grossly intact, Neuro grossly intact Psych/Mental Status: Normal Affect, Appropriate, Alert and oriented to time, place, person, mood and affect Debridement Note No debridement was completed today Assessment/Plan Assessment: This is an 84-year-old debilitated male with multiple pre-existing medical problems who presents with an infected left prosthetic knee joint with draining sinus in the left popliteal space. The prosthetic knee joint was p laced in 2012, and the patient presented only within recent months with apparent infection involving the knee joint, manifest as a draining sinus in the left popliteal space. Patient is known to both Dr. Haywood and Dr. Liu. Patient has an appointment with Dr. Liu tomorrow. Plan: We are to implement the use of saline moistened 1/4 inch Nu Gauze into the sinus tract on a daily basis. Home health nursing will facilitate these daily packing changes. Recent laboratory results have been reviewed, and are as follows: White blood count 7.3, hemoglobin 11.4, hematocrit 37.6, platelets 170,000, sodium 138, potassium 3.9, chloride 104, BUN 30, creatinine 0.95, glucose 91, total protein 5.3, albumin 2.3. A culture obtained last week is positive for Citrobacter koseri, and organism which has been isolated from the wound in the past as well. As mentioned previously, the patient has an appoint with Dr. Liu tomorrow, infectious disease specialist. Dr. Liu's recommendations will be awaited. The patient's management appears to be complicated due to his multiple pre-existing medical problems, debility, and his advanced age. A multidisciplinary approach will be beneficial. A lengthy discussion has been undertaken with the patient and his , who is at the bedside. The patient is likely not to be a candidate for removal of his prosthesis. Additionally, it is unlikely that antibiotics alone will resolve patient's infection, which appears to involve his left knee hardware. Therefore, it may be unlikely that the draining sinus and open wound in the left popliteal region will heal completely. Patient management will be discussed with the patient's other providers, and management will be conceived using a multidisciplinary approach. The patient has been advised to enhance his nutritional intake. The patient will return in 1 week for reassessment. Influenza vaccine was not administered today. The patient is not a smoker. Pa black is 5 feet 10 inches tall. He he weighs 169 pounds. His BMI is 24.2, which is normal. This note was generated with [employer] software. It may contain incorrect words, spelling, and punctuation that were not noted in checking the note before signing.
[2020-01-11 10:53] VITALS: BP 133/73; PULSE 62; RESP 16; TEMP 36.4; BMI 23.8
--- NOTE | 2020-01-11 13:52 | HP.PCM_ITS ---
(1) Cerebrovascular accident (CVA) Status: Acute Qualifiers: Laterality of affected vessel: left Code(s): I63.9 - Cerebral infarction, unspecified (2) Infected prosthetic knee joint Status: Chronic Qualifiers: Encounter type: initial encounter Qualified Code(s): T84.59XA - Infection and inflammatory reaction due to other internal joint prosthesis, initial encounter; Z96.659 - Presence of unspecified artificial knee joint Code(s): T84.59XA - Infection and inflammatory reaction due to other internal joint prosthesis, initial encounter; Z96.659 - Presence of unspecified artificial knee joint (3) Ambulatory dysfunction Status: Chronic Code(s): R26.2 - Difficulty in walking, not elsewhere classified (4) Left popliteal fossa abscess Status: Chronic (5) Valvular heart disease Status: Chronic Code(s): I38 - Endocarditis, valve unspecified (6) S/P AVR (aortic valve replacement) Status: Chronic Code(s): Z95.2 - Presence of prosthetic heart valve (7) S/P mitral valve repair Status: Chronic Code(s): Z98.890 - Other specified postprocedural states (8) CHF (congestive heart failure) Status: Chronic Qualifiers: Code(s): I50.9 - Heart failure, unspecified Comment: Suspect systolic (9) HTN (hypertension) Status: Chronic Qualifiers: Code(s): I10 - Essential (primary) hypertension (10) HLD (hyperlipidemia) Status: Chronic Qualifiers: Code(s): E78.5 - Hyperlipidemia, unspecified (11) PAF (paroxysmal atrial fibrillation) Status: Chronic Code(s): I48.0 - Paroxysmal atrial fibrillation (12) Status cardiac pacemaker Status: Chronic Code(s): Z95.0 - Presence of cardiac pacemaker (13) BPH (benign prostatic hyperplasia) Status: Chronic Code(s): N40.0 - Benign prostatic hyperplasia without lower urinary tract symptoms (14) Debility Status: Chronic Code(s): R53.81 - Other malaise (15) Colon cancer Status: Chronic Code(s): C18.9 - Malignant neoplasm of colon, unspecified (16) GERD (gastroesophageal reflux disease) Status: Chronic Code(s): K21.9 - Gastro-esophageal reflux disease without esophagitis (17) Vitamin D deficiency Status: Chronic Code(s): E55.9 - Vitamin D deficiency, unspecified (18) Non-healing surgical wound Status: Chronic Qualifiers: Encounter type: initial encounter Qualified Code(s): T81.89XA - Other complications of procedures, not elsewhere classified, initial encounter Code(s): T81.89XA - Other complications of procedures, not elsewhere classified, initial encounter History of Present Illness Date of Service: 01/11/20 Chief Complaint: Draining abscess sinus of the left popliteal space History of Wound: This is an 84-year-old male, referred by his orthopedic surgeon, Dr. Haywood. In 2012, the patient underwent a left total knee replacement. 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 In October 2019, the patient developed a large abscess in the left popliteal space, which subsequently drained spontaneously. On October 27, 2019, the patient was taken to the operating room by Dr. Radames Haywood, who performed an irrigation and debridement of the left knee popliteal abscess. Since that time, the patient has had chronic drainage of purulent material. The draining sinus has failed to heal. He has recently been under the care of Dr. Liu, infectious disease specialist. The patient has been on long-term antibiotics, for infection suppression purposes. The patient is not felt to be a good candidate for major surgical intervention. The patient has suffered from a cerebrovascular accident within the last several weeks, which has adversely affected the right side of his body. As result, his ambulatory capacity has been impaired. Patient is able only to mobilize using a walker. Home health nursing care is involved in the patient's management. The patient denies fevers, sweats, or chills. Past Medical History Past Medical History: Chronic Problems Left popliteal fossa abscess (Chronic) Valvular heart disease (Chronic) S/P AVR (aortic valve replacement) (Chronic) S/P mitral valve repair (Chronic) CHF (congestive heart failure) (Chronic) Suspect systolic HTN (hypertension) (Chronic) HLD (hyperlipidemia) (Chronic) PAF (paroxysmal atrial fibrillation) (Chronic) Status cardiac pacemaker (Chronic) BPH (benign prostatic hyperplasia) (Chronic) Debility (Chronic) Colon cancer (Chronic) GERD (gastroesophageal reflux disease) (Chronic) Hypokalemia (Chronic) Vitamin D deficiency (Chronic) Non-healing surgical wound (Chronic) Infected prosthetic knee joint (Chronic) Ambulatory dysfunction (Chronic) Surgical History: appendectomy, herniorrhaphy - Abdominal., pacemaker implantation, total hip arthroplasty - Left., total knee arthroplasty - Left., tonsillectomy, - - Colon cancer resection, liver cyst intervention, aortic valve replacement, left total knee repair, recent left posterior knee abscess I&D. Allergies/Adverse Reactions: Allergies soap Allergy (Verified 12/30/19 09:54) PT UNSURE OF REACTION RASH WHEN USES SOAPS FROM HOSPITALS Home Medications: Ambulatory Orders Medication Instructions Recorded Amiodarone HCl [Cordarone] 200 mg PO DAILY 10/26/19 Cholecalciferol (VIT D3) [Vitamin 1,000 unit PO DAILY 10/26/19 D3] Furosemide [Lasix] 80 mg PO DAILY 10/26/19 Metoprolol Succinate [Toprol Xl] 25 mg PO DAILY 10/26/19 Pantoprazole Sodium [Protonix] 40 mg PO BID 10/26/19 Potassium Chloride [Klor-Con M20] 30 meq PO DAILY 10/26/19 Simvastatin [Zocor] 40 mg PO QHS 10/26/19 Tamsulosin HCl [Flomax] 0.4 mg PO DAILY 10/26/19 Warfarin [Coumadin] 2 mg PO SUTUTHSA 10/26/19 traZODone [Desyrel] 100 mg PO QHS 10/26/19 Acetaminophen [Tylenol] 1,000 mg PO Q6H PRN PRN tab 11/10/19 Fluoxetine [Prozac] 10 mg PO DAILY #30 cap 11/10/19 Julián (unflavored) [Julián Packet] 1 packet PO BIDCM #60 packet 11/10/19 Ammonium Lactate [Amlactin] 57 gm TP BID 12/30/19 Amoxicillin 2,000 mg PO DAILY PRN 12/30/19 Loperamide HCl [Imodium A-D] 2 mg PO Q4H PRN PRN 12/30/19 Warfarin [Coumadin (PBKC)] 1 mg PO MOWEFR 12/30/19 - Family History Maternal Heart Disease, Hypertension Paternal Heart Disease Lives: Spouse/ Significant Other Smoking Status: Never smoker Tobacco Use: Non-smoker Alcohol: None Drugs: None Review of Systems Constitutional: Denies: Chills, Fever, Weight Change Eyes: Denies: Pain, Vision Change HEENT: Denies: Difficulty Hearing, Difficulty Swallowing, Sinus Congestion Cardiovascular: Denies: Chest Pain, Palpitations Respiratory: Denies: Cough, Shortness of Breath Gastrointestinal: Denies: Diarrhea, Nausea, Vomiting Genitourinary: Denies: Dysuria, Hematuria Endocrine: Denies: Heat/ Cold Intolerance, Polydipsia, Polyuria Hematologic/ Lymphatic: Denies: Easy Bruising, Easy Bleeding - Physical Exam Vital Signs Temp Pulse Resp BP 97.5 F L 62 16 133/73 H 01/11/20 10:53 01/11/20 10:53 01/11/20 10:53 01/11/20 10:53 General: Alert, Oriented x3, Cooperative, No apparent distress, Well developed, Well nourished HEENT: Atraumatic, PERRLA, EOMI, Normocephalic Oral: Moist Mucosa Neck: No JVD Lungs: Normal air movement Abdomen: Non-Distended Extremities: No clubbing, No cyanosis, No edema, No Calf Tenderness Addt'l Wound Findings: A small open wound is noted in the left popliteal space. Gentle probing of the site reveals that the wound tracks superiorly towards the left knee joint, with a depth of approximately 5 cm. Yellowish drainage is noted in small amounts. Dimensions are documented elsewhere. Skin: No rashes Wound Measurements and Assessment WC - Nurse 1 - General Ulcer Measurement Start: 01/04/20 10:56 Freq: Status: Active Protocol: Activity Type Activity Date Activity User E-Sign Co-Sign Detail Recorded Client Recorded Date Recorded By Document 01/11/20 10:53 [facility] [id number] 01/11/20 11:03 [facility] 01/11/20 10:53 Wound Center Nurse 1 [Ulcer Assessment] #1- LEFT POST KNEE -Combined with other wound No -Current Size (cm) - Length 0.3 -Current Size (cm) - Width 0.4 -Current Size (cm) - Depth 2.4 -Total Square Cm 0.12 -Photo Taken No -Epithelialization None Present -Tunneling No -Undermining/Tunneling No -Circular Undermining No -Exudate Amt Large -Exudate Type Serosanguineous -Wound Margin Distinct, Outline Attached -Granulation Amt Large (67-100%) -Granulation Quality [place] -Slough/Fibrin No -Necrosis Amt None Present (0 %) -Texture (Skylar-wound Skin Appearance) Assessed, Scarring -Moisture (Skylar-wound Skin Appearance Assessed ) -Color (Skylar-wound Skin Appearance) Assessed -Temperature (Skylar-wound Skin No Abnormality Appearance) (Pt Warm) -Tenderness on Palpation (Skylar-wound No Skin Appearance) -Ulcer Cleansing Rinsed/ Irrigated with Saline -Foul Odor after Cleansing No -Anesthetic Used 4% Lidocaine Solution WC - Nurse 3 - General Ulcer D/C NN Start: 01/04/20 10:56 Freq: Status: Active Protocol: Activity Type Activity Date Activity User E-Sign Co-Sign Detail Recorded Client Recorded Date Recorded By Document 01/11/20 12:05 DL [id number] 01/11/20 12:06 DL 01/11/20 12:05 Wound Care Nurse 3 [Wound Dressing] -Ulcer Cleansing Wound Cleanser -Foul Odor after Cleansing No -Other Dressing / in gauze packng -Primary Dressing Covered/Secured Dry Gauze, with Secured with Tape WC - Visit Discharge [Visit Discharge Information] -Discharge Condition Stable -Ambulatory Status Wheelchair -Transportation Private Auto -Accompanied by [Facility Notification] -Facility Type [facility] -Orders Sent Yes Neurological: Cranial nerves II-XII grossly intact, Neuro grossly intact Psych/Mental Status: Normal Affect, Appropriate, Alert and oriented to time, place, person, mood and affect Debridement Note Post-Debridement Measurements/Treatment TAPAN - Nurse 2 - General Ulcer CM Notes Start: 01/04/20 10:56 Freq: Status: Active Protocol: Activity Type Activity Date Activity User E-Sign Co-Sign Detail Recorded Client Recorded Date Recorded By Document 01/04/20 16:23 PL [id number] 01/04/20 16:23 PL 01/04/20 16:23 Wound Center Nurse 2 #1- LEFT POST KNEE -Procedure Performed No Pain Scale: 0-10 Numeric Is Patient Pain Free? Yes - Nurse 3 - General Ulcer D/C NN Start: 01/04/20 10:56 Freq: Status: Active Protocol: Activity Type Activity Date Activity User E-Sign Co-Sign Detail Recorded Client Recorded Date Recorded By Document 01/04/20 11:54 [facility] [id number] 01/04/20 11:55 [facility] Document 01/11/20 12:05 DL [id number] 01/11/20 12:06 DL 01/04/20 01/11/20 11:54 12:05 Wound Care Nurse 3 #1- LEFT POST KNEE -Ulcer Cleansing Rinsed/ Wound Cleanser Irrigated with Saline -Foul Odor after Cleansing No No -Primary Dressing Applied Nugauze, Plain Iodoform -Other Dressing 1/4 in gauze packng -Primary Dressing Covered/Secured with Dry Gauze & Dry Gauze, Roll Gauze, Secured with Secured with Tape Tape,Other -Other Covering abd -Nugauze, Plain Iodoform 1/4 1 Treatment Response Procedure Tolerated Well Pain Scale: 0-10 Numeric Is Patient Pain Free? Yes WC - Visit Discharge Discharge Condition Stable Stable Ambulatory Status Wheelchair Wheelchair Transportation Private Auto Private Auto Accompanied by Facility Type [facility] Other assisted living Orders Sent Yes No debridement was completed today Assessment/Plan Active Problems Left popliteal fossa abscess (Chronic) Valvular heart disease (Chronic) S/P AVR (aortic valve replacement) (Chronic) S/P mitral valve repair (Chronic) CHF (congestive heart failure) (Chronic) Suspect systolic HTN (hypertension) (Chronic) HLD (hyperlipidemia) (Chronic) PAF (paroxysmal atrial fibrillation) (Chronic) Status cardiac pacemaker (Chronic) BPH (benign prostatic hyperplasia) (Chronic) Debility (Chronic) Colon cancer (Chronic) GERD (gastroesophageal reflux disease) (Chronic) Vitamin D deficiency (Chronic) Non-healing surgical wound (Chronic) Cerebrovascular accident (CVA) (Acute) Infected prosthetic knee joint (Chronic) Ambulatory dysfunction (Chronic) Assessment: This is an 84-year-old debilitated male with multiple pre-existing medical problems who presents with an infected left prosthetic knee joint with a draining sinus in the left popliteal space. The prosthetic knee joint was placed in 2012, and the patient presented only within recent months with apparent infection involving the knee joint, manifest as a draining sinus in the left popliteal space. The patient is known to both Dr. Haywood and Dr. Liu. The patient was evaluated by Dr. Liu last week, and Dr. Liu has documented we will start him on Duricef 1 g twice daily for 4 wee , then plan will be to decrease dose for long-term suppression. Plan: We are to continue the use of saline moistened 1/4 inch Nu Gauze into the sinus tract on a daily basis. Home health nursing will facilitate these daily packing changes. Recent laboratory results have been reviewed, and are as follows: White blood count 7.3, hemoglobin 11.4, hematocrit 37.6, platelets 170,000, sodium 138, potassium 3.9, chloride 104, BUN 30, creatinine 0.95, glucose 91, total protein 5.3, albumin 2.3. A recent culture is positive for Citrobacter koseri, and organism which has been isolated from the wound in the past as well. Dr. Liu, infectious disease specialist, has started the patient on Duricef 1 g twice daily for 4 weeks, with plans to decrease the dose for long-term suppression. The patient's management appears to be complicated due to his multiple pre-existing medical problems, debility, and his advanced age. A multidisciplinary approach will be to the patient's benefit. A lengthy discussion has been undertaken with the patient and his , who is at the bedside. The patient is likely not to be a candidate for removal of his prosthesis. Additionally, it is unlikely that antibiotics alone will resolve patient's infection, which appears to involve his left knee hardware. Furthermore, the patient himself declines any thought of surgical intervention. Therefore, it may be unlikely that the draining sinus and open wound in the left popliteal region will heal completely. A palliative approach is likely to be the option followed. It appears as though the patient and his are fully cognizant of the clinical concerns, and fully accepting that complete healing of the patient's wound may not occur. The patient has been advised to enhance his nutritional intake. The patient will return in 1 week for reassessment. Influenza vaccine was not administered today. The patient is not a smoker. Patient is 5 feet 10 inches tall. He he weighs 169 pounds. His BMI is 24.2, which is normal. This note was generated with [employer] software. It may contain incorrect words, spelling, and punctuation that were not noted in checking the note before signing.
[2020-01-18 09:35] VITALS: BP 106/62; PULSE 61; TEMP 36.2; BMI 23.8
--- NOTE | 2020-01-18 10:13 | HP.PCM_ITS ---
(1) Cerebrovascular accident (CVA) Status: Acute Qualifiers: Laterality of affected vessel: left Code(s): I63.9 - Cerebral infarction, unspecified (2) Infected prosthetic knee joint Status: Chronic Qualifiers: Encounter type: subsequent encounter Qualified Code(s): T84.59XD - Infection and inflammatory reaction due to other internal joint prosthesis, subsequent encounter; Z96.659 - Presence of unspecified artificial knee joint Code(s): T84.59XA - Infection and inflammatory reaction due to other internal joint prosthesis, initial encounter; Z96.659 - Presence of unspecified artificial knee joint (3) Ambulatory dysfunction Status: Chronic Code(s): R26.2 - Difficulty in walking, not elsewhere classified (4) Left popliteal fossa abscess Status: Chronic (5) Valvular heart disease Status: Chronic Code(s): I38 - Endocarditis, valve unspecified (6) S/P AVR (aortic valve replacement) Status: Chronic Code(s): Z95.2 - Presence of prosthetic heart valve (7) S/P mitral valve repair Status: Chronic Code(s): Z98.890 - Other specified postprocedural states (8) CHF (congestive heart failure) Status: Chronic Qualifiers: Code(s): I50.9 - Heart failure, unspecified Comment: Suspect systolic (9) HTN (hypertension) Status: Chronic Qualifiers: Code(s): I10 - Essential (primary) hypertension (10) HLD (hyperlipidemia) Status: Chronic Qualifiers: Code(s): E78.5 - Hyperlipidemia, unspecified (11) PAF (paroxysmal atrial fibrillation) Status: Chronic Code(s): I48.0 - Paroxysmal atrial fibrillation (12) Status cardiac pacemaker Status: Chronic Code(s): Z95.0 - Presence of cardiac pacemaker (13) BPH (benign prostatic hyperplasia) Status: Chronic Code(s): N40.0 - Benign prostatic hyperplasia without lower urinary tract symptoms (14) Debility Status: Chronic Code(s): R53.81 - Other malaise (15) Colon cancer Status: Chronic Code(s): C18.9 - Malignant neoplasm of colon, unspecified (16) GERD (gastroesophageal reflux disease) Status: Chronic Code(s): K21.9 - Gastro-esophageal reflux disease without esophagitis (17) Vitamin D deficiency Status: Chronic Code(s): E55.9 - Vitamin D deficiency, unspecified (18) Non-healing surgical wound Status: Chronic Qualifiers: Encounter type: initial encounter Qualified Code(s): T81.89XA - Other complications of procedures, not elsewhere classified, initial encounter Code(s): T81.89XA - Other complications of procedures, not elsewhere classified, initial encounter History of Present Illness Date of Service: 01/18/20 Chief Complaint: Draining abscess sinus of the left popliteal space History of Wound: This is an 84-year-old male, referred by his orthopedic surgeon, Dr. Haywood. In 2012, the patient underwent a left total knee replacement. 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 In October 2019, the patient developed a large abscess in the left popliteal space, which subsequently drained spontaneously. On October 27, 2019, the patient was taken to the operating room by Dr. Radames Haywood, who performed an irrigation and debridement of the left knee popliteal abscess. Since that time, the patient has had chronic drainage of purulent material. The draining sinus has failed to heal. He has recently been under the care of Dr. Liu, infectious disease specialist. The patient has been on long-term antibiotics, for infection suppression purposes. The patient is not felt to be a good candidate for major surgical intervention. The patient has suffered from a cerebrovascular accident within the last several weeks, which has adversely affected the right side of his body. As result, his ambulatory capacity has been impaired. Patient is able only to mobilize using a walker. Nursing staff at the patient's assisted living facility are involved in the patient's management. Past Medical History Past Medical History: Chronic Problems Left popliteal fossa abscess (Chronic) Valvular heart disease (Chronic) S/P AVR (aortic valve replacement) (Chronic) S/P mitral valve repair (Chronic) CHF (congestive heart failure) (Chronic) Suspect systolic HTN (hypertension) (Chronic) HLD (hyperlipidemia) (Chronic) PAF (paroxysmal atrial fibrillation) (Chronic) Status cardiac pacemaker (Chronic) BPH (benign prostatic hyperplasia) (Chronic) Debility (Chronic) Colon cancer (Chronic) GERD (gastroesophageal reflux disease) (Chronic) Hypokalemia (Chronic) Vitamin D deficiency (Chronic) Non-healing surgical wound (Chronic) Infected prosthetic knee joint (Chronic) Ambulatory dysfunction (Chronic) Surgical History: appendectomy, herniorrhaphy - Abdominal., pacemaker implantation, total hip arthroplasty - Left., total knee arthroplasty - Left., tonsillectomy, - - Colon cancer resection, liver cyst intervention, aortic valve replacement, left total knee repair, recent left posterior knee abscess I&D. Allergies/Adverse Reactions: Allergies soap Allergy (Verified 12/30/19 09:54) PT UNSURE OF REACTION RASH WHEN USES SOAPS FROM HOSPITALS Home Medications: Ambulatory Orders Medication Instructions Recorded Amiodarone HCl [Cordarone] 200 mg PO DAILY 10/26/19 Cholecalciferol (VIT D3) [Vitamin 1,000 unit PO DAILY 10/26/19 D3] Furosemide [Lasix] 80 mg PO DAILY 10/26/19 Metoprolol Succinate [Toprol Xl] 25 mg PO DAILY 10/26/19 Pantoprazole Sodium [Protonix] 40 mg PO BID 10/26/19 Potassium Chloride [Klor-Con M20] 30 meq PO DAILY 10/26/19 Simvastatin [Zocor] 40 mg PO QHS 10/26/19 Tamsulosin HCl [Flomax] 0.4 mg PO DAILY 10/26/19 Warfarin [Coumadin] 2 mg PO SUTUTHSA 10/26/19 traZODone [Desyrel] 100 mg PO QHS 10/26/19 Acetaminophen [Tylenol] 1,000 mg PO Q6H PRN PRN tab 11/10/19 Fluoxetine [Prozac] 10 mg PO DAILY #30 cap 11/10/19 Julián (unflavored) [Julián Packet] 1 packet PO BIDCM #60 packet 11/10/19 Ammonium Lactate [Amlactin] 57 gm TP BID 12/30/19 Amoxicillin 2,000 mg PO DAILY PRN 12/30/19 Loperamide HCl [Imodium A-D] 2 mg PO Q4H PRN PRN 12/30/19 Warfarin [Coumadin ([facility])] 1 mg PO MOWEFR 12/30/19 - Family History Maternal Heart Disease, Hypertension Paternal Heart Disease Lives: Spouse/ Significant Other Smoking Status: Never smoker Tobacco Use: Non-smoker Alcohol: None Drugs: None Review of Systems Constitutional: Denies: Chills, Fever, Weight Change Eyes: Denies: Pain, Vision Change HEENT: Denies: Difficulty Hearing, Difficulty Swallowing, Sinus Congestion Cardiovascular: Denies: Chest Pain, Palpitations Respiratory: Denies: Cough, Shortness of Breath Gastrointestinal: Denies: Diarrhea, Nausea, Vomiting Genitourinary: Denies: Dysuria, Hematuria Endocrine: Denies: Heat/ Cold Intolerance, Polydipsia, Polyuria Hematologic/ Lymphatic: Denies: Easy Bruising, Easy Bleeding - Physical Exam Vital Signs Temp Pulse Resp BP 97.2 F L 61 16 106/62 01/18/20 09:35 01/18/20 09:35 01/11/20 10:53 01/18/20 09:35 General: Alert, Oriented x3, Cooperative, No apparent distress, Well developed, Well nourished HEENT: Atraumatic, PERRLA, EOMI, Normocephalic Oral: Moist Mucosa Neck: No JVD Lungs: Normal air movement Abdomen: Non-Distended Extremities: No clubbing, No cyanosis, No Calf Tenderness, - - Slight swelling and edema noted in the patient's left lower extremity. Hyperpigmentation is noted distally in the gaiter area, chronic in nature. Addt'l Wound Findings: The sinus tract in the left popliteal space persists. Minimal drainage is noted. The depth appears to be approximately 4.5 cm, with tracking superiorly and anteriorly towards the knee joint itself. There is no periwound erythema, or other obvious sign of infection or cellulitis. Wound Measurements and Assessment WC - Nurse 1 - General Ulcer Measurement Start: 01/04/20 10:56 Freq: Status: Active Protocol: Activity Type Activity Date Activity User E-Sign Co-Sign Detail Recorded Client Recorded Date Recorded By Document 01/18/20 09:35 KR [id number] 01/18/20 09:44 JESUS 01/18/20 09:35 Wound Center Nurse 1 [Ulcer Assessment] #1- LEFT POST KNEE -Combined with other wound No -Current Size (cm) - Length 1.1 -Current Size (cm) - Width 1.3 -Current Size (cm) - Depth 0.1 -Total Square Cm 1.43 -Photo Taken No -Exudate Amt Medium -Exudate Type Serosanguineous -Wound Margin Distinct, Outline Attached -Granulation Amt Small (1-33%) -Granulation Quality [place] -Texture (Skylar-wound Skin Appearance) Assessed,Rash -Moisture (Skylar-wound Skin Appearance No Abnormality ) -Color (Skylar-wound Skin Appearance) No Abnormality -Temperature (Skylar-wound Skin No Abnormality Appearance) (Pt Warm) -Tenderness on Palpation (Skylar-wound No Skin Appearance) -Ulcer Cleansing Rinsed/ Irrigated with Saline -Foul Odor after Cleansing No -Anesthetic Used 4% Lidocaine Solution Musculoskeletal: Muscle Wasting - Lower extremities Neurological: Cranial nerves II-XII grossly intact, Neuro grossly intact Psych/Mental Status: Normal Affect, Appropriate, Alert and oriented to time, place, person, mood and affect Debridement Note Post-Debridement Measurements/Treatment - Nurse 2 - General Ulcer CM Notes Start: 01/04/20 10:56 Freq: Status: Active Protocol: Activity Type Activity Date Activity User E-Sign Co-Sign Detail Recorded Client Recorded Date Recorded By Document 01/04/20 16:23 PL [id number] 01/04/20 16:23 PL Document 01/11/20 18:17 PL [id number] 01/11/20 18:17 PL 01/04/20 01/11/20 16:23 18:17 Wound Center Nurse 2 #1- LEFT POST KNEE -Procedure Performed No No -Post Debridement (cm) - Length 0.3 -Post Debridement (cm) - Width 0.4 -Post Debridement (cm) - Depth 5 -Total Square (Post) (cm) 0.12 -Wound/Ulcer Outcome Not Healed Pain Scale: 0-10 Numeric Is Patient Pain Free? Yes Yes - Nurse 3 - General Ulcer D/C NN Start: 01/04/20 10:56 Freq: Status: Active Protocol: Activity Type Activity Date Activity User E-Sign Co-Sign Detail Recorded Client Recorded Date Recorded By Document 01/04/20 11:54 [facility] [id number] 01/04/20 11:55 [facility] Document 01/11/20 12:05 [id number] 01/11/20 12:06 DL 01/04/20 01/11/20 11:54 12:05 Wound Care Nurse 3 #1- LEFT POST KNEE -Ulcer Cleansing Rinsed/ Wound Cleanser Irrigated with Saline -Foul Odor after Cleansing No No -Primary Dressing Applied Nugauze, Plain Iodoform -Other Dressing 1/4 in gauze packng -Primary Dressing Covered/Secured with Dry Gauze & Dry Gauze, Roll Gauze, Secured with Secured with Tape Tape,Other -Other Covering abd -Nugauze, Plain Iodoform 1/4 1 Treatment Response Procedure Tolerated Well Pain Scale: 0-10 Numeric Is Patient Pain Free? Yes WC - Visit Discharge Discharge Condition Stable Stable Ambulatory Status Wheelchair Wheelchair Transportation Private Auto Private Auto Accompanied by Facility Type Color Stripper Care Facility Other assisted living Orders Sent Yes No debridement was completed today Assessment/Plan Active Problems Left popliteal fossa abscess (Chronic) Valvular heart disease (Chronic) S/P AVR (aortic valve replacement) (Chronic) S/P mitral valve repair (Chronic) CHF (congestive heart failure) (Chronic) Suspect systolic HTN (hypertension) (Chronic) HLD (hyperlipidemia) (Chronic) PAF (paroxysmal atrial fibrillation) (Chronic) Status cardiac pacemaker (Chronic) BPH (benign prostatic hyperplasia) (Chronic) Debility (Chronic) Colon cancer (Chronic) GERD (gastroesophageal reflux disease) (Chronic) Vitamin D deficiency (Chronic) Non-healing surgical wound (Chronic) Cerebrovascular accident (CVA) (Acute) Infected prosthetic knee joint (Chronic) Ambulatory dysfunction (Chronic) Assessment: This is an 84-year-old debilitated male with multiple pre-existing medical problems who presented with an infected left prosthetic knee joint and a draining sinus in the left popliteal space. The prosthetic knee joint was placed in 2012, and the patient presented only within recent months with apparent infection involving the knee joint, manifest as a draining sinus in the left popliteal space. The patient is known to both Dr. Haywood and Dr. Eric luu. The patient was evaluated by Dr. Liu recently, and Dr. Liu has documented we will start him on Duricef 1 g twice daily for 4 weeks, then plan will be to decrease dose for long-term suppression. Plan: We are to continue the use of saline moistened 1/4 inch Nu Gauze into the sinus tract on a daily basis. Nursing staff at the patient's assisted living [facility] will perform these daily packing changes. Recent laboratory results have been reviewed, and are as follows: White blood count 7.3, hemoglobin 11.4, hematocrit 37.6, platelets 170,000, sodium 138, potassium 3.9, chloride 104, BUN 30, creatinine 0.95, glucose 91, total protein 5.3, albumin 2.3. A recent culture is positive for Citrobacter koseri, and organism which has been isolated from the wound in the past as well. Dr. Liu, infectious disease specialist, has started the patient on Duricef 1 g twice daily for 4 weeks, with plans to decrease the dose for long-term suppression. The patient's management appears to be complicated due to his multiple pre-existing medical problems, debility, and his advanced age. A multidisciplinary approach will be to the patient's benefit. A lengthy discussion has been undertaken with the patient and his , who is at the bedside. The patient is likely not to be a candidate for removal of his prosthesis. Additionally, it is unlikely that antibiotics alone will resolve patient's infection, which appears to involve his left knee hardware. Furthermore, the patient himself declines any thought of surgical intervention. Therefore, it may be unlikely that the draining sinus and open wound in the left popliteal region will heal completely. A palliative approach is likely to be the option followed. It appears as though the patient and his are fully cognizant of the clinical concerns, and fully accepting that complete healing of the patient's wound may not occur. The patient has been advised to enhance his nutritional intake. The patient will return in 2 weeks for reassessment. Physical therapy at the patient's assisted living facility has been initiated, and appears to be progressing well thus far. A well-balanced and nutritional diet has been recommended. Influenza vaccine was not administered today. The patient is not a smoker. Patient is 5 feet 10 inches tall. He he weighs 169 pounds. His BMI is 24.2, which is normal.
== END 2020-01-31 23:59 ==
LOC: WC 09:30
PROVIDERS: PCP Family Medicine; Visit Provider Surgery
DX: T84.59XA Infection and inflammatory reaction due to other internal joint prosthesis, initial encounter (principal); R26.2 Difficulty in walking, not elsewhere classified; I38 Endocarditis, valve unspecified; E78.5 Hyperlipidemia, unspecified; I48.0 Paroxysmal atrial fibrillation; N40.0 Benign prostatic hyperplasia without lower urinary tract symptoms; K21.9 Gastro-esophageal reflux disease without esophagitis; E55.9 Vitamin D deficiency, unspecified; C18.9 Malignant neoplasm of colon, unspecified; E87.6 Hypokalemia; Z95.0 Presence of cardiac pacemaker; Z95.2 Presence of prosthetic heart valve; Z96.659 Presence of unspecified artificial knee joint; Z98.890 Other specified postprocedural states; I11.0 Hypertensive heart disease with heart failure; I50.9 Heart failure, unspecified; Z79.01 Long term (current) use of anticoagulants; Z82.49 Family history of ischemic heart disease and other diseases of the circulatory system; Z85.038 Personal history of other malignant neoplasm of large intestine; Z86.73 Personal history of transient ischemic attack (TIA), and cerebral infarction without residual deficits; Z96.652 Presence of left artificial knee joint
CPT/HCPCS: 99212; G0463

== ENCOUNTER 2020-02-08 10:01 | Outpatient (RCR) | payer MEDICARE, SELFPAY ==
[2020-02-01 00:38] VITALS: BP 106/62; PULSE 61; RESP 16; TEMP 36.2
[2020-02-08 10:05] VITALS: BP 114/58; PULSE 62; RESP 18; TEMP 35.7; BMI 23.8
--- NOTE | 2020-02-08 11:33 | HP.PCM_ITS ---
(1) Left popliteal fossa abscess Status: Chronic (2) Valvular heart disease Status: Chronic Code(s): I38 - Endocarditis, valve unspecified (3) S/P AVR (aortic valve replacement) Status: Chronic Code(s): Z95.2 - Presence of prosthetic heart valve (4) S/P mitral valve repair Status: Chronic Code(s): Z98.890 - Other specified postprocedural states (5) CHF (congestive heart failure) Status: Chronic Qualifiers: Code(s): I50.9 - Heart failure, unspecified Comment: Suspect systolic (6) HTN (hypertension) Status: Chronic Qualifiers: Code(s): I10 - Essential (primary) hypertension (7) HLD (hyperlipidemia) Status: Chronic Qualifiers: Code(s): E78.5 - Hyperlipidemia, unspecified (8) PAF (paroxysmal atrial fibrillation) Status: Chronic Code(s): I48.0 - Paroxysmal atrial fibrillation (9) Status cardiac pacemaker Status: Chronic Code(s): Z95.0 - Presence of cardiac pacemaker (10) BPH (benign prostatic hyperplasia) Status: Chronic Code(s): N40.0 - Benign prostatic hyperplasia without lower urinary tract symptoms (11) Debility Status: Chronic Code(s): R53.81 - Other malaise (12) Colon cancer Status: Chronic Code(s): C18.9 - Malignant neoplasm of colon, unspecified (13) GERD (gastroesophageal reflux disease) Status: Chronic Code(s): K21.9 - Gastro-esophageal reflux disease without esophagitis (14) Hypokalemia Status: Chronic Code(s): E87.6 - Hypokalemia (15) Vitamin D deficiency Status: Chronic Code(s): E55.9 - Vitamin D deficiency, unspecified (16) Non-healing surgical wound Status: Chronic Qualifiers: Code(s): T81.89XA - Other complications of procedures, not elsewhere classified, initial encounter (17) Cerebrovascular accident (CVA) Status: Chronic Code(s): I63.9 - Cerebral infarction, unspecified (18) Infected prosthetic knee joint Status: Chronic Qualifiers: Code(s): T84.59XA - Infection and inflammatory reaction due to other internal joint prosthesis, initial encounter; Z96.659 - Presence of unspecified art ificial knee joint (19) Ambulatory dysfunction Status: Chronic Code(s): R26.2 - Difficulty in walking, not elsewhere classified History of Present Illness Date of Service: 02/08/20 Chief Complaint: Draining abscess sinus of the left popliteal space History of Wound: This is an 84-year-old male, referred by his orthopedic surgeon, Dr. Haywood. In 2012, the patient underwent a left total knee replacement. 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 In October 2019, the patient developed a large abscess in the left popliteal space, which subsequently drained spontaneously. On October 27, 2019, the patient was taken to the operating room by Dr. Radames Haywood, who performed an irrigation and debridement of the left knee popliteal abscess. Since that time, the patient has had chronic drainage of purulent material. The draining sinus has failed to heal. He has recently been under the care of Dr. Liu, infectious disease specialist. The patient has been on long-term antibiotics, for infection suppression purposes. The patient is not felt to be a good candidate for major surgical intervention. The patient has suffered from a cerebrovascular accident within the last several weeks, which has adversely affected the right side of his body. As result, his ambulatory capacity has been impaired. Patient is able only to mobilize using a walker. Nursing staff at the patient's assisted living facility are involved in the patient's management. Past Medical History Past Medical History: Chronic Problems Left popliteal fossa abscess (Chronic) Valvular heart disease (Chronic) S/P AVR (aortic valve replacement) (Chronic) S/P mitral valve repair (Chronic) CHF (congestive heart failure) (Chronic) Suspect systolic HTN (hypertension) (Chronic) HLD (hyperlipidemia) (Chronic) PAF (paroxysmal atrial fibrillation) (Chronic) Status cardiac pacemaker (Chronic) BPH (benign prostatic hyperplasia) (Chronic) Debility (Chronic) Colon cancer (Chronic) GERD (gastroesophageal reflux disease) (Chronic) Hypokalemia (Chronic) Vitamin D deficiency (Chronic) Non-healing surgical wound (Chronic) Cerebrovascular accident (CVA) (Chronic) Infected prosthetic knee joint (Chronic) Ambulatory dysfunction (Chronic) Surgical History: appendectomy, herniorrhaphy - Abdominal., pacemaker implantation, total hip arthroplasty - Left., total knee arthroplasty - Left., tonsillectomy, - - Colon cancer resection, liver cyst intervention, aortic valve replacement, left total knee repair, recent left posterior knee abscess I&D. Allergies/Adverse Reactions: Allergies soap Allergy (Verified 12/30/19 09:54) PT UNSURE OF REACTION RASH WHEN USES SOAPS FROM HOSPITALS Home Medications: Ambulatory Orders Medication Instructions Recorded Amiodarone HCl [Cordarone] 200 mg PO DAILY 10/26/19 Cholecalciferol (VIT D3) [Vitamin 1,000 unit PO DAILY 10/26/19 D3] Furosemide [Lasix] 80 mg PO DAILY 10/26/19 Metoprolol Succinate [Toprol Xl] 25 mg PO DAILY 10/26/19 Pantoprazole Sodium [Protonix] 40 mg PO BID 10/26/19 Potassium Chloride [Klor-Con M20] 30 meq PO DAILY 10/26/19 Simvastatin [Zocor] 40 mg PO QHS 10/26/19 Tamsulosin HCl [Flomax] 0.4 mg PO DAILY 10/26/19 Warfarin [Coumadin] 2 mg PO SUTUTHSA 10/26/19 traZODone [Desyrel] 100 mg PO QHS 10/26/19 Acetaminophen [Tylenol] 1,000 mg PO Q6H PRN PRN tab 11/10/19 Fluoxetine [Prozac] 10 mg PO DAILY #30 cap 11/10/19 Julián (unflavored) [Julián Packet] 1 packet PO BIDCM #60 packet 11/10/19 Ammonium Lactate [Amlactin] 57 gm TP BID 12/30/19 Amoxicillin 2,000 mg PO DAILY PRN 12/30/19 Loperamide HCl [Imodium A-D] 2 mg PO Q4H PRN PRN 12/30/19 Warfarin [Coumadin ([facility])] 1 mg PO MOWEFR 12/30/19 - Family History Maternal Heart Disease, Hypertension Paternal Heart Disease Smoking Status: Never smoker Tobacco Use: Non-smoker Review of Systems Constitutional: Denies: Chills, Fever, Weight Change Eyes: Denies: Pain, Vision Change HEENT: Denies: Difficulty Hearing, Difficulty Swallowing, Sinus Congestion Cardiovascular: Denies: Chest Pain, Palpitations Respiratory: Denies: Cough, Shortness of Breath Gastrointestinal: Denies: Diarrhea, Nausea, Vomiting Genitourinary: Denies: Dysuria, Hematuria Endocrine: Denies: Heat/ Cold Intolerance, Polydipsia, Polyuria Hematologic/ Lymphatic: Denies: Easy Bruising, Easy Bleeding - Physical Exam Vital Signs Temp Pulse Resp BP 96.2 F L 62 18 114/58 L 02/08/20 10:05 02/08/20 10:05 02/08/20 10:05 02/08/20 10:05 General: Alert, Oriented x3, Cooperative, No apparent distress, Well developed, Well nourished HEENT: Atraumatic, PERRLA, EOMI, Normocephalic Oral: Moist Mucosa Neck: No JVD Lungs: Normal air movement Abdomen: Non-Distended Extremities: No clubbing, No cyanosis, No edema, No Calf Tenderness, - - The draining sinus tract in the patient's left popliteal area appears to be completely healed. There is no erythema. There is no sign of infection or cellulitis. There is no drainage. Skin: No rashes Wound Measurements and Assessment WC - Nurse 1 - General Ulcer Measurement Start: 02/08/20 10:05 Freq: Status: Discharge Protocol: Activity Type Activity Date Activity User E-Sign Co-Sign Detail Recorded Client Recorded Date Recorded By Document 02/08/20 10:05 MW [id number] 02/08/20 10:07 MW Edit Status 02/08/20 11:02 JANICE DAGILL Active=>Discharge [id number] 02/08/20 11:02 JANICE DAALIDAON 02/08/20 10:05 Wound Center Nurse 1 [Ulcer Assessment] #1- LEFT POST KNEE -Combined with other wound No -Current Size (cm) - Length 0.1 -Current Size (cm) - Width 0.1 -Current Size (cm) - Depth 0.1 -Total Square Cm 0.01 -Epithelialization Large 67-100% -Tunneling No -Undermining/Tunneling No -Circular Undermining No -Exudate Amt None Present -Granulation Amt None Present (0 %) -Granulation Quality N/A -Slough/Fibrin No -Necrosis Amt None Present (0 %) -Texture (Skylar-wound Skin Appearance) Assessed, Scarring -Moisture (Skylar-wound Skin Appearance No Abnormality, ) Assessed -Color (Skylar-wound Skin Appearance) No Abnormality, Assessed -Temperature (Skylar-wound Skin No Abnormality Appearance) (Pt Warm) -Tenderness on Palpation (Skylar-wound Yes Skin Appearance) -Ulcer Cleansing Rinsed/ Irrigated with Saline [Edema Assessment] -Lower Limb Edema Present No WC - Nurse 2 - General Ulcer CM Notes Start: 02/08/20 10:05 Freq: Status: Discharge Protocol: Activity Type Activity Date Activity User E-Sign Co-Sign Detail Recorded Client Recorded Date Recorded By Edit Status 02/08/20 11:02 BKG DAEMON Active=>Discharge [id number] 02/08/20 11:02 BKG DAEMON WC - Nurse 3 - General Ulcer D/C NN Start: 02/08/20 10:05 Freq: Status: Discharge Protocol: Activity Type Activity Date Activity User E-Sign Co-Sign Detail Recorded Client Recorded Date Recorded By Document 02/08/20 10:49 MW [id number] 02/08/20 10:50 MW Edit Status 02/08/20 11:02 BKG DAEMON Active=>Discharge [id number] 02/08/20 11:02 BKG DAEMON 02/08/20 10:49 Teaching: Wound Center [Wound Center Education] (Items with an * have Printed Materials Available- Please identify what is given to patient under the Teaching materials given to patient and caregiver Section. Discharge Instructions -Person Taught Patient,Family -Teaching Method Discussion -Response to teaching Verbalize understanding WC - Visit Discharge [Visit Discharge Information] -Discharge Condition Stable -Ambulatory Status Wheelchair -Transportation Private Auto -Accompanied by -Medication Reconcilliation completed No & provided to patient/care provider -Clinical Summary of Care Provided Yes -Notes: healed, discharged Neurological: Cranial nerves II-XII grossly intact, Neuro grossly intact Psych/Mental Status: Normal Affect, Appropriate, Alert and oriented to time, place, person, mood and affect Debridement Note Post-Debridement Measurements/Treatment WC - Nurse 3 - General Ulcer D/C NN Start: 02/08/20 10:05 Freq: Status: Discharge Protocol: Activity Type Activity Date Activity User E-Sign Co-Sign Detail Recorded Client Recorded Date Recorded By Document 02/08/20 10:49 MW [id number] 02/08/20 10:50 MW 02/08/20 10:49 Teaching: Wound Center Discharge Instructions -Person Taught Patient,Family -Teaching Method Discussion -Response to teaching Verbalize understanding WC - Visit Discharge Discharge Condition Stable Ambulatory Status Wheelchair Transportation Private Auto Accompanied by Medication Reconcilliation completed & No provided to patient/care provider Clinical Summary of Care Provided Yes Notes: healed, discharged No debridement was completed today - The patient's wound appears healed. Assessment/Plan Assessment: This is an 84-year-old debilitated male with multiple pre-existing medical problems who presented with an infected left prosthetic knee joint and a draining sinus in the left popliteal space. The prosthetic knee joint was placed in 2012, and the patient presented only within recent months with apparent infection involving the knee joint, manifest as a draining sinus in the left popliteal space. The patient is known to both Dr. Haywood and Dr. Liu. The patient was evaluated by Dr. Liu recently, and Dr. Liu has documented we will start him on Duricef 1 g twice daily for 4 weeks, then plan will be to decrease dose for long-term suppression. Plan: Patient's left popliteal wound appears to be completely healed. Therefore, the patient is to be discharged. A lengthy discussion has been undertaken with the patient and with the patient's , at the bedside, regarding the concerns about long-term expectations. It is highly suspected that the patient's underlying prosthesis is colonized by bacteria, which implies that the patient may well have infectious complications in the future. As purulence increases within the joint cavity, it may ultimately drain once again, with manifestation similar to those which were present at his initial presentation. In such case, it has been suggested that the patient seek evaluation by his orthopedic surgeon, and any long-term wound management can be then referred to our facility. The patient has an appointment tomorrow with Dr. Liu, his infectious disease specialist. Long-term antibiotics suppression is anticipated. The patient has been encouraged to keep that appointment. He has been encouraged to maintain adequate nutritional intake. He will be discharged, for follow-up henceforth on an as-needed basis. For reasons previously outlined, the patient is likely not to be a candidate for removal of his prosthesis. Additionally, it is unlikely that antibiotics alone will resolve patient's infection, which appears to involve his left knee hardware. Furthermore, the patient himself dismisses any thought of surgical intervention. It may be that the patient will experience recurring episodes of drainage from the infection within his joint. Multidisciplinary management and a palliative approach is likely to be the patient's best option. It appears as though the patient and his are fully cognizant of the clinical concerns. Physical therapy at the patient's assisted living facility has been initiated, and appears to be progressing well thus far. The patient will be discharged and follow-up henceforth as needed. Influenza vaccine was not administered today. The patient is not a smoker. Patient is 5 feet 10 inches tall. He he weighs 169 pounds. His BMI is 24.2, which is normal.
== END 2020-02-08 11:01 | disposition home or self-care (01) ==
LOC: WC 10:01
PROVIDERS: PCP Family Medicine; Visit Provider Surgery
DX: Z09 Encounter for follow-up examination after completed treatment for conditions other than malignant neoplasm (principal); I50.9 Heart failure, unspecified; I11.0 Hypertensive heart disease with heart failure; Z95.2 Presence of prosthetic heart valve; E78.5 Hyperlipidemia, unspecified; I48.0 Paroxysmal atrial fibrillation; N40.0 Benign prostatic hyperplasia without lower urinary tract symptoms; K21.9 Gastro-esophageal reflux disease without esophagitis; Z96.652 Presence of left artificial knee joint; E55.9 Vitamin D deficiency, unspecified; Z79.899 Other long term (current) drug therapy; Z79.01 Long term (current) use of anticoagulants
CPT/HCPCS: 99212; G0463

== ENCOUNTER 2020-04-25 08:48 | Outpatient (RCR) | payer MEDICARE, SELFPAY ==
[2020-04-25 09:06] VITALS: BP 111/55; PULSE 50; RESP 16; TEMP 36.2; BMI 24.3
--- NOTE | 2020-04-25 13:58 | HP.PCM_ITS ---
(1) Left popliteal fossa abscess Status: Chronic (2) Valvular heart disease Status: Chronic Code(s): I38 - Endocarditis, valve unspecified (3) S/P AVR (aortic valve replacement) Status: Chronic Code(s): Z95.2 - Presence of prosthetic heart valve (4) S/P mitral valve repair Status: Chronic Code(s): Z98.890 - Other specified postprocedural states (5) CHF (congestive heart failure) Status: Chronic Qualifiers: Code(s): I50.9 - Heart failure, unspecified Comment: Suspect systolic (6) HTN (hypertension) Status: Chronic Qualifiers: Code(s): I10 - Essential (primary) hypertension (7) HLD (hyperlipidemia) Status: Chronic Qualifiers: Code(s): E78.5 - Hyperlipidemia, unspecified (8) PAF (paroxysmal atrial fibrillation) Status: Chronic Code(s): I48.0 - Paroxysmal atrial fibrillation (9) Status cardiac pacemaker Status: Chronic Code(s): Z95.0 - Presence of cardiac pacemaker (10) BPH (benign prostatic hyperplasia) Status: Chronic Code(s): N40.0 - Benign prostatic hyperplasia without lower urinary tract symptoms (11) Debility Status: Chronic Code(s): R53.81 - Other malaise (12) Colon cancer Status: Chronic Code(s): C18.9 - Malignant neoplasm of colon, unspecified (13) GERD (gastroesophageal reflux disease) Status: Chronic Code(s): K21.9 - Gastro-esophageal reflux disease without esophagitis (14) Hypokalemia Status: Chronic Code(s): E87.6 - Hypokalemia (15) Vitamin D deficiency Status: Chronic Code(s): E55.9 - Vitamin D deficiency, unspecified (16) Non-healing surgical wound Status: Chronic Qualifiers: Code(s): T81.89XA - Other complications of procedures, not elsewhere classified, initial encounter (17) Cerebrovascular accident (CVA) Status: Chronic Code(s): I63.9 - Cerebral infarction, unspecified (18) Infected prosthetic knee joint Status: Chronic Qualifiers: Encounter type: subsequent encounter Code(s): T84.59XA - Infection and inflammatory reaction due to other internal joint prosthesis, initial encounter; Z96.659 - Presence of unspecified artificial knee joint (19) Ambulatory dysfunction Status: Chronic Code(s): R26.2 - Difficulty in walking, not elsewhere classified History of Present Illness Date of Service: 04/25/20 Chief Complaint: Draining abscess sinus of the left popliteal space History of Wound: This is an 84-year-old male who was a prior patient here in December 2019 through February 2020. He was treated for an infected, draining sinus in the left popliteal space, thought to be due to an infected left knee prosthesis. Using a multidisciplinary approach, conservative treatment measures, the draining sinus eventually healed, and the patient was discharged and his last visit on February 08, 2020. At the time of his discharge, however, a lengthy and detailed discussion was undertaken with the patient and with his as to the concerns regarding long-term prognosis, and suspicion that the infected draining sinus would recur as a result of underlying infected of the prosthetic joint. Indeed, as had been feared, the patient returns today with a draining sinus from the left popliteal space at the same site as previously. The patient has been referred by Dr. Liu, who has maintained medical oversight of the patient's condition. It appears as though the area of involvement drained spontaneously approximately 10 days ago. He subsequently was evaluated by Dr. Liu by means of telehealth, and was switched from antibiotic mono-therapy to dual therapy, and is currently taking Augmentin and doxycycline as prescribed by Dr. Liu. The patient and his have interacted with Dr. Haywood recently, who offered surgical options which included joint removal and subsequent replacement, or leg amputation. The patient is resolute in his desire to avoid surgical intervention, and is also considered a high surgical risk for any major surgery. His recent medical history is detailed below. . In 2012, the patient underwent a left total knee replacement. 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 In October 2019, the patient developed a large abscess in the left popliteal space, which subsequently drained spontaneously. On October 27, 2019, the patient was taken to the operating room by Dr. Radames Haywood, who performed an irrigation and debridement of the left knee popliteal abscess. Since that time, the patient has had chronic drainage of purulent material. The draining sinus has failed to heal. He has recently been under the care of Dr. Liu, infectious disease specialist. The patient has been on long-term antibiotics, for infection suppression purposes. The patient is not felt to be a good candidate for major surgical intervention. The patient has suffered from a cerebrovascular accident within the last several weeks, which has adversely affected the right side of his body. As result, his ambulatory capacity has been impaired. Patient is able only to mobilize using a walker. Nursing staff at the patient's assisted living facility are involved in the patient's management. Past Medical History Past Medical History: Chronic Problems Left popliteal fossa abscess (Chronic) Valvular heart disease (Chronic) S/P AVR (aortic valve replacement) (Chronic) S/P mitral valve repair (Chronic) CHF (congestive heart failure) (Chronic) Suspect systolic HTN (hypertension) (Chronic) HLD (hyperlipidemia) (Chronic) PAF (paroxysmal atrial fibrillation) (Chronic) Status cardiac pacemaker (Chronic) BPH (benign prostatic hyperplasia) (Chronic) Debility (Chronic) Colon cancer (Chronic) GERD (gastroesophageal reflux disease) (Chronic) Hypokalemia (Chronic) Vitamin D deficiency (Chronic) Non-healing surgical wound (Chronic) Cerebrovascular accident (CVA) (Chronic) Infected prosthetic knee joint (Chronic) Ambulatory dysfunction (Chronic) Surgical History: appendectomy, herniorrhaphy - Abdominal., pacemaker implantation, total hip arthroplasty - Left., total knee arthroplasty - Left., tonsillectomy, - - Colon cancer resection, liver cyst intervention, aortic valve replacement, left total knee repair, recent left posterior knee abscess I&D. Allergies/Adverse Reactions: Allergies soap Allergy (Verified 04/25/20 09:17) PT UNSURE OF REACTION RASH WHEN USES SOAPS FROM HOSPITALS Home Medications: Ambulatory Orders Medication Instructions Recorded Amiodarone HCl [Cordarone] 200 mg PO DAILY 10/26/19 Cholecalciferol (VIT D3) [Vitamin 1,000 unit PO DAILY 10/26/19 D3] Furosemide [Lasix] 80 mg PO DAILY 10/26/19 Metoprolol Succinate [Toprol Xl] 25 mg PO DAILY 10/26/19 Pantoprazole Sodium [Protonix] 40 mg PO BID 10/26/19 Potassium Chloride [Klor-Con M20] 30 meq PO DAILY 10/26/19 Simvastatin [Zocor] 40 mg PO QHS 10/26/19 Tamsulosin HCl [Flomax] 0.4 mg PO DAILY 10/26/19 Warfarin [Coumadin] 2 mg PO SUTUTHSA 10/26/19 traZODone [Desyrel] 100 mg PO QHS 10/26/19 Acetaminophen [Tylenol] 1,000 mg PO Q6H PRN PRN tab 11/10/19 Fluoxetine [Prozac] 10 mg PO DAILY #30 cap 11/10/19 Julián (unflavored) [Julián Packet] 1 packet PO BIDCM #60 packet 11/10/19 Ammonium Lactate [Amlactin] 57 gm TP BID 12/30/19 Amoxicillin 2,000 mg PO DAILY PRN 12/30/19 Loperamide HCl [Imodium A-D] 2 mg PO Q4H PRN PRN 12/30/19 Warfarin [Coumadin ([facility]KC)] 1 mg PO MOWEFR 12/30/19 Amoxicillin/Potassium Clav 1 ea PO BID 04/25/20 [Amox-Clav 875-125 mg Tablet] Doxycycline Hyclate 100 mg PO BID 04/25/20 Hydrocortisone 2.5% Crm [Hytone] 1 applic TOPICAL BID PRN 04/25/20 L.acidoph,Paracasei, B.lactis 250 mg PO DAILY 04/25/20 [Probiotic] - Family History Maternal Heart Disease, Hypertension Paternal Heart Disease Lives: Spouse/ Significant Other Smoking Status: Never smoker Review of Systems Constitutional: Denies: Chills, Fever, Weight Change Eyes: Denies: Pain, Vision Change HEENT: Denies: Difficulty Hearing, Difficulty Swallowing, Sinus Congestion Cardiovascular: Denies: Chest Pain, Palpitations Respiratory: Denies: Cough, Shortness of Breath Gastrointestinal: Denies: Diarrhea, Nausea, Vomiting Genitourinary: Denies: Dysuria, Hematuria Endocrine: Denies: Heat/ Cold Intolerance, Polydipsia, Polyuria Hematologic/ Lymphatic: Denies: Easy Bruising, Easy Bleeding - Physical Exam Vital Signs Temp Pulse Resp BP 97.1 F L 50 L 16 111/55 L 04/25/20 09:06 04/25/20 09:06 04/25/20 09:06 04/25/20 09:06 General: Alert, Oriented x3, Cooperative, No apparent distress, Well developed, Well nourished HEENT: Atraumatic, PERRLA, EOMI, Normocephalic Oral: Moist Mucosa Neck: No JVD Lungs: Normal air movement Abdomen: Non-Distended Extremities: No clubbing, No cyanosis, No edema, No Calf Tenderness, - - Section of the left popliteal space reveals a draining sinus. The opening is approximately 2 to 3 mm in diameter. Gentle probing reveals a depth of approximately 38 mm. The tract appears to extend towards the joint space. Manual compression produces purulent drainage from the site. Addt'l Wound Findings: Swab cultures of the draining sinus have been obtained for both aerobic and anaerobic growth. Wound Measurements and Assessment WC - Nurse 1 - General Ulcer Measurement Start: 04/25/20 09:06 Freq: Status: Active Protocol: Activity Type Activity Date Activity User E-Sign Co-Sign Detail Recorded Client Recorded Date Recorded By Document 04/25/20 09:06 [facility] [id number] 04/25/20 09:15 [facility] 04/25/20 09:06 Wound Center Nurse 1 [Ulcer Assessment] #2- L POST KNEE -Combined with other wound No -Current Size (cm) - Length 0.4 -Current Size (cm) - Width 0.6 -Current Size (cm) - Depth 2.8 -Total Square Cm 0.24 -Date of Last Picture (Recall this 04/25/20 field) -Photo Taken Yes -Epithelialization None Present -Tunneling No -Undermining/Tunneling No -Circular Undermining No -Exudate Amt Large -Exudate Type Purulent -Wound Margin Distinct, Outline Attached -Granulation Amt Small (1-33%) -Granulation Quality Red -Slough/Fibrin Yes -Necrosis Amt Large (67-100%) -Necrotic Tissue Type Adherent Slough -Texture (Skylar-wound Skin Appearance) Assessed, Scarring -Moisture (Skylar-wound Skin Appearance Assessed ) -Color (Skylar-wound Skin Appearance) Assessed -Temperature (Skylar-wound Skin No Abnormality Appearance) (Pt Warm) -Tenderness on Palpation (Skylar-wound No Skin Appearance) -Ulcer Cleansing Rinsed/ Irrigated with Saline -Foul Odor after Cleansing No [Edema Assessment] -Lower Limb Edema Present Yes -Left Calf (cm) 38 -Left Ankle (cm) 25.6 WC - Nurse 2 - General Ulcer CM Notes Start: 04/25/20 09:06 Freq: Status: Active Protocol: Activity Type Activity Date Activity User E-Sign Co-Sign Detail Recorded Client Recorded Date Recorded By Document 04/25/20 10:30 PL [id number] 04/25/20 10:31 PL 04/25/20 10:30 Wound Center Nurse 2 [Procedure/Treatment] #2- L POST KNEE -Procedure Performed No -Post Debridement (cm) - Length 0.9 -Post Debridement (cm) - Width 0.8 -Post Debridement (cm) - Depth 3.8 -Total Square (Post) (cm) 0.72 -Wound/Ulcer Outcome Not Healed -Ulcer Cleansing Rinsed/ Irrigated with Saline -Foul Odor after Cleansing No [See Physician Procedure note for Specifics] Pain Scale: 0-10 Numeric [Pain] -Is Patient Pain Free? Yes - Nurse 3 - General Ulcer D/C NN Start: 04/25/20 09:06 Freq: Status: Active Protocol: Activity Type Activity Date Activity User E-Sign Co-Sign Detail Recorded Client Recorded Date Recorded By Document 04/25/20 09:43 MW [id number] 04/25/20 09:44 MW 04/25/20 09:43 Wound Care Nurse 3 [Wound Dressing] #2- L POST KNEE -Ulcer Cleansing Rinsed/ Irrigated with Saline -Foul Odor after Cleansing No -Negative Pressure Wound Therapy N/A -Primary Dressing Applied Nugauze, Plain Iodoform -Primary Dressing Covered/Secured Dry Gauze & with Roll Gauze, Secured with Tape -Nugauze, Plain Iodoform 1/ 1 [Compression Applied] Left -Lotion applied to leg before No compression wrap -Compression Wrap David Wrap [Post Procedure Tolerated] -Treatment Response Procedure Tolerated Well Teaching: Wound Center [Wound Center Education] (Items with an * have Printed Materials Available- Please identify what is given to patient under the Teaching materials given to patient and caregiver Section. Dressing Your Wound -Person Taught Patient,Family -Teaching Method Discussion -Response to teaching Verbalize understanding WC - Visit Discharge [Visit Discharge Information] -Discharge Condition Stable -Ambulatory Status Wheelchair -Transportation Private Auto -Accompanied by AND DAUGHTER -Medication Reconcilliation completed No & provided to patient/care provider -Clinical Summary of Care Provided Yes Neurological: Cranial nerves II-XII grossly intact, Neuro grossly intact Psych/Mental Status: Normal Affect, Appropriate, Alert and oriented to time, place, person, mood and affect Debridement Note Post-Debridement Measurements/Treatment WC - Nurse 2 - General Ulcer CM Notes Start: 04/25/20 09:06 Freq: Status: Active Protocol: Activity Type Activity Date Activity User E-Sign Co-Sign Detail Recorded Client Recorded Date Recorded By Document 04/25/20 10:30 PL [id number] 04/25/20 10:31 PL 04/25/20 10:30 Wound Center Nurse 2 #2- L POST KNEE -Procedure Performed No -Post Debridement (cm) - Length 0.9 -Post Debridement (cm) - Width 0.8 -Post Debridement (cm) - Depth 3.8 -Total Square (Post) (cm) 0.72 -Wound/Ulcer Outcome Not Healed -Ulcer Cleansing Rinsed/ Irrigated with Saline -Foul Odor after Cleansing No Pain Scale: 0-10 Numeric Is Patient Pain Free? Yes - Nurse 3 - General Ulcer D/C NN Start: 04/25/20 09:06 Freq: Status: Active Protocol: Activity Type Activity Date Activity User E-Sign Co-Sign Detail Recorded Client Recorded Date Recorded By Document 04/25/20 09:43 MW [id number] 04/25/20 09:44 MW 04/25/20 09:43 Wound Care Nurse 3 #2- L POST KNEE -Ulcer Cleansing Rinsed/ Irrigated with Saline -Foul Odor after Cleansing No -Negative Pressure Wound Therapy N/A -Primary Dressing Applied Nugauze, Plain Iodoform -Primary Dressing Covered/Secured with Dry Gauze & Roll Gauze, Secured with Tape -Nugauze, Plain Iodoform 1/4 1 Left -Lotion applied to leg before No compression wrap -Compression Wrap David Wrap Treatment Response Procedure Tolerated Well Teaching: Wound Center Dressing Your Wound -Person Taught Patient,Family -Teaching Method Discussion -Response to teaching Verbalize understanding WC - Visit Discharge Discharge Condition Stable Ambulatory Status Wheelchair Transportation Private Auto Accompanied by AND DAUGHTER Medication Reconcilliation completed & No provided to patient/care provider Clinical Summary of Care Provided Yes No debridement was completed today Assessment/Plan Assessment: This is an 84-year-old debilitated male with multiple pre-existing medical problems who presented with an infected left prosthetic knee joint and a draining sinus in the left popliteal space. The prosthetic knee joint was placed in 2012, and the patient presented only within recent months with apparent infection involving the knee joint, manifest as a draining sinus in the left popliteal space. The patient is known to both Dr. Haywood and Dr. Lui. The patient was evaluated by Dr. Liu recently, and Dr. Liu has prescribed dual antibiotic therapy, including Augmentin and doxycycline. Plan: We are to resume packing of the infected sinus using 1/4 inch Nu Gauze. This is to be performed by the patient's on a daily basis. Patient is to continue the dual antibiotic therapy as prescribed by Dr. Liu. Swab cultures have been obtained, for aerobic and anaerobic bacterial growth. These results will be awaited. In addition, recent cultures have been obtained at [facility]. These results are not available today, but presumably have been reviewed by Dr. iLu recently. Patient is to return in 1 week. He will be follow-up henceforth on a serial basis. We have again discussed issues regarding long-term expectations. It is highly suspected that the patient's underlying prosthesis is colonized by bacteria, which is unlikely to be completely eradicated by antibiotic treatment alone. Even if the sinus tract were to heal, it is likely that the patient may well have infectious complications in the future. Once healed, as purulence increases within the joint cavity, it may ultimately drain once again, with manifestation similar to those which were present at his current presentation. Definitive management would entail either prosthetic joint explantation or amputation, both of which the patient refuses to consider, and which may be of significant risk consider ing the patient's age and debility. For now, we will continue with conservative treatment measures, including local wound care and oral antibiotics as prescribed by Dr. Liu. The patient has been encouraged to maintain adequate nutritional intake. It appears as though the patient and his are fully cognizant of the clinical concerns. Patient is to return in 1 week for reassessment. Influenza vaccine was not administered today. The patient is not a smoker. Patient is 5 feet 10 inches tall. He he weighs 169 pounds. His BMI is 24.2, which is normal. Total time: 38 minutes.
== END 2020-04-30 23:59 ==
LOC: WC 08:48
PROVIDERS: PCP Family Medicine; Visit Provider Surgery
DX: T84.59XA Infection and inflammatory reaction due to other internal joint prosthesis, initial encounter (principal); Z96.659 Presence of unspecified artificial knee joint; R26.2 Difficulty in walking, not elsewhere classified; E55.9 Vitamin D deficiency, unspecified; E87.6 Hypokalemia; K21.9 Gastro-esophageal reflux disease without esophagitis; C18.9 Malignant neoplasm of colon, unspecified; N40.0 Benign prostatic hyperplasia without lower urinary tract symptoms; I48.0 Paroxysmal atrial fibrillation; E78.5 Hyperlipidemia, unspecified; I11.0 Hypertensive heart disease with heart failure; I50.9 Heart failure, unspecified; Z95.2 Presence of prosthetic heart valve; Z79.01 Long term (current) use of anticoagulants; Z82.49 Family history of ischemic heart disease and other diseases of the circulatory system; Z85.038 Personal history of other malignant neoplasm of large intestine; Z86.73 Personal history of transient ischemic attack (TIA), and cerebral infarction without residual deficits; Z95.0 Presence of cardiac pacemaker; Z96.652 Presence of left artificial knee joint; Z98.890 Other specified postprocedural states
CPT/HCPCS: 87070; 87075; 87077; 87186; 87205; 99213; G0463

== ENCOUNTER 2020-05-30 09:30 | Outpatient (RCR) | payer MEDICARE, SELFPAY ==
[2020-05-01 00:39] VITALS: BP 111/55; PULSE 50; RESP 16; TEMP 36.2
[2020-05-02 09:32] VITALS: BP 119/72; PULSE 62; RESP 16; TEMP 35.9; BMI 24.3
--- NOTE | 2020-05-02 10:52 | HP.PCM_ITS ---
(1) Left popliteal fossa abscess Status: Chronic (2) Valvular heart disease Status: Chronic Code(s): I38 - Endocarditis, valve unspecified (3) S/P AVR (aortic valve replacement) Status: Chronic Code(s): Z95.2 - Presence of prosthetic heart valve (4) S/P mitral valve repair Status: Chronic Code(s): Z98.890 - Other specified postprocedural states (5) CHF (congestive heart failure) Status: Chronic Qualifiers: Code(s): I50.9 - Heart failure, unspecified Comment: Suspect systolic (6) HTN (hypertension) Status: Chronic Qualifiers: Code(s): I10 - Essential (primary) hypertension (7) HLD (hyperlipidemia) Status: Chronic Qualifiers: Code(s): E78.5 - Hyperlipidemia, unspecified (8) PAF (paroxysmal atrial fibrillation) Status: Chronic Code(s): I48.0 - Paroxysmal atrial fibrillation (9) Status cardiac pacemaker Status: Chronic Code(s): Z95.0 - Presence of cardiac pacemaker (10) BPH (benign prostatic hyperplasia) Status: Chronic Code(s): N40.0 - Benign prostatic hyperplasia without lower urinary tract symptoms (11) Debility Status: Chronic Code(s): R53.81 - Other malaise (12) Colon cancer Status: Chronic Code(s): C18.9 - Malignant neoplasm of colon, unspecified (13) GERD (gastroesophageal reflux disease) Status: Chronic Code(s): K21.9 - Gastro-esophageal reflux disease without esophagitis (14) Hypokalemia Status: Chronic Code(s): E87.6 - Hypokalemia (15) Vitamin D deficiency Status: Chronic Code(s): E55.9 - Vitamin D deficiency, unspecified (16) Non-healing surgical wound Status: Chronic Qualifiers: Code(s): T81.89XA - Other complications of procedures, not elsewhere classified, initial encounter (17) Cerebrovascular accident (CVA) Status: Chronic Code(s): I63.9 - Cerebral infarction, unspecified (18) Infected prosthetic knee joint Status: Chronic Qualifiers: Code(s): T84.59XA - Infection and inflammatory reaction due to other internal joint prosthesis, initial encounter; Z96.659 - Presence of unspecified art ificial knee joint (19) Ambulatory dysfunction Status: Chronic Code(s): R26.2 - Difficulty in walking, not elsewhere classified History of Present Illness Date of Service: 05/02/20 Chief Complaint: Draining abscess sinus of the left popliteal space History of Wound: This is an 84-year-old male who was a prior patient here in December 2019 through February 2020. He was treated for an infected, draining sinus in the left popliteal space, thought to be due to an infected left knee prosthesis. Using a multidisciplinary approach, conservative treatment measures, the draining sinus eventually healed, and the patient was discharged and his last visit on February 08, 2020. At the time of his discharge, however, a lengthy and detailed discussion was undertaken with the patient and with his as to the concerns regarding long-term prognosis, and suspicion that the infected draining sinus would recur as a result of underlying infected of the prosthetic joint. Indeed, as had been feared, the patient returns today with a draining sinus from the left popliteal space at the same site as previously. The patient has been referred by Dr. Liu, who has maintained medical oversight of the patient's condition. It appears as though the area of involvement drained spontaneously approximately 10 days ago. He subsequently was evaluated by Dr. Liu by means of telehealth, and was switched from antibiotic mono-therapy to dual therapy, and is currently taking Augmentin and doxycycline as prescribed by Dr. Liu. The patient and his have interacted with Dr. Haywood recently, who offered surgical options which included joint removal and subsequent replacement, or leg amputation. The patient is resolute in his desire to avoid surgical intervention, and is also considered a high surgical risk for any major surgery. His recent medical history is detailed below. . In 2012, the patient underwent a left total knee replacement. 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 In October 2019, the patient developed a large abscess in the left popliteal space, which subsequently drained spontaneously. On October 27, 2019, the patient was taken to the operating room by Dr. Radames Haywood, who performed an irrigation and debridement of the left knee popliteal abscess. Since that time, the patient has had chronic drainage of purulent material. The draining sinus has failed to heal. He has recently been under the care of Dr. Liu, infectious disease specialist. The patient has been on long-term antibiotics, for infection suppression purposes. The patient is not felt to be a good candidate for major surgical intervention. The patient has suffered from a cerebrovascular accident within the last several weeks, which has adversely affected the right side of his body. As result, his ambulatory capacity has been impaired. Patient is able only to mobilize using a walker. Nursing staff at the patient's assisted living facility are involved in the patient's management. Past Medical History Past Medical History: Chronic Problems Left popliteal fossa abscess (Chronic) Valvular heart disease (Chronic) S/P AVR (aortic valve replacement) (Chronic) S/P mitral valve repair (Chronic) CHF (congestive heart failure) (Chronic) Suspect systolic HTN (hypertension) (Chronic) HLD (hyperlipidemia) (Chronic) PAF (paroxysmal atrial fibrillation) (Chronic) Status cardiac pacemaker (Chronic) BPH (benign prostatic hyperplasia) (Chronic) Debility (Chronic) Colon cancer (Chronic) GERD (gastroesophageal reflux disease) (Chronic) Hypokalemia (Chronic) Vitamin D deficiency (Chronic) Non-healing surgical wound (Chronic) Cerebrovascular accident (CVA) (Chronic) Infected prosthetic knee joint (Chronic) Ambulatory dysfunction (Chronic) Surgical History: appendectomy, herniorrhaphy - Abdominal., pacemaker implantation, total hip arthroplasty - Left., total knee arthroplasty - Left., tonsillectomy, - - Colon cancer resection, liver cyst intervention, aortic valve replacement, left total knee repair, recent left posterior knee abscess I&D. Allergies/Adverse Reactions: Allergies soap Allergy (Verified 02/23/21 09:17) PT UNSURE OF REACTION RASH WHEN USES SOAPS FROM HOSPITALS Home Medications: Ambulatory Orders Medication Instructions Recorded Amiodarone HCl [Cordarone] 200 mg PO DAILY 10/26/19 Cholecalciferol (VIT D3) [Vitamin 1,000 unit PO DAILY 10/26/19 D3] Furosemide [Lasix] 80 mg PO DAILY 10/26/19 Metoprolol Succinate [Toprol Xl] 25 mg PO DAILY 10/26/19 Pantoprazole Sodium [Protonix] 40 mg PO BID 10/26/19 Potassium Chloride [Klor-Con M20] 30 meq PO DAILY 10/26/19 Simvastatin [Zocor] 40 mg PO QHS 10/26/19 Tamsulosin HCl [Flomax] 0.4 mg PO DAILY 10/26/19 Warfarin [Coumadin] 2 mg PO SUTUTHSA 10/26/19 traZODone [Desyrel] 100 mg PO QHS 10/26/19 Acetaminophen [Tylenol] 1,000 mg PO Q6H PRN PRN tab 11/10/19 Fluoxetine [Prozac] 10 mg PO DAILY #30 cap 11/10/19 Julián (unflavored) [Julián Packet] 1 packet PO BIDCM #60 packet 11/10/19 Ammonium Lactate [Amlactin] 57 gm TP BID 12/30/19 Amoxicillin 2,000 mg PO DAILY PRN 12/30/19 Loperamide HCl [Imodium A-D] 2 mg PO Q4H PRN PRN 12/30/19 Warfarin [Coumadin ([facility])] 1 mg PO MOWEFR 12/30/19 Amoxicillin/Potassium Clav 1 ea PO BID 04/25/20 [Amox-Clav 875-125 mg Tablet] Doxycycline Hyclate 100 mg PO BID 04/25/20 Hydrocortisone 2.5% Crm [Hytone] 1 applic TOPICAL BID PRN 04/25/20 L.acidoph,Paracasei, B.lactis 250 mg PO DAILY 04/25/20 [Probiotic] - Family History Maternal Heart Disease, Hypertension Paternal Heart Disease Smoking Status: Never smoker Review of Systems Constitutional: Denies: Chills, Fever, Weight Change Eyes: Denies: Pain, Vision Change HEENT: Denies: Difficulty Hearing, Difficulty Swallowing, Sinus Congestion Cardiovascular: Denies: Chest Pain, Palpitations Respiratory: Denies: Cough, Shortness of Breath Gastrointestinal: Denies: Diarrhea, Nausea, Vomiting Genitourinary: Denies: Dysuria, Hematuria Endocrine: Denies: Heat/ Cold Intolerance, Polydipsia, Polyuria Hematologic/ Lymphatic: Denies: Easy Bruising, Easy Bleeding - Physical Exam Vital Signs Temp Pulse Resp BP 96.6 F L 62 16 119/72 05/02/20 09:32 05/02/20 09:32 05/02/20 09:32 05/02/20 09:32 General: Alert, Oriented x3, Cooperative, No apparent distress, Well developed, Well nourished HEENT: Atraumatic, PERRLA, EOMI, Normocephalic Oral: Moist Mucosa Neck: No JVD Lungs: Normal air movement Abdomen: Non-Distended Extremities: No clubbing, No cyanosis, No edema, No Calf Tenderness, - - Relatively small opening is noted in the left popliteal space. The opening diameter is approximately 2 mm. Using a sterile metal probe, the depth of the sinus tract is approximately 5.2 cm, and it appears to track superiorly directly to the joint space itself. Addt'l Wound Findings: There is no significant erythema about the opening to the sinus tract. No purulent drainage is noted. Skin: No rashes Wound Measurements and Assessment WC - Nurse 1 - General Ulcer Measurement Start: 05/02/20 09:30 Freq: Status: Active Protocol: Activity Type Activity Date Activity User E-Sign Co-Sign Detail Recorded Client Recorded Date Recorded By Document 05/02/20 09:32 [facility] [id number] 05/02/20 09:41 [facility] 05/02/20 09:32 W[facility] Center Nurse 1 [Ulcer Assessment] #2- L POST KNEE -Combined with other wound No -Current Size (cm) - Length 0.2 -Current Size (cm) - Width 0.3 -Current Size (cm) - Depth 0.4 -Total Square Cm 0.06 -Photo Taken No -Epithelialization None Present -Tunneling No -Undermining/Tunneling No -Circular Undermining No -Exudate Amt Large -Exudate Type Serosanguineous -Wound Margin Distinct, Outline Attached -Granulation Amt Large (67-100%) -Granulation Quality Red -Slough/Fibrin No -Necrosis Amt None Present (0 %) -Texture (Skylar-wound Skin Appearance) Assessed, Scarring -Moisture (Skylar-wound Skin Appearance Assessed ) -Color (Skylar-wound Skin Appearance) Assessed -Temperature (Skylar-wound Skin No Abnormality Appearance) (Pt Warm) -Tenderness on Palpation (Skylar-wound No Skin Appearance) -Ulcer Cleansing Rinsed/ Irrigated with Saline -Foul Odor after Cleansing No -Anesthetic Used 4% Lidocaine Solution Neurological: Cranial nerves II-XII grossly intact, Neuro grossly intact Psych/Mental Status: Normal Affect, Appropriate, Alert and oriented to time, place, person, mood and affect Debridement Note Laterality: Left - Popliteal space Type of Debridement: Excisional debridement Anesthesia Used: 5% Lidocaine Gel Depth: Down to and including healthy tissue, in the subcutaneous layer Percentage of wound debrided: 100 Instrument Used: - - 1 mm curette Tissue Removed: Bioburden Severity: Fat Layer Exposed Amount of bleeding with debridement: Mild Bleeding Controlled with: Compression and gauze Patient tolerated procedure well The sinus tract appears to extend superiorly towards the joint space, with a depth of approximately 5.2 cm. Assessment/Plan Assessment: This is an 84-year-old debilitated male with multiple pre-existing medical problems who presented with an infected left prosthetic knee joint and a draining sinus in the left popliteal space. The prosthetic knee joint was placed in 2012, and the patient presented only within recent months with apparent infection involving the knee joint, manifest as a draining sinus in the left popliteal space. The patient is known to both Dr. Haywood and Dr. Liu. The patient was evaluated by Dr. Liu recently, and Dr. Cristiano croft has prescribed antibiotic therapy, including Augmentin and doxycycline. Plan: We are to continue packing of the infected sinus using 1/4 inch Nu Gauze. This is to be performed on a daily basis. Patient is to continue antibiotic therapy as prescribed by Dr. Liu. We are to defer antibiotic management to Dr. Liu, our Infectious Disease specialist. Patient is to return to the Wound Center in 2 weeks. We have again discussed issues regarding long-term expectations. It is highly suspected that the patient's underlying prosthesis is colonized by bacteria, which is unlikely to be completely eradicated by antibiotic treatment alone. Even if the sinus tract were to heal, it is likely that the patient may well have infectious complications in the future. Once healed, as purulence increases within the joint cavity, it may ultimately drain once again, with manifestation similar to those which were present at his current presentation. Definitive management would entail either prosthetic joint explantation or amputation, both of which the patient refuses to consider, and which may be of significant risk considering the patient's age and debility. For now, we will continue with conservative treatment measures, including local wound care and oral antibiotics as prescribed by Dr. Liu. The patient has been encouraged to maintain adequate nutritional intake. It appears as though the patient and his are fully cognizant of the clinical concerns. Patient is to return in 2 weeks for reassessment. Influenza vaccine was not admin istered today. The patient is not a smoker. Patient is 5 feet 10 inches tall. He he weighs 169 pounds. His BMI is 24.2, which is normal. Total time: 26 minutes.
--- NOTE | 2020-05-17 08:38 | WC ---
[place] the nurse for the patient at [facility] contacted this nurse stating patient was complaining of increased pain in the wound area and that when removing the prior dressing there was increased bleeding for the area. I advised her to monitor the site and any signs of infection that the patient should be taken to the ED for evaluation. Physician notified and agrees with recommendations
[2020-05-30 09:17] VITALS: BP 119/70; PULSE 66; TEMP 35.9; BMI 24.3
[2020-05-30 09:31] VITALS: BP 121/74
--- NOTE | 2020-05-30 09:32 | HP.PCM_ITS ---
(1) Left popliteal fossa abscess Status: Chronic (2) Valvular heart disease Status: Chronic Code(s): I38 - Endocarditis, valve unspecified (3) S/P AVR (aortic valve replacement) Status: Chronic Code(s): Z95.2 - Presence of prosthetic heart valve (4) S/P mitral valve repair Status: Chronic Code(s): Z98.890 - Other specified postprocedural states (5) CHF (congestive heart failure) Status: Chronic Qualifiers: Code(s): I50.9 - Heart failure, unspecified Comment: Suspect systolic (6) HTN (hypertension) Status: Chronic Qualifiers: Code(s): I10 - Essential (primary) hypertension (7) HLD (hyperlipidemia) Status: Chronic Qualifiers: Code(s): E78.5 - Hyperlipidemia, unspecified (8) PAF (paroxysmal atrial fibrillation) Status: Chronic Code(s): I48.0 - Paroxysmal atrial fibrillation (9) Status cardiac pacemaker Status: Chronic Code(s): Z95.0 - Presence of cardiac pacemaker (10) BPH (benign prostatic hyperplasia) Status: Chronic Code(s): N40.0 - Benign prostatic hyperplasia without lower urinary tract symptoms (11) Debility Status: Chronic Code(s): R53.81 - Other malaise (12) Colon cancer Status: Chronic Code(s): C18.9 - Malignant neoplasm of colon, unspecified (13) GERD (gastroesophageal reflux disease) Status: Chronic Code(s): K21.9 - Gastro-esophageal reflux disease without esophagitis (14) Hypokalemia Status: Chronic Code(s): E87.6 - Hypokalemia (15) Vitamin D deficiency Status: Chronic Code(s): E55.9 - Vitamin D deficiency, unspecified (16) Non-healing surgical wound Status: Chronic Qualifiers: Code(s): T81.89XA - Other complications of procedures, not elsewhere classified, initial encounter (17) Cerebrovascular accident (CVA) Status: Chronic Code(s): I63.9 - Cerebral infarction, unspecified (18) Infected prosthetic knee joint Status: Chronic Qualifiers: Code(s): T84.59XA - Infection and inflammatory reaction due to other internal joint prosthesis, initial encounter; Z96.659 - Presence of unspecified art ificial knee joint (19) Ambulatory dysfunction Status: Chronic Code(s): R26.2 - Difficulty in walking, not elsewhere classified History of Present Illness Date of Service: 05/30/20 Chief Complaint: Draining abscess sinus of the left popliteal space History of Wound: This is an 84-year-old male who was a prior patient here in December 2019 through February 2020. He was treated for an infected, draining sinus in the left popliteal space, thought to be due to an infected left knee prosthesis. Using a multidisciplinary approach, conservative treatment measures, the draining sinus eventually healed, and the patient was discharged and his last visit on February 08, 2020. At the time of his discharge, however, a lengthy and detailed discussion was undertaken with the patient and with his as to the concerns regarding long-term prognosis, and suspicion that the infected draining sinus would recur as a result of underlying infected of the prosthetic joint. Indeed, as had been feared, the patient returns today with a draining sinus from the left popliteal space at the same site as previously. The patient has been referred by Dr. Liu, who has maintained medical oversight of the patient's condition. It appears as though the area of involvement drained spontaneously approximately 10 days ago. He subsequently was evaluated by Dr. Liu by means of telehealth, and was switched from antibiotic mono-therapy to dual therapy, and is currently taking Augmentin and doxycycline as prescribed by Dr. Liu. The patient and his have interacted with Dr. Haywood recently, who offered surgical options which included joint removal and subsequent replacement, or leg amputation. The patient is resolute in his desire to avoid surgical intervention, and is also considered a high surgical risk for any major surgery. His recent medical history is detailed below. . In 2012, the patient underwent a left total knee replacement. 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 In October 2019, the patient developed a large abscess in the left popliteal space, which subsequently drained spontaneously. On October 27, 2019, the patient was taken to the operating room by Dr. Radames Haywood, who performed an irrigation and debridement of the left knee popliteal abscess. Since that time, the patient has had chronic drainage of purulent material. The draining sinus has failed to heal. He has recently been under the care of Dr. Liu, infectious disease specialist. The patient has been on long-term antibiotics, for infection suppression purposes. The patient is not felt to be a good candidate for major surgical intervention. The patient has suffered from a cerebrovascular accident within the last several weeks, which has adversely affected the right side of his body. As result, his ambulatory capacity has been impaired. Patient is able only to mobilize using a walker. Nursing staff at the patient's assisted living facility are involved in the patient's management. Past Medical History Past Medical History: Chronic Problems Left popliteal fossa abscess (Chronic) Valvular heart disease (Chronic) S/P AVR (aortic valve replacement) (Chronic) S/P mitral valve repair (Chronic) CHF (congestive heart failure) (Chronic) Suspect systolic HTN (hypertension) (Chronic) HLD (hyperlipidemia) (Chronic) PAF (paroxysmal atrial fibrillation) (Chronic) Status cardiac pacemaker (Chronic) BPH (benign prostatic hyperplasia) (Chronic) Debility (Chronic) Colon cancer (Chronic) GERD (gastroesophageal reflux disease) (Chronic) Hypokalemia (Chronic) Vitamin D deficiency (Chronic) Non-healing surgical wound (Chronic) Cerebrovascular accident (CVA) (Chronic) Infected prosthetic knee joint (Chronic) Ambulatory dysfunction (Chronic) Surgical History: appendectomy, herniorrhaphy - Abdominal., pacemaker implantation, total hip arthroplasty - Left., total knee arthroplasty - Left., tonsillectomy, - - Colon cancer resection, liver cyst intervention, aortic valve replacement, left total knee repair, recent left posterior knee abscess I&D. Allergies/Adverse Reactions: Allergies soap Allergy (Verified 02/23/21 09:17) PT UNSURE OF REACTION RASH WHEN USES SOAPS FROM HOSPITALS Home Medications: Ambulatory Orders Medication Instructions Recorded Amiodarone HCl [Cordarone] 200 mg PO DAILY 10/26/19 Cholecalciferol (VIT D3) [Vitamin 1,000 unit PO DAILY 10/26/19 D3] Furosemide [Lasix] 80 mg PO DAILY 10/26/19 Metoprolol Succinate [Toprol Xl] 25 mg PO DAILY 10/26/19 Pantoprazole Sodium [Protonix] 40 mg PO BID 10/26/19 Potassium Chloride [Klor-Con M20] 30 meq PO DAILY 10/26/19 Simvastatin [Zocor] 40 mg PO QHS 10/26/19 Tamsulosin HCl [Flomax] 0.4 mg PO DAILY 10/26/19 Warfarin [Coumadin] 2 mg PO SUTUTHSA 10/26/19 traZODone [Desyrel] 100 mg PO QHS 10/26/19 Acetaminophen [Tylenol] 1,000 mg PO Q6H PRN PRN tab 11/10/19 Fluoxetine [Prozac] 10 mg PO DAILY #30 cap 11/10/19 Julián (unflavored) [Julián Packet] 1 packet PO BIDCM #60 packet 11/10/19 Ammonium Lactate [Amlactin] 57 gm TP BID 12/30/19 Amoxicillin 2,000 mg PO DAILY PRN 12/30/19 Loperamide HCl [Imodium A-D] 2 mg PO Q4H PRN PRN 12/30/19 Warfarin [Coumadin (PBKC)] 1 mg PO MOWEFR 12/30/19 Amoxicillin/Potassium Clav 1 ea PO BID 04/25/20 [Amox-Clav 875-125 mg Tablet] Doxycycline Hyclate 100 mg PO BID 04/25/20 Hydrocortisone 2.5% Crm [Hytone] 1 applic TOPICAL BID PRN 04/25/20 L.acidoph,Paracasei, B.lactis 250 mg PO DAILY 04/25/20 [Probiotic] - Family History Maternal Heart Disease, Hypertension Paternal Heart Disease Smoking Status: Never smoker Review of Systems Constitutional: Denies: Chills, Fever, Weight Change Eyes: Denies: Pain, Vision Change HEENT: Denies: Difficulty Hearing, Difficulty Swallowing, Sinus Congestion Cardiovascular: Denies: Chest Pain, Palpitations Respiratory: Denies: Cough, Shortness of Breath Gastrointestinal: Denies: Diarrhea, Nausea, Vomiting Genitourinary: Denies: Dysuria, Hematuria Endocrine: Denies: Heat/ Cold Intolerance, Polydipsia, Polyuria Hematologic/ Lymphatic: Denies: Easy Bruising, Easy Bleeding - Physical Exam Vital Signs Temp Pulse Resp BP 96.7 F L 66 16 121/74 H 05/30/20 09:17 05/30/20 09:17 05/02/20 09:32 05/30/20 09:31 General: Alert, Oriented x3, Cooperative, No apparent distress, Well developed, Well nourished HEENT: Atraumatic, PERRLA, EOMI, Normocephalic Oral: Moist Mucosa Neck: No JVD Lungs: Normal air movement Abdomen: Non-Distended Extremities: No clubbing, No cyanosis, No edema, No Calf Tenderness, - - The abscess site in the left popliteal fossa appears to be healed. There is no drainage. There is no apparent fluctuance. There is no sign of cellulitis. Skin: No rashes Wound Measurements and Assessment WC - Nurse 1 - General Ulcer Measurement Start: 05/02/20 09:30 Freq: Status: Active Protocol: Activity Type Activity Date Activity User E-Sign Co-Sign Detail Recorded Client Recorded Date Recorded By Document 05/30/20 09:17 JESUS [id number] 05/30/20 09:19 JESUS 05/30/20 09:17 Wound Center Nurse 1 [Ulcer Assessment] #2- L POST KNEE -Current Size (cm) - Length 0.1 -Current Size (cm) - Width 0.1 -Current Size (cm) - Depth 0.1 -Total Square Cm 0.01 -Exudate Amt Small -Exudate Type Yellow/Green -Wound Margin Distinct, Outline Attached -Granulation Amt None Present (0 %) -Granulation Quality Red -Necrosis Amt Large (67-100%) -Necrotic Tissue Type Adherent Slough -Texture (Skylar-wound Skin Appearance) Assessed, Scarring -Moisture (Skylar-wound Skin Appearance No Abnormality, ) Assessed -Color (Skylar-wound Skin Appearance) No Abnormality, Assessed -Temperature (Skylar-wound Skin No Abnormality Appearance) (Pt Warm) -Tenderness on Palpation (Skylar-wound No Skin Appearance) -Ulcer Cleansing Rinsed/ Irrigated with Saline -Foul Odor after Cleansing No -Anesthetic Used 4% Lidocaine Solution WC - Nurse 3 - General Ulcer D/C NN Start: 05/02/20 09:30 Freq: Status: Active Protocol: Activity Type Activity Date Activity User E-Sign Co-Sign Detail Recorded Client Recorded Date Recorded By Document 05/30/20 09:31 JESUS [id number] 05/30/20 09:32 JESUS 05/30/20 09:31 Wound Care Nurse 3 [Wound Dressing] -Ulcer Cleansing Rinsed/ Irrigated with Saline -Primary Dressing Covered/Secured Dry Gauze, with Secured with Tape Vital Signs [Blood Pressure] -Blood Pressure (90/60-120/80) 121/74 H -Blood Pressure Mean (mm Hg) 89 -Source Monitor -Position Sitting -Blood Pressure Location Right Arm Pain Scale: 0-10 Numeric [Pain] -Is Patient Pain Free? Yes WC - Visit Discharge [Visit Discharge Information] -Discharge Condition Stable -Ambulatory Status Wheelchair -Transportation Private Auto -Accompanied by Neurological: Cranial nerves II-XII grossly intact, Neuro grossly intact Psych/Mental Status: Normal Affect, Appropriate, Alert and oriented to time, place, person, mood and affect Debridement Note Post-Debridement Measurements/Treatment WC - Nurse 2 - General Ulcer CM Notes Start: 05/02/20 09:30 Freq: Status: Active Protocol: Activity Type Activity Date Activity User E-Sign Co-Sign Detail Recorded Client Recorded Date Recorded By Document 05/02/20 13:54 [email or web address] [id number] 05/02/20 13:55 PL 05/02/20 13:54 Wound Center Nurse 2 #2- L POST KNEE -Time 10:37 -Correct Patient Yes -Correct Side, Site, Position Yes -Correct Procedure Yes -Procedure Performed Yes -Type of Procedure Debridement -Clinical Debridement Subcutaneous -Tissue Removed Subcutaneous -Post Debridement (cm) - Length 0.2 -Post Debridement (cm) - Width 0.3 -Post Debridement (cm) - Depth 5.2 -Total Square (Post) (cm) 0.06 -Area of Debridement (cm) - Length 0.2 -Area of Debridement (cm) - Width 0.3 -Total Square (Area) (cm) 0.06 -Tunneling No -Undermining/Tunneling No -Circular Undermining No -Wound/Ulcer Outcome Not Healed -Ulcer Cleansing Rinsed/ Irrigated with Saline -Foul Odor after Cleansing No -Bioengineered Tissue No -Debridement - Subq, 1st 20sq cm Yes Pain Scale: 0-10 Numeric Is Patient Pain Free? Yes WC - Nurse 3 - General Ulcer D/C NN Start: 05/02/20 09:30 Freq: Status: Active Protocol: Activity Type Activity Date Activity User E-Sign Co-Sign Detail Recorded Client Recorded Date Recorded By Document 05/30/20 09:31 JESUS [id number] 05/30/20 09:32 JESUS 05/30/20 09:31 Wound Care Nurse 3 #2- L POST KNEE -Ulcer Cleansing Rinsed/ Irrigated with Saline -Primary Dressing Covered/Secured with Dry Gauze, Secured with Tape Vital Signs Blood Pressure (90/60-120/80) 121/74 H Blood Pressure Mean (mm Hg) 89 Source Monitor Position Sitting Blood Pressure Location Right Arm Pain Scale: 0-10 Numeric Is Patient Pain Free? Yes WC - Visit Discharge Discharge Condition Stable Ambulatory Status Wheelchair Transportation Private Auto Accompanied by No debridement was completed today - There are no open wounds or ulcerations. Assessment/Plan Active Problems Left popliteal fossa abscess (Chronic) Valvular heart disease (Chronic) S/P AVR (aortic valve replacement) (Chronic) S/P mitral valve repair (Chronic) CHF (congestive heart failure) (Chronic) Suspect systolic HTN (hypertension) (Chronic) HLD (hyperlipidemia) (Chronic) PAF (paroxysmal atrial fibrillation) (Chronic) Status cardiac pacemaker (Chronic) BPH (benign prostatic hyperplasia) (Chronic) Debility (Chronic) Colon cancer (Chronic) GERD (gastroesophageal reflux disease) (Chronic) Hypokalemia (Chronic) Vitamin D deficiency (Chronic) Non-healing surgical wound (Chronic) Cerebrovascular accident (CVA) (Chronic) Infected prosthetic knee joint (Chronic) Ambulatory dysfunction (Chronic) Assessment: This is an 84-year-old debilitated male with multiple pre-existing medical problems who presented with an infected left prosthetic knee joint and a draining sinus in the left popliteal space. The prosthetic knee joint was placed in 2012, and the patient presented with apparent infection involving the knee joint, manifest as a draining sinus in the left popliteal space. The patient is known to both Dr. Haywood and Dr. Liu. The patient was evaluated by Dr. Liu in the recent past, and Dr. Liu prescribed antibiotic therapy, including Augmentin and doxycycline. However, currently, the patient is not taking any antibiotics. Plan: At this juncture, the abscess site in the left popliteal area appears to be healed. There is no active drainage. There is no fluctuance or cellulitis. The patient is to be discharged at this time. He is to maintain a dry gauze dressing over the site. We are to defer antibiotic management to Dr. Liu, our Infectious Disease specialist. The patient has an appointment with Dr. Liu in 2 weeks on an outpatient basis. Patient has been instructed to continue with nutritional supplements, which currently include the use of Julián several times daily. We have again discussed issues regarding long-term expecta tions. It is highly suspected that the patient's underlying prosthesis is colonized by bacteria, which is unlikely to be completely eradicated by antibiotic treatment alone. Even with the site devoid of drainage currently, it is likely that the patient may well have infectious complications in the future. As purulence increases within the joint cavity, it may ultimately drain once again, with manifestations similar to those which have occurred previously. Definitive management would entail either prosthetic joint explantation or amputation, both of which the patient refuses to consider, and which may be of significant risk considering the patient's age and debility. For now, we will continue with conservative treatment measures.The patient has been encouraged to maintain adequate nutritional intake. It appears as though the patient and his are fully cognizant of the clinical concerns. The patient is to be discharged, and will follow-up henceforth on an as-needed basis. It is anticipated that as purulence within the joint increases, his sinus tract will once again drain purulent material, at which time the patient will return for resumption of his management. Influenza vaccine was not administered today. The patient is not a smoker. Patient is 5 feet 10 inches tall. He he weighs 169 pounds. His BMI is 24.2, which is normal. Total time: 25 minutes.
== END 2020-05-30 09:46 | disposition home or self-care (01) ==
LOC: WC 09:30
PROVIDERS: PCP Family Medicine; Visit Provider Surgery
DX: T84.59XA Infection and inflammatory reaction due to other internal joint prosthesis, initial encounter (principal); T81.89XA Other complications of procedures, not elsewhere classified, initial encounter; R26.2 Difficulty in walking, not elsewhere classified; Z86.73 Personal history of transient ischemic attack (TIA), and cerebral infarction without residual deficits; E55.9 Vitamin D deficiency, unspecified; E87.6 Hypokalemia; K21.9 Gastro-esophageal reflux disease without esophagitis; C18.9 Malignant neoplasm of colon, unspecified; N40.0 Benign prostatic hyperplasia without lower urinary tract symptoms; I48.0 Paroxysmal atrial fibrillation; Z95.0 Presence of cardiac pacemaker; E78.5 Hyperlipidemia, unspecified; I11.0 Hypertensive heart disease with heart failure; I50.9 Heart failure, unspecified; Z95.2 Presence of prosthetic heart valve; I38 Endocarditis, valve unspecified; Z79.01 Long term (current) use of anticoagulants; Z82.49 Family history of ischemic heart disease and other diseases of the circulatory system; Z85.038 Personal history of other malignant neoplasm of large intestine; Z96.653 Presence of artificial knee joint, bilateral; Z98.890 Other specified postprocedural states
CPT/HCPCS: 11042; 99213; G0463